=== PATIENT | female | born 1950 | race American Indian/Alaskan Native ===

== ENCOUNTER 2021-09-19 15:15 | Inpatient (IN) ==
--- NOTE | 2021-09-19 16:39 | Emergency Department Note ---
HPI General Chief complaint: Shortness of Breath/Dyspnea Stated complaint: SOB, Abdominal Pain Time Seen by Provider: 09/19/21 15:24 Source: patient and RN notes reviewed Mode of arrival: wheelchair Limitations: no limitations History of Present Illness HPI Narrative: Narrative: Related Data Home Medications Medication Instructions Recorded Confirmed omeprazole 20 mg tablet,delayed 20 mg PO BID 10/15/15 09/15/21 release oxybutynin chloride 5 mg tablet 5 mg PO BID tab 10/15/15 09/12/21 atorvastatin 80 mg tablet 80 mg PO QHS 11/02/19 09/12/21 carvedilol 6.25 mg tablet (Coreg) 6.25 mg PO BID 11/02/19 09/15/21 docusate sodium 100 mg capsule 100 mg PO QDAY 11/02/19 09/12/21 magnesium oxide 420 mg tablet 420 mg PO QDAY 11/02/19 09/12/21 potassium chloride 20 mEq 20 meq PO QDAY 11/02/19 09/12/21 tablet,extended release sucralfate 1 gram tablet 1 g PO BID tab 11/02/19 09/15/21 acetaminophen 325 mg tablet 325 mg PO Q4H PRN 09/12/21 09/12/21 aspirin 81 mg tablet,delayed 81 mg PO QDAY 09/12/21 09/15/21 release calcium carbonate 300 mg (750 mg) 325 mg PO TID 09/12/21 09/12/21 chewable tablet (Tums) cyanocobalamin (vitamin B-12) 1,000 mcg PO QDAY 09/12/21 09/12/21 1,000 mcg tablet (Vitamin B-12) ergocalciferol (vitamin D2) 1,250 1,250 mcg PO QMONTH 09/12/21 09/12/21 mcg (50,000 unit) capsule ibuprofen 200 mg tablet 400 mg PO Q6H PRN 09/12/21 09/12/21 polyethylene glycol 3350 17 gram 17 g PO QDAY 09/12/21 09/12/21 oral powder packet (Miralax) rituximab 10 mg/mL 1,000 mg IV MONTHLY 09/12/21 09/12/21 concentrate,intravenous (Rituxan) spironolactone 25 mg tablet 25 mg PO QDAY 09/12/21 09/15/21 vitamin A-vitamin C-vit E-min 1 tab PO QDAY 09/12/21 09/12/21 tablet warfarin 2.5 mg tablet 2.5 mg PO MOWEFR@1400 09/15/21 09/15/21 warfarin 4 mg tablet 4 mg PO SUTUTHSA@1400 09/15/21 09/15/21 Previous Rx's Medication Instructions Recorded cevimeline 30 mg capsule 1 cap PO TID #90 cap 05/21/21 prednisone 5 mg tablet 5 mg PO QDAY #90 tab 08/05/21 docusate sodium 100 mg capsule 100 mg PO QDAY #60 cap 09/15/21 hydrocodone 10 mg-acetaminophen 1 - 2 tab PO Q4HP PRN #75 tab 09/15/21 325 mg tablet Allergies Allergy/AdvReac Type Severity Reaction Status Date / Time lidocaine Allergy Severe Fainting Verified 09/15/21 09:28 nitrofurantoin AdvReac Severe Nausea and Verified 09/15/21 09:25 Diarrhea Review of Systems ROS ROS Narrative: Narrative: PFSH Narrative Patient History Narrative: Narrative: Medical/Surgical/Family History All Active Problems (Updated 09/19/21 @ 16:58 by Sudhir Douglas MD) Dyspnea (Acute) Stiffness of right wrist, not elsewhere classified (Chronic) Rheumatoid arthritis (Acute) Sjogrens syndrome (Acute) Hypertension (Chronic) Ataxic gait (Chronic) Pulmonary embolism (Chronic) History of DVT (deep vein thrombosis) (Chronic) Anemia (Chronic) Hx of bilateral cataract extraction (Chronic) Heartburn (Chronic) Headache (Chronic) Depression (Chronic) Sinusitis (Chronic) Frequent urination at night (Chronic) Easy bruising (Chronic) 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) Sicca syndrome (Chronic) Elevated erythrocyte sedimentation rate (Chronic) Long-term current use of steroids (Chronic) Dermatitis (Chronic) Tobacco use disorder (Chronic) Joint pain (Chronic) UTI (urinary tract infection) (Chronic) Muscle weakness (Chronic) Muscle tenderness (Chronic) Joint swelling (Chronic) Sneezing (Chronic) Elevated liver enzymes (Chronic) Antinuclear factor positive (Chronic) Encounter for long-term (current) use of high-risk medication (Acute) Antiphospholipid antibody syndrome (Chronic) Overlap syndrome (Chronic) Uncontrolled hypertension (Chronic) Onychomycosis due to dermatophyte (Chronic) Colon polyps (Chronic) Chronic kidney disease (Chronic) Vitamin D deficiency (Chronic) Osteopenia (Chronic) Mild ascending aorta dilation (Chronic) Blood coagulation disorder (Chronic) B12 deficiency (Chronic) Neurogenic bladder (Chronic) Seasonal allergic rhinitis (Chronic) Phlebitis and thrombophlebitis (Chronic) Secondary iritis of both eyes (Chronic) Pseudophakia (Chronic) Essential hypertension (Chronic) Chronic anticoagulation (Chronic) Chronic back pain (Chronic) Chronic depression (Chronic) Chronic serous otitis media (Chronic) GERD (gastroesophageal reflux disease) (Chronic) Labile essential hypertension (Chronic) Lower urinary tract infectious disease (Chronic) Malaise and fatigue (Chronic) Dry eyes (Chronic) Ptosis of eyelid (Chronic) After-cataract with vision obscured (Chronic) Pharyngitis (Chronic) Streptococcal sore throat (Chronic) Dehydration (Chronic) Abrasion or friction burn of shoulder without infection (Chronic) 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 (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) Nonexudative age-related macular degeneration (Chronic) Suspected UTI (Chronic) Hereditary thrombophilia (Chronic) Weight decreased (Chronic) Abnormal weight loss (Chronic) Dysphasia (Chronic) Upper respiratory infection (Chronic) Myopia (Chronic) Presbyopia (Chronic) Gastritis (Chronic) Cough (Chronic) Hypokalemia (Chronic) Onychogryposis (Chronic) Onychomycosis (Chronic) Bilateral foot pain (Chronic) Contusion of rib (Chronic) Fall (Chronic) Dizziness (Chronic) Rib pain (Chronic) Toe pain, bilateral (Chronic) Irregular heart rate (Chronic) Supraventricular tachycardia (Chronic) Uterine fibroid (Chronic) Thrombophlebitis of left leg (Chronic) Erythema nodosum (Chronic) Venous stasis ulcer of left lower extremity (Chronic) History of EKG (Chronic 11/20/09) Stenosing tenosynovitis of finger of left hand (Acute) Osteoporosis (Chronic) Acute coronary syndrome with high troponin (Acute) Medical History (Updated 09/19/21 @ 16:58 by Sudhir Douglas MD) Abnormal weight loss Abrasion or friction burn of shoulder without infection After-cataract with vision obscured Anemia Antiphospholipid antibody syndrome Ataxic gait B12 deficiency Bilateral foot pain Blood coagulation disorder Chronic anticoagulation Chronic back pain Chronic depression Chronic kidney disease Chronic serous otitis media Colon polyps Contusion of rib Cough Dehydration Depression Dermatitis Dizziness Dry eyes Dysphasia Easy bruising Elevated erythrocyte sedimentation rate Elevated liver enzymes Encounter for long-term (current) use of high-risk medication Erythema nodosum Essential hypertension Fall Frequent urination at night Gastritis GERD (gastroesophageal reflux disease) Headache Heartburn Hereditary thrombophilia History of DVT (deep vein thrombosis) On Coumadin since June 2006 History of EKG (11/20/09) Hypertension Hypokalemia Irregular heart rate Joint pain Joint swelling Labile essential hypertension half-way use of drug Long-term current use of steroids Lower urinary tract infectious disease Malaise and fatigue Mild ascending aorta dilation Muscle tenderness Muscle weakness Myopia Neurogenic bladder Nonexudative age-related macular degeneration Onychogryposis Onychomycosis Onychomycosis due to dermatophyte Osteopenia Osteoporosis 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 Overlap syndrome Pharyngitis Phlebitis and thrombophlebitis Presbyopia Pseudophakia Ptosis of eyelid Pulmonary embolism 2005 Rheumatoid arthritis Rib pain Seasonal allergic rhinitis Secondary iritis of both eyes Sicca syndrome Sinusitis Sjogrens syndrome Sneezing Frequent Stenosing tenosynovitis of finger of left hand Stiffness of right wrist, not elsewhere classified Streptococcal sore throat Supraventricular tachycardia Suspected UTI Thrombophlebitis of left leg resolved Tobacco use disorder Toe pain, bilateral Uncontrolled hypertension Upper respiratory infection Uterine fibroid UTI (urinary tract infection) Post-antibiotic Venous stasis ulcer of left lower extremity Vitamin D deficiency Weight decreased Surgical History H/O: hysterectomy 1992 History of cataract surgery (05/23/14) History of colonoscopy (10/25/15) Hx of bilateral cataract extraction Status post debridement (10/14/11) toenail Family History Father Heart failure at age 80 Mother Tuberculosis Cardiac disease at age 55 Sister Malignant neoplasm Social History Smoking Status: Former smoker Alcohol Intake Frequency: does not drink Substance Use: does not use Exam Narrative Narrative: Narrative: General Limitations: no limitations Course Vital Signs Vital signs: Vital Signs Temperature 100.6 F H 09/19/21 15:16 Pulse Rate 90 09/19/21 15:16 Respiratory Rate 20 09/19/21 15:16 Blood Pressure 115/75 09/19/21 15:16 Pulse Oximetry (%) 84 L 09/19/21 15:16 Temperature 100.6 F H 09/19/21 15:16 Pulse Rate 92 H 09/19/21 16:57 Respiratory Rate 20 09/19/21 15:16 Blood Pressure 143/88 09/19/21 16:57 Pulse Oximetry (%) 88 L 09/19/21 16:57 MDM MDM Narrative Medical decision making narrative: Narrative: Lab Data Result diagrams: 09/19/21 16:58 09/19/21 16:58 EKG Data EKG #1: EKG attestation: Yes I reviewed and interpreted this EKG. and Yes There are no EKG findings of acute coronary syndrome EKG results narrative: Normal sinus rhythm at [address] elevation or depression. Evidence of LVH. Interpretation: no acute changes Discharge Plan Patient/Caregiver Discharge Instructions Follow up with: Rhona Skinner MD [Primary Care Provider] - Prescriptions: No Action prednisone 5 mg tablet 5 mg PO QDAY Qty: 90 0RF Rx Instructions: administer with food or milk oxybutynin chloride 5 mg tablet 5 mg PO BID 0RF omeprazole 20 mg tablet,delayed release (DR/EC) 20 mg PO BID 0RF sucralfate 1 gram tablet 1 g PO BID 0RF potassium chloride 20 mEq tablet extended release 20 meq PO QDAY 0RF magnesium oxide 420 mg tablet 420 mg PO QDAY 0RF atorvastatin 80 mg tablet 80 mg PO QHS 0RF docusate sodium 100 mg capsule 100 mg PO QDAY 0RF carvedilol [Coreg] 6.25 mg tablet 6.25 mg PO BID 0RF cevimeline 30 mg capsule 1 cap PO TID Qty: 90 5RF acetaminophen 325 mg Tablet 325 mg PO Q4H PRN (Reason: Pain) 0RF polyethylene glycol 3350 [Miralax] 17 gram Powder In Packet 17 g PO QDAY 0RF Rx Instructions: q other day cyanocobalamin (vitamin B-12) [Vitamin B-12] 1,000 mcg Tablet 1,000 mcg PO QDAY 0RF calcium carbonate [Tums] 300 mg (750 mg) Tablet,Chewable 325 mg PO TID 0RF spironolactone 25 mg Tablet 25 mg PO QDAY 0RF ergocalciferol (vitamin D2) 1,250 mcg (50,000 unit) Capsule 1,250 mcg PO QMONTH 0RF Rituxan 10 mg/mL Concentrate 1,000 mg IV MONTHLY 0RF Rx Instructions: Q6 months Ocuvite Tablet 1 tab PO QDAY 0RF aspirin 81 mg Tablet,Delayed Release (Dr/Ec) 81 mg PO QDAY 0RF ibuprofen 200 mg Tablet 400 mg PO Q6H PRN (Reason: Pain) 0RF hydrocodone-acetaminophen 10-325 mg Tablet 1 - 2 tab PO Q4HP PRN (Reason: Per Pain Protocol) Qty: 75 0RF docusate sodium 100 mg Capsule 100 mg PO QDAY Qty: 60 0RF warfarin 2.5 mg Tablet 2.5 mg PO MOWEFR@1400 0RF warfarin 4 mg Tablet 4 mg PO SUTUTHSA@1400 0RF
--- NOTE | 2021-09-19 17:25 | Emergency Department Note ---
HPI General Chief complaint: Shortness of Breath/Dyspnea Stated complaint: SOB, Abdominal Pain Time Seen by Provider: 09/19/21 15:24 Source: patient and RN notes reviewed Mode of arrival: wheelchair Limitations: no limitations History of Present Illness HPI Narrative: 70-year-old female with past medical history of Sjogren's syndrome, rheumatoid arthritis, hypertension, antiphospholipid antibody syndrome with prior DVT and PE, CKD, and CAD presenting with shortness of breath. Patient had an ORIF for a right humerus fracture 4 days ago and was discharged to a [facility] facility. She states she has been short of breath for the last 2 days and today she was noted to be hypoxic to the mid 80s on room air. Patient is not on O2 at baseline. Patient also endorses left lower quadrant abdominal pain and had one episode of vomiting. No diarrhea, blood in the stool, melena, dysuria, or hematuria. Patient denies fever or cough. She has received the Covid vaccine. She is on warfarin and has been compliant. History of hysterectomy. No lower extremity swelling. Related Data Home Medications Medication Instructions Recorded Confirmed omeprazole 20 mg tablet,delayed 20 mg PO BID 10/15/15 09/15/21 release oxybutynin chloride 5 mg tablet 5 mg PO BID tab 10/15/15 09/12/21 atorvastatin 80 mg tablet 80 mg PO QHS 11/02/19 09/12/21 carvedilol 6.25 mg tablet (Coreg) 6.25 mg PO BID 11/02/19 09/15/21 docusate sodium 100 mg capsule 100 mg PO QDAY 11/02/19 09/12/21 magnesium oxide 420 mg tablet 420 mg PO QDAY 11/02/19 09/12/21 potassium chloride 20 mEq 20 meq PO QDAY 11/02/19 09/12/21 tablet,extended release sucralfate 1 gram tablet 1 g PO BID tab 11/02/19 09/15/21 acetaminophen 325 mg tablet 325 mg PO Q4H PRN 09/12/21 09/12/21 aspirin 81 mg tablet,delayed 81 mg PO QDAY 09/12/21 09/15/21 release calcium carbonate 300 mg (750 mg) 325 mg PO TID 09/12/21 09/12/21 chewable tablet (Tums) cyanocobalamin (vitamin B-12) 1,000 mcg PO QDAY 09/12/21 09/12/21 1,000 mcg tablet (Vitamin B-12) ergocalciferol (vitamin D2) 1,250 1,250 mcg PO QMONTH 09/12/21 09/12/21 mcg (50,000 unit) capsule ibuprofen 200 mg tablet 400 mg PO Q6H PRN 09/12/21 09/12/21 polyethylene glycol 3350 17 gram 17 g PO QDAY 09/12/21 09/12/21 oral powder packet (Miralax) rituximab 10 mg/mL 1,000 mg IV MONTHLY 09/12/21 09/12/21 concentrate,intravenous (Rituxan) spironolactone 25 mg tablet 25 mg PO QDAY 09/12/21 09/15/21 vitamin A-vitamin C-vit E-min 1 tab PO QDAY 09/12/21 09/12/21 tablet warfarin 2.5 mg tablet 2.5 mg PO MOWEFR@1400 09/15/21 09/15/21 warfarin 4 mg tablet 4 mg PO SUTUTHSA@1400 09/15/21 09/15/21 Previous Rx's Medication Instructions Recorded cevimeline 30 mg capsule 1 cap PO TID #90 cap 05/21/21 prednisone 5 mg tablet 5 mg PO QDAY #90 tab 08/05/21 docusate sodium 100 mg capsule 100 mg PO QDAY #60 cap 09/15/21 hydrocodone 10 mg-acetaminophen 1 - 2 tab PO Q4HP PRN #75 tab 09/15/21 325 mg tablet Allergies Allergy/AdvReac Type Severity Reaction Status Date / Time lidocaine Allergy Severe Fainting Verified 09/15/21 09:28 nitrofurantoin AdvReac Severe Nausea and Verified 09/15/21 09:25 Diarrhea Review of Systems ROS ROS Narrative: Narrative: Constitutional: Denies fever or chills ENT ED: Denies throat pain Cardiovascular: Denies chest pain Respiratory: Reports shortness of breath; Denies cough Gastrointestinal: Reports abdominal pain, nausea and vomiting; Denies diarrhea or melena Genitourinary: Denies dysuria or frequency Musculoskeletal: Denies back pain or joint swelling Integumentary: Denies rash Neurological: Denies headache, weakness or dizziness Psychiatric: Denies anxiety Hematological/Lymphatic: Denies easy bleeding PFSH Narrative Patient History Narrative: Narrative: Medical/Surgical/Family History All Active Problems (Updated 09/19/21 @ 19:29 by Sudhir Douglas MD) Bilateral pneumonia (Acute) Hypoxia (Acute) Dyspnea (Acute) Stiffness of right wrist, not elsewhere classified (Chronic) Rheumatoid arthritis (Acute) Sjogrens syndrome (Acute) Hypertension (Chronic) Ataxic gait (Chronic) Pulmonary embolism (Chronic) History of DVT (deep vein thrombosis) (Chronic) Anemia (Chronic) Hx of bilateral cataract extraction (Chronic) Heartburn (Chronic) Headache (Chronic) Depression (Chronic) Sinusitis (Chronic) Frequent urination at night (Chronic) Easy bruising (Chronic) 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) Sicca syndrome (Chronic) Elevated erythrocyte sedimentation rate (Chronic) Long-term current use of steroids (Chronic) Dermatitis (Chronic) Tobacco use disorder (Chronic) Joint pain (Chronic) UTI (urinary tract infection) (Chronic) Muscle weakness (Chronic) Muscle tenderness (Chronic) Joint swelling (Chronic) Sneezing (Chronic) Elevated liver enzymes (Chronic) Antinuclear factor positive (Chronic) Encounter for long-term (current) use of high-risk medication (Acute) Antiphospholipid antibody syndrome (Chronic) Overlap syndrome (Chronic) Uncontrolled hypertension (Chronic) Onychomycosis due to dermatophyte (Chronic) Colon polyps (Chronic) Chronic kidney disease (Chronic) Vitamin D deficiency (Chronic) Osteopenia (Chronic) Mild ascending aorta dilation (Chronic) Blood coagulation disorder (Chronic) B12 deficiency (Chronic) Neurogenic bladder (Chronic) Seasonal allergic rhinitis (Chronic) Phlebitis and thrombophlebitis (Chronic) Secondary iritis of both eyes (Chronic) Pseudophakia (Chronic) Essential hypertension (Chronic) Chronic anticoagulation (Chronic) Chronic back pain (Chronic) Chronic depression (Chronic) Chronic serous otitis media (Chronic) GERD (gastroesophageal reflux disease) (Chronic) Labile essential hypertension (Chronic) Lower urinary tract infectious disease (Chronic) Malaise and fatigue (Chronic) Dry eyes (Chronic) Ptosis of eyelid (Chronic) After-cataract with vision obscured (Chronic) Pharyngitis (Chronic) Streptococcal sore throat (Chronic) Dehydration (Chronic) Abrasion or friction burn of shoulder without infection (Chronic) 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) Nonexudative age-related macular degeneration (Chronic) Suspected UTI (Chronic) Hereditary thrombophilia (Chronic) Weight decreased (Chronic) Abnormal weight loss (Chronic) Dysphasia (Chronic) Upper respiratory infection (Chronic) Myopia (Chronic) Presbyopia (Chronic) Gastritis (Chronic) Cough (Chronic) Hypokalemia (Chronic) Onychogryposis (Chronic) Onychomycosis (Chronic) Bilateral foot pain (Chronic) Contusion of rib (Chronic) Fall (Chronic) Dizziness (Chronic) Rib pain (Chronic) Toe pain, bilateral (Chronic) Irregular heart rate (Chronic) Supraventricular tachycardia (Chronic) Uterine fibroid (Chronic) Thrombophlebitis of left leg (Chronic) Erythema nodosum (Chronic) Venous stasis ulcer of left lower extremity (Chronic) History of EKG (Chronic 11/20/09) Stenosing tenosynovitis of finger of left hand (Acute) Osteoporosis (Chronic) Acute coronary syndrome with high troponin (Acute) Medical History (Updated 09/19/21 @ 19:29 by Sudhir Douglas MD) Abnormal weight loss Abrasion or friction burn of shoulder without infection After-cataract with vision obscured Anemia Antiphospholipid antibody syndrome Ataxic gait B12 deficiency Bilateral foot pain Blood coagulation disorder Chronic anticoagulation Chronic back pain Chronic depression Chronic kidney disease Chronic serous otitis media Colon polyps Contusion of rib Cough Dehydration Depression Dermatitis Dizziness Dry eyes Dysphasia Easy bruising Elevated erythrocyte sedimentation rate Elevated liver enzymes Encounter for long-term (current) use of high-risk medication Erythema nodosum Essential hypertension Fall Frequent urination at night Gastritis GERD (gastroesophageal reflux disease) Headache Heartburn Hereditary thrombophilia History of DVT (deep vein thrombosis) On Coumadin since June 2006 History of EKG (11/20/09) Hypertension Hypokalemia Irregular heart rate Joint pain Joint swelling Labile essential hypertension 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 Long-term current use of steroids Lower urinary tract infectious disease Malaise and fatigue Mild ascending aorta dilation Muscle tenderness Muscle weakness Myopia Neurogenic bladder Nonexudative age-related macular degeneration Onychogryposis Onychomycosis Onychomycosis due to dermatophyte Osteopenia Osteoporosis Other [facility] (current) drug therapy Overlap syndrome Pharyngitis Phlebitis and thrombophlebitis Presbyopia Pseudophakia Ptosis of eyelid Pulmonary embolism 2005 Rheumatoid arthritis Rib pain Seasonal allergic rhinitis Secondary iritis of both eyes Sicca syndrome Sinusitis Sjogrens syndrome Sneezing Frequent Stenosing tenosynovitis of finger of left hand Stiffness of right wrist, not elsewhere classified Streptococcal sore throat Supraventricular tachycardia Suspected UTI Thrombophlebitis of left leg resolved Tobacco use disorder Toe pain, bilateral Uncontrolled hypertension Upper respiratory infection Uterine fibroid UTI (urinary tract infection) Post-antibiotic Venous stasis ulcer of left lower extremity Vitamin D deficiency Weight decreased Surgical History H/O: hysterectomy 1992 History of cataract surgery (05/23/14) History of colonoscopy (10/25/15) Hx of bilateral cataract extraction Status post debridement (10/14/11) toenail Family History Father Heart failure at age 80 Mother Tuberculosis Cardiac disease at age 55 Sister Malignant neoplasm Social History Smoking Status: Former smoker Alcohol Intake Frequency: does not drink Substance Use: does not use Exam Narrative Narrative: Narrative: General Limitations: no limitations General appearance: Present alert and other (In mild respiratory distress) Head Head: Present atraumatic and normocephalic Eye Eye: Present normal appearance, PERRL and EOMI; Absent scleral icterus or conjunctival injection ENT ENT: Present mucous membranes moist Neck Neck: Present normal inspection, full ROM and trachea midline; Absent meningismus or lymphadenopathy Chest Chest: Present symmetric chest wall rise Respiratory Respiratory: Present respiratory distress and other (Coarse breath sounds b ilaterally); Absent wheezes, stridor, accessory muscle use or prolonged expiratory phase Cardiovascular Cardiovascular: Present regular rate and normal rhythm; Absent systolic murmur or diastolic murmur Adbominal Abdominal: Present soft and tenderness (Left lower quadrant tenderness to palpation); Absent distention, guarding, rebound, rigidity, organomegaly or mass Extremities Extremities: Present other (Right upper extremity in sling); Absent pretibial edema Back Back: Present normal inspection; Absent CVA tenderness (R) or CVA tenderness (L) Neurological Neurological: Present alert, oriented X3 and CN II-XII intact; Absent motor sensory deficit Psychiatric Psychiatric: Present normal affect and normal mood Skin Skin: Present warm (WNL) and dry Course Vital Signs Vital signs: Vital Signs Temperature 100.6 F H 09/19/21 15:16 Pulse Rate 90 09/19/21 15:16 Respiratory Rate 20 09/19/21 15:16 Blood Pressure 115/75 09/19/21 15:16 Pulse Oximetry (%) 84 L 09/19/21 15:16 Temperature 100.6 F H 09/19/21 15:16 Pulse Rate 83 09/19/21 19:11 Respiratory Rate 20 09/19/21 15:16 Blood Pressure 113/77 09/19/21 18:44 Pulse Oximetry (%) 96 09/19/21 19:11 MDM MDM Narrative Medical decision making narrative: 70-year-old female presenting with shortness of breath and hypoxia. She is hypoxic on room air to 85%. She has coarse breath sounds bilaterally and has left lower quadrant tenderness on exam. EKG with no ischemic changes. Will obtain labs, chest x-ray, CT, and reevaluate. Labs notable for leukopenia to 1.2, hyponatremia to 127, elevated lactic acid level 2.1 and elevated procalcitonin to 3.77. Chest x-ray is consistent with bilateral pneumonia. Rapid Covid test is negative. Blood cultures sent. She was given a 30 mL/kg normal saline bolus as well as 1.5 g of vancomycin and 3.[address] of the abdomen obtained given her left lower quadrant pain and it shows no acute abnormality. Patient is requiring 3 to 4 L of O2 via nasal cannula to maintain saturations. Plan for admission, will see if we have bed availability here. Patient signed out to patel BENAVIDES, Dr. Luna. Lab Data Lab results reviewed: Yes I reviewed the patient's lab results. Result diagrams: 09/19/21 16:58 09/19/21 16:58 Labs: Lab Results 09/19/21 09/19/21 09/19/21 Range/Units 16:58 16:58 16:58 WBC 1.2 L (4.5-11.0) K/mcL RBC 4.19 (3.59-5.38) M/mcL Hgb 13.1 (11.2-15.7) g/dL Hct 39.5 (34.1-44.9) % MCV 94.3 (80.0-100.0) fL MCH 31.3 (26.0-34.0) pg MCHC 33.2 (31.0-36.0) g/dL RDW 13.5 (11.5-14.5) % Plt Count 222 (140-440) K/mcL MPV 11.2 H (7.4-10.4) fL Neut % (Auto) 82.9 H (38.0-78.0) % Lymph % (Auto) 12.0 L (15.5-49.0) % [place] % (Auto) 5.1 (1.0-12.0) % Eos % (Auto) 0 (0.0-7.0) % Baso % (Auto) 0 (0.0-2.0) % Lymph # (Auto) 0.14 L (1.50-4.80) K/mcL [place] # (Auto) 0.06 L (0.10-0.90) K/mcL Eos # (Auto) 0 (0.00-0.70) K/mcL Baso # (Auto) 0 (0.00-0.30) K/mcL Absolute Neutrophils 0.97 L* (1.80-8.00) K/mcL PT (11.9-14.5) sec INR (0.9-1.1) VBG Lactic Acid (0.5-2.0) mmol/L Sodium 127 L (133-145) mmol/L Potassium 5.1 (3.3-5.1) mmol/L Chloride 89 L (96-108) mmol/L Carbon Dioxide 25 (22-30) mmol/L Anion Gap 13.0 (8.0-16.0) BUN 28 H (8-23) mg/dL Creatinine 0.7 (0.6-1.1) mg/dL GFR Calculation 87 Glucose 81 (70-105) mg/dL Calcium 8.1 L (8.6-10.4) mg/dL Total Bilirubin 1.7 H (0.1-1.0) mg/dL AST 38 H (<32) U/L ALT 10 (<40) U/L Alkaline Phosphatase 88 (39-117) U/L Total Protein 6.3 (5.9-8.4) gm/dL Albumin 3.2 (3.2-5.2) gm/dL Globulin 3.1 (2.2-3.7) gm/dL Albumin/Globulin Ratio 1.0 (1.0-2.3) Procalcitonin (<0.10) ng/mL POC Troponin I 0.01 L (0.02-0.08) ng/mL 09/19/21 09/19/21 09/19/21 Range/Units 16:58 16:58 17:33 WBC (4.5-11.0) K/mcL RBC (3.59-5.38) M/mcL Hgb (11.2-15.7) g/dL Hct (34.1-44.9) % MCV (80.0-100.0) fL MCH (26.0-34.0) pg MCHC (31.0-36.0) g/dL RDW (11.5-14.5) % Plt Count (140-440) K/mcL MPV (7.4-10.4) fL Neut % (Auto) (38.0-78.0) % Lymph % (Auto) (15.5-49.0) % [place] % (Auto) (1.0-12.0) % Eos % (Auto) (0.0-7.0) % Baso % (Auto) (0.0-2.0) % Lymph # (Auto) (1.50-4.80) K/mcL [place] # (Auto) (0.10-0.90) K/mcL Eos # (Auto) (0.00-0.70) K/mcL Baso # (Auto) (0.00-0.30) K/mcL Absolute Neutrophils (1.80-8.00) K/mcL PT 18.4 H (11.9-14.5) sec INR 1.5 H (0.9-1.1) VBG Lactic Acid 2.1 H (0.5-2.0) mmol/L Sodium (133-145) mmol/L Potassium (3.3-5.1) mmol/L Chloride (96-108) mmol/L Carbon Dioxide (22-30) mmol/L Anion Gap (8.0-16.0) BUN (8-23) mg/dL Creatinine (0.6-1.1) mg/dL GFR Calculation Glucose (70-105) mg/dL Calcium (8.6-10.4) mg/dL Total Bilirubin (0.1-1.0) mg/dL AST (<32) U/L ALT (<40) U/L Alkaline Phosphatase (39-117) U/L Total Protein (5.9-8.4) gm/dL Albumin (3.2-5.2) gm/dL Globulin (2.2-3.7) gm/dL Albumin/Globulin Ratio (1.0-2.3) Procalcitonin 3.77 H (<0.10) ng/mL POC Troponin I (0.02-0.08) ng/mL ED POC Tests ED POC Tests: SHANTEL - SARS Antigen Negative Radiology Data Radiology results reviewed: Yes I reviewed the patient's radiology results. Radiology results narrative: Ordering Physician:Sudhir Douglas M.D. Date of Service:09/19/21 Procedure(s):XR chest 1V portable CLINICAL INFORMATION: Shortness of breath COMPARISON: 09/30/2020 TECHNIQUE: PA and Lateral views FINDINGS: Mild cardiomegaly is unchanged. Thoracic aorta ectasia noted. Remaining mediastinum and pulmonary vessels are normal. Moderate alveolar infiltrate is developed in the left mid and lower lung. A small alveolar infiltrate has developed in the right lower lung. The colonic hepatic flexure interposition between the liver and the diaphragm as previously seen. No effusions. IMPRESSION: Moderate left mid/lower lung infiltrate and small right lower lung infiltrate. Interpreted and Authenticated by: Prateek Ngo 09/19/21 CT abdomen pelvis without contrast: No acute abnormality noted. Extensive airspace disease noted in the lung bases, per outside radiology read. Discharge Plan Patient/Caregiver Discharge Instructions Pt seen by MANAGER SURGICAL/PA only: No Clinical Impression: Bilateral pneumonia, Hypoxia Patient Disposition: Still a Patient Follow up with: Rhona Skinner MD [Primary Care Provider] - Prescriptions: No Action prednisone 5 mg tablet 5 mg PO QDAY Qty: 90 0RF Rx Instructions: administer with food or milk oxybutynin chloride 5 mg tablet 5 mg PO BID 0RF omeprazole 20 mg tablet,delayed release (DR/EC) 20 mg PO BID 0RF sucralfate 1 gram tablet 1 g PO BID 0RF potassium chloride 20 mEq tablet extended release 20 meq PO QDAY 0RF magnesium oxide 420 mg tablet 420 mg PO QDAY 0RF atorvastatin 80 mg tablet 80 mg PO QHS 0RF docusate sodium 100 mg capsule 100 mg PO QDAY 0RF carvedilol [Coreg] 6.25 mg tablet 6.25 mg PO BID 0RF cevimeline 30 mg capsule 1 cap PO TID Qty: 90 5RF acetaminophen 325 mg Tablet 325 mg PO Q4H PRN (Reason: Pain) 0RF polyethylene glycol 3350 [Miralax] 17 gram Powder In Packet 17 g PO QDAY 0RF Rx Instructions: q other day cyanocobalamin (vitamin B-12) [Vitamin B-12] 1,000 mcg Tablet 1,000 mcg PO QDAY 0RF calcium carbonate [Tums] 300 mg (750 mg) Tablet,Chewable 325 mg PO TID 0RF spironolactone 25 mg Tablet 25 mg PO QDAY 0RF ergocalciferol (vitamin D2) 1,250 mcg (50,000 unit) Capsule 1,250 mcg PO QMONTH 0RF Rituxan 10 mg/mL Concentrate 1,000 mg IV MONTHLY 0RF Rx Instructions: Q6 months Ocuvite Tablet 1 tab PO QDAY 0RF aspirin 81 mg Tablet,Delayed Release (Dr/Ec) 81 mg PO QDAY 0RF ibuprofen 200 mg Tablet 400 mg PO Q6H PRN (Reason: Pain) 0RF hydrocodone-acetaminophen 10-325 mg Tablet 1 - 2 tab PO Q4HP PRN (Reason: Per Pain Protocol) Qty: 75 0RF docusate sodium 100 mg Capsule 100 mg PO QDAY Qty: 60 0RF warfarin 2.5 mg Tablet 2.5 mg PO MOWEFR@1400 0RF warfarin 4 mg Tablet 4 mg PO SUTUTHSA@1400 0RF
[2021-09-19] MEDS ORDERED: HYDROcodone/APAP 5/325MG TABLET PO ONE (17:27)
--- NOTE | 2021-09-19 17:45 | XRay Report ---
CLINICAL INFORMATION: Shortness of breath COMPARISON: 09/30/2020 TECHNIQUE: PA and Lateral views FINDINGS: Mild cardiomegaly is unchanged. Thoracic aorta ectasia noted. Remaining mediastinum and pulmonary vessels are normal. Moderate alveolar infiltrate is developed in the left mid and lower lung. A small alveolar infiltrate has developed in the right lower lung. The colonic hepatic flexure interposition between the liver and the diaphragm as previously seen. No effusions. IMPRESSION: Moderate left mid/lower lung infiltrate and small right lower lung infiltrate. Interpreted and Authenticated by: Prateek Ngo 09/19/21
[2021-09-19 18:01] LABS: Basophils # (Auto) 0 K/mcL (0.00-0.30); Basophils % (Auto) 0 % (0.0-2.0); Eosinophils # (Auto) 0 K/mcL (0.00-0.70); Eosinophils % (Auto) 0 % (0.0-7.0); Hematocrit 39.5 % (34.1-44.9); Hemoglobin 13.1 g/dL (11.2-15.7); Lymphocytes # (Auto) 0.14 K/mcL (1.50-4.80); Mean Cell Volume 94.3 fL (80.0-100.0); Mean Corpuscular HGB Conc 33.2 g/dL (31.0-36.0); Mean Platelet Volume 11.2 fL (7.4-10.4); Monocytes # (Auto) 0.06 K/mcL (0.10-0.90); Monocytes % (Auto) 5.1 % (1.0-12.0); Platelet Count 222 K/mcL (140-440); RBC 4.19 M/mcL (3.59-5.38); Red Cell Distribution Width 13.5 % (11.5-14.5); WBC 1.2 K/mcL (4.5-11.0)
[2021-09-19 18:04] LABS: ALT/SGPT 10 U/L (<40); AST/SGOT 38 U/L (<32); Albumin 3.2 gm/dL (3.2-5.2); Alkaline Phosphatase 88 U/L (39-117); Bilirubin,Total 1.7 mg/dL (0.1-1.0); Blood Urea Nitrogen 28 mg/dL (8-23); Calcium 8.1 mg/dL (8.6-10.4); Carbon Dioxide 25 mmol/L (22-30); Chloride 89 mmol/L (96-108); Globulin 3.1 gm/dL (2.2-3.7); Glomerular Filtration Rate 87; Glucose 81 mg/dL (70-105)
[2021-09-19] MEDS ORDERED: 0.9 % SODIUM CHLORIDE 1,000 ML IV ONE (18:14)
[2021-09-19] MEDS ORDERED: PIPERACILLIN SODIUM/TAZOBACTAM 3.375 GM in DEXTROSE 5% IN WATER 50 ML IV ONE (18:23)
[2021-09-19] MEDS ORDERED: VANCOMYCIN 1,500 MG in 0.9 % SODIUM CHLORIDE 500 ML IV ONE (18:23)
[2021-09-19] MEDS ORDERED: 0.9 % SODIUM CHLORIDE 1,000 ML BAG IV ONE (18:23)
[2021-09-19] MEDS ORDERED: ONDANSETRON 4 MG/2 ML VIAL IV ONE (18:28)
[2021-09-19 18:44] LABS: INR 1.5 (0.9-1.1); Prothrombin Time 18.4 sec (11.9-14.5)
[2021-09-19 19:45] LABS: Neutrophils % (Auto) 82.9 % (38.0-78.0)
--- NOTE | 2021-09-19 19:59 | EKG ---
[facility] Test Date: 2021-09-19 Pat Name: Sima Gómez Department: ED Room: Gender: Female Hospital Carrier: : 1950 Requested By: Sudhir Douglas Order Number: [id number] Reading MD: Ro Barrientos D.O. Measurements Intervals [place] Rate: 91 P: 34 MA: 126 QRS: 11 QRSD: 87 T: 12 QT: 339 QTc: 418 Interpretive Statements Sinus rhythm Probable left ventricular hypertrophy Electronically Signed On 09-19-2021 19:59:46 PST by Ro Barrientos D.O. /store/[email or web address]/[id number]
--- NOTE | 2021-09-19 22:38 | Emergency Department Note ---
ED Note Addendum Note Addendum: I received signout of this patient at [address] Sudhir Douglas. In brief 70-year-old female with bilateral pneumonia on chest x-ray on oxygen with CT pending. CT scan came back and revealed no acute intra-abdominal or pelvic abnormality. Large amount of retained fecal content. No evidence of bowel obstruction. Distended urinary bladder. Extensive airspace disease in the lung bases compatible with bilateral pneumonia multiple degenerative arthritic changes in the lumbar spine with chronic compression fractures of T11 and T12. I discussed the results with the hospitalist who agreed to come down to the ER and admit the patient to the hospital for further care
[2021-09-19] MEDS ORDERED: VANCOMYCIN PER PHARMACY IV ONE (23:04)
[2021-09-19] MEDS ORDERED: MAGNESIUM HYDROXIDE 30 ML ORAL.SUSP PO PRN (23:08)
[2021-09-19] MEDS ORDERED: NALOXONE HCL 0.4 MG/ML VIAL IV PRN (23:08)
[2021-09-19] MEDS ORDERED: ACETAMINOPHEN 325 MG TABLET PO PRN (23:08)
[2021-09-19] MEDS ORDERED: PROMETHAZINE 25 MG/ML VIAL IV PRN (23:08)
[2021-09-19] MEDS ORDERED: NITROGLYCERIN 0.4 MG TAB.SUBL SL PRN (23:08)
[2021-09-19] MEDS ORDERED: FLEETS ADULT ENEMA PR ONE (23:14)
[2021-09-19] MEDS ORDERED: SENNOSIDES 1 TABLET PO SCH (23:15)
--- NOTE | 2021-09-20 00:04 | Internal Med History&Physical ---
HPI History of Present Illness Patient information: Note initiated : 09/19/21 at 11:58 pm Service Date, if different from initiated Date: [] Patient: Sima Gómez a 70 y/o F admitted on 09/19/21 for SOB, Abdominal Pain. Chief Complaint: [] History of present illness: Ms. Gómez is a 70 year old F With history of inflammatory arthritis, history of DVT antiphospholipid syndrome, on Coumadin for anticoagulation, presents to the emergency room today for evaluation of shortness of breath. The patient had a right shoulder open reduction and internal fixation done a few days ago at this facility. Subsequently [facility] was [facility] a [facility]. Over the last 2 days in the [facility] the patient has reported progressive shortness of breath, this is associated with cough, subjective sensation of fever, as well as some nausea. The patient does not recollect when her last bowel movement was. Given that she was noted to be hypoxic at the SNF, associated with shortness of breath she was sent to the emergency room for further evaluation. On arrival to the emergency room patient was noted to be hypoxic in the 80s, requiring 4 to 5 L of oxygen to maintain oxygen saturation more than 90%. She was mildly tachycardic and had soft blood pressures. Chest x-ray showed bilateral pneumonia, CT scan of the abdomen pelvis was done which confirms a pneumonia, noted significant stool retention but no acute intra-abdominal pathology, no obstruction. Lab work showed leukopenia, elevated procalcitonin. Patient is going to be admitted to the hospital for management of respiratory failure and pneumonia. Review of Systems All systems: reviewed and no additional remarkable complaints except as stated PFSH PFSH All Active Problems Bilateral pneumonia (Acute) Hypoxia (Acute) Dyspnea (Acute) Stiffness of right wrist, not elsewhere classified (Chronic) Rheumatoid arthritis (Acute) Sjogrens syndrome (Acute) Hypertension (Chronic) Ataxic gait (Chronic) Pulmonary embolism (Chronic) History of DVT (deep vein thrombosis) (Chronic) Anemia (Chronic) Hx of bilateral cataract extraction (Chronic) Heartburn (Chronic) Headache (Chronic) Depression (Chronic) Sinusitis (Chronic) Frequent urination at night (Chronic) Easy bruising (Chronic) long-term use of drug (Chronic) Sicca syndrome (Chronic) Elevated erythrocyte sedimentation rate (Chronic) Long-term current use of steroids (Chronic) Dermatitis (Chronic) Tobacco use disorder (Chronic) Joint pain (Chronic) UTI (urinary tract infection) (Chronic) Muscle weakness (Chronic) Muscle tenderness (Chronic) Joint swelling (Chronic) Sneezing (Chronic) Elevated liver enzymes (Chronic) Antinuclear factor positive (Chronic) Encounter for long-term (current) use of high-risk medication (Acute) Antiphospholipid antibody syndrome (Chronic) Overlap syndrome (Chronic) Uncontrolled hypertension (Chronic) Onychomycosis due to dermatophyte (Chronic) Colon polyps (Chronic) Chronic kidney disease (Chronic) Vitamin D deficiency (Chronic) Osteopenia (Chronic) Mild ascending aorta dilation (Chronic) Blood coagulation disorder (Chronic) B12 deficiency (Chronic) Neurogenic bladder (Chronic) Seasonal allergic rhinitis (Chronic) Phlebitis and thrombophlebitis (Chronic) Secondary iritis of both eyes (Chronic) Pseudophakia (Chronic) Essential hypertension (Chronic) Chronic anticoagulation (Chronic) Chronic back pain (Chronic) Chronic depression (Chronic) Chronic serous otitis media (Chronic) GERD (gastroesophageal reflux disease) (Chronic) Labile essential hypertension (Chronic) Lower urinary tract infectious disease (Chronic) Malaise and fatigue (Chronic) Dry eyes (Chronic) Ptosis of eyelid (Chronic) After-cataract with vision obscured (Chronic) Pharyngitis (Chronic) Streptococcal sore throat (Chronic) Dehydration (Chronic) Abrasion or friction burn of shoulder without infection (Chronic) Other custodial (current) drug therapy (Chronic) Nonexudative age-related macular degeneration (Chronic) Suspected UTI (Chronic) Hereditary thrombophilia (Chronic) Weight decreased (Chronic) Abnormal weight loss (Chronic) Dysphasia (Chronic) Upper respiratory infection (Chronic) Myopia (Chronic) Presbyopia (Chronic) Gastritis (Chronic) Cough (Chronic) Hypokalemia (Chronic) Onychogryposis (Chronic) Onychomycosis (Chronic) Bilateral foot pain (Chronic) Contusion of rib (Chronic) Fall (Chronic) Dizziness (Chronic) Rib pain (Chronic) Toe pain, bilateral (Chronic) Irregular heart rate (Chronic) Supraventricular tachycardia (Chronic) Uterine fibroid (Chronic) Thrombophlebitis of left leg (Chronic) Erythema nodosum (Chronic) Venous stasis ulcer of left lower extremity (Chronic) History of EKG (Chronic 11/20/09) Stenosing tenosynovitis of finger of left hand (Acute) Osteoporosis (Chronic) Acute coronary syndrome with high troponin (Acute) Medical History Abnormal weight loss Abrasion or friction burn of shoulder without infection After-cataract with vision obscured Anemia Antiphospholipid antibody syndrome Ataxic gait B12 deficiency Bilateral foot pain Blood coagulation disorder Chronic anticoagulation Chronic back pain Chronic depression Chronic kidney disease Chronic serous otitis media Colon polyps Contusion of rib Cough Dehydration Depression Dermatitis Dizziness Dry eyes Dysphasia Easy bruising Elevated erythrocyte sedimentation rate Elevated liver enzymes Encounter for long-term (current) use of high-risk medication Erythema nodosum Essential hypertension Fall Frequent urination at night Gastritis GERD (gastroesophageal reflux disease) Headache Heartburn Hereditary thrombophilia History of DVT (deep vein thrombosis) On Coumadin since June 2006 History of EKG (11/20/09) Hypertension Hypokalemia Irregular heart rate Joint pain Joint swelling 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 Long-term current use of steroids Lower urinary tract infectious disease Malaise and fatigue Mild ascending aorta dilation Muscle tenderness Muscle weakness Myopia Neurogenic bladder Nonexudative age-related macular degeneration Onychogryposis Onychomycosis Onychomycosis due to dermatophyte Osteopenia Osteoporosis 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 therapy Overlap syndrome Pharyngitis Phlebitis and thrombophlebitis Presbyopia Pseudophakia Ptosis of eyelid Pulmonary embolism 2005 Rheumatoid arthritis Rib pain Seasonal allergic rhinitis Secondary iritis of both eyes Sicca syndrome Sinusitis Sjogrens syndrome Sneezing Frequent Stenosing tenosynovitis of finger of left hand Stiffness of right wrist, not elsewhere classified Streptococcal sore throat Supraventricular tachycardia Suspected UTI Thrombophlebitis of left leg resolved Tobacco use disorder Toe pain, bilateral Uncontrolled hypertension Upper respiratory infection Uterine fibroid UTI (urinary tract infection) Post-antibiotic Venous stasis ulcer of left lower extremity Vitamin D deficiency Weight decreased Surgical History H/O: hysterectomy 1992 History of cataract surgery (05/23/14) History of colonoscopy (10/25/15) Hx of bilateral cataract extraction Status post debridement (10/14/11) toenail Family History Father Heart failure at age 80 Mother Tuberculosis Cardiac disease at age 55 Sister Malignant neoplasm Social History marital status: education level: college occupational status: retired physical activity: walking frequency: 3-4 times per week alcohol intake frequency: does not drink substance use type: does not use MEDS/ALLERGIES Home Medications and Allergies Home Medications Medication Instructions Recorded Confirmed Type omeprazole 20 mg tablet,delayed 20 mg PO BID 10/15/15 09/15/21 History release oxybutynin chloride 5 mg tablet 5 mg PO BID tab 10/15/15 09/12/21 History atorvastatin 80 mg tablet 40 mg PO QHS 11/02/19 09/12/21 History carvedilol 6.25 mg tablet (Coreg) 6.25 mg PO BID 11/02/19 09/19/21 History docusate sodium 100 mg capsule 100 mg PO QDAY 11/02/19 09/19/21 History magnesium oxide 420 mg tablet 420 mg PO QDAY 11/02/19 09/19/21 History potassium chloride 20 mEq 20 meq PO QDAY 11/02/19 09/12/21 History tablet,extended release sucralfate 1 gram tablet 1 g PO BID tab 11/02/19 09/19/21 History prednisone 5 mg tablet 5 mg PO QDAY #90 tab 08/05/21 09/12/21 Rx acetaminophen 325 mg tablet 325 mg PO Q4H PRN 09/12/21 09/19/21 History aspirin 81 mg tablet,delayed 81 mg PO QDAY 09/12/21 09/15/21 History release calcium carbonate 300 mg (750 mg) 325 mg PO TID 09/12/21 09/19/21 History chewable tablet (Tums) cyanocobalamin (vitamin B-12) 1,000 mcg PO QDAY 09/12/21 09/19/21 History 1,000 mcg tablet (Vitamin B-12) ergocalciferol (vitamin D2) 1,250 1,250 mcg PO QMONTH 09/12/21 09/19/21 History mcg (50,000 unit) capsule ibuprofen 200 mg tablet 400 mg PO Q6H PRN 09/12/21 09/12/21 History polyethylene glycol 3350 17 gram 17 g PO QDAY 09/12/21 09/12/21 History oral powder packet (Miralax) rituximab 10 mg/mL 1,000 mg IV MONTHLY 09/12/21 09/12/21 History concentrate,intravenous (Rituxan) spironolactone 25 mg tablet 25 mg PO QDAY 09/12/21 09/15/21 History vitamin A-vitamin C-vit E-min 1 tab PO QDAY 09/12/21 09/12/21 History tablet docusate sodium 100 mg capsule 100 mg PO QDAY #60 cap 09/15/21 Rx hydrocodone 10 mg-acetaminophen 1 - 2 tab PO Q4HP PRN #75 tab 09/15/21 09/19/21 Rx 325 mg tablet warfarin 2.5 mg tablet 5 mg PO HS 09/15/21 09/19/21 History warfarin 4 mg tablet 4 mg PO SUTUTHSA@1400 09/15/21 09/19/21 History atenolol 25 mg tablet 25 mg PO QDAY 09/19/21 09/19/21 History atorvastatin 40 mg tablet 40 mg PO QHS 09/19/21 09/19/21 History azithromycin 250 mg tablet 250 mg PO QDAY 09/19/21 09/19/21 History cevimeline 30 mg capsule 1 cap PO BID 09/19/21 09/19/21 History warfarin 2.5 mg tablet See Rx Instructions .ROUTE .COMPLEX 09/19/21 09/19/21 History Allergies Allergy/AdvReac Type Severity Reaction Status Date / Time lidocaine Allergy Severe Fainting Verified 09/15/21 09:28 nitrofurantoin AdvReac Severe Nausea and Verified 09/15/21 09:25 Diarrhea EXAM Constitutional Vitals: Temp Pulse Resp BP Pulse Ox 100.6 F H 81 20 86/59 93 09/19/21 15:16 09/19/21 23:45 09/19/21 15:16 09/19/21 23:45 09/19/21 23:45 General appearance: average body habitus and no acute distress Head Head exam: Present atraumatic and normal inspection Expanded Head Exam Head exam: Absent contusion or laceration ENT ENT exam: Present mucous membranes dry Neck Neck exam: Present full ROM and normal inspection; Absent tenderness Expanded Neck Exam Neck exam: Absent anterior neck swelling Respiratory Additional comments: Air entry reduced at both bases, left > right Bilateral basilar crackles heard. no wheezing. Cardiovascular Cardiovascular exam: Present normal rate and rhythm and systolic murmur GI/Abdominal GI/Abdominal exam: Present soft and hypoactive bowel sounds; Absent tenderness Expanded GI/Abdominal Exam GI/Abdominal exam: Absent ascites Rectal Rectal exam: Present deferred Extremities Exam Extremities exam: Present normal inspection; Absent joint swelling Additional comments: Right should joint is in dressing. Back Exam Back exam: Present normal inspection; Absent CVA tenderness (L) or CVA tenderness (R) Neurological Exam Neurological exam: Present CN II-XII intact, motor sensory deficit and oriented X3 Psychiatric Psychiatric exam: Present normal affect and normal mood Skin Skin exam: Present dry; Absent diaphoretic or urticaria DATA Data Completed and Pending Labs: Labs from last 24 hours 09/19/21 09/19/21 09/19/21 17:33 16:58 16:58 WBC RBC Hgb Hct MCV MCH MCHC RDW Plt Count MPV Neut % (Auto) Lymph % (Auto) [place] % (Auto) Eos % (Auto) Baso % (Auto) Lymph # (Auto) [place] # (Auto) Eos # (Auto) Baso # (Auto) Absolute Neutrophils PT 18.4 H INR 1.5 H VBG Lactic Acid 2.1 H Sodium Potassium Chloride Carbon Dioxide Anion Gap BUN Creatinine GFR Calculation Glucose Calcium Total Bilirubin AST ALT Alkaline Phosphatase Total Protein Albumin Globulin Albumin/Globulin Ratio Procalcitonin 3.77 H POC Troponin I 09/19/21 09/19/21 09/19/21 16:58 16:58 16:58 WBC 1.2 L RBC 4.19 Hgb 13.1 Hct 39.5 MCV 94.3 MCH 31.3 MCHC 33.2 RDW 13.5 Plt Count 222 MPV 11.2 H Neut % (Auto) 82.9 H Lymph % (Auto) 12.0 L [place] % (Auto) 5.1 Eos % (Auto) 0 Baso % (Auto) 0 Lymph # (Auto) 0.14 L [place] # (Auto) 0.06 L Eos # (Auto) 0 Baso # (Auto) 0 Absolute Neutrophils 0.97 L* PT INR VBG Lactic Acid Sodium 127 L Potassium 5.1 Chloride 89 L Carbon Dioxide 25 Anion Gap 13.0 BUN 28 H Creatinine 0.7 GFR Calculation 87 Glucose 81 Calcium 8.1 L Total Bilirubin 1.7 H AST 38 H ALT 10 Alkaline Phosphatase 88 Total Protein 6.3 Albumin 3.2 Globulin 3.1 Albumin/Globulin Ratio 1.0 Procalcitonin POC Troponin I 0.01 L A/P Narrative A/P Narrative: Acute hypxoic Respiratory Failure Severe SEpsis Pneumonia, suspect aspiratin -Ternd lactate -check nasa mrsa, -on iv vanco and zosyn, if mrsa neg, d/c vanco -follow culutres -wean down oxygen as tolerated -incentive spirometery Hypercoagulable state h/o DVT h/o PE Antiphospholipid syndrome -INR is subtherapeutic -pharmacy consult -lovenox for now h/o CKD stage 2 -monitor renal function Constipation -as noted on CT -suspect from opiate induced constipation -start on senna, give enema x 1 -if does not respond, will need to start on relistor. Time Spent With Patient Time: Total time spent is greater than 50% in coordination of care (as documented) at patient's floor/unit and/or counseling patient:
[2021-09-20] MEDS: LACTATED RINGERS 1,000 ML IV SCH ×4 (00:33→23:11)
[2021-09-20] MEDS ORDERED: FLEETS ADULT ENEMA PR ONE (00:44)
[2021-09-20] MEDS: PIPERACILLIN SODIUM/TAZOBACTAM 4.5 GM in DEXTROSE 5% IN WATER 50 ML IV SCH ×4 (01:04→22:21)
[2021-09-20] MEDS ORDERED: ACETAMINOPHEN 325 MG TABLET PO ONE (02:08)
[2021-09-20 02:14] LABS: Appearance,Urine Clear (Clear); Bilirubin,Urine Negative (Negative); Color,Urine Yellow; Culture Indicated,Urine No; Glucose,Urine (UA) Negative (Negative); Ketones,Urine 15 mg/dL mg/dL (Negative); Leukocyte Esterase,Urine Negative /uL (Negative); Mucus,Urine FEW /hpf; Nitrate,Urine Negative (Negative); Specific Gravity,Urine 1.025 (1.000-1.035); Urine Blood Negative ery/mcL (Negative); Urine Hyaline Cast 6 /lph (0-2); Urine RBC < 1 /hpf (0-3); Urine Squamous Epithelial Cell 0 /hpf (0-4); Urine WBC 0 /hpf (0-4); Urobilinogen,Urine Normal
[2021-09-20] MEDS: 0.9 % SODIUM CHLORIDE 10 ML SYRINGE IV SCH ×3 (04:06→21:54)
--- NOTE | 2021-09-20 06:16 | Cat Scan Report ---
CLINICAL INFORMATION: Abdominal pain COMPARISON: None. TECHNIQUE: 0.625 mm helical slices were obtained from the mid heart through the subtrochanteric regions. Following reconstruction, 2.5 mm sagittal, coronal and axial reformatted images were processed and reviewed at bone and soft tissue windows.The exam was performed using radiation dose optimization techniques including, but not limited to, automated exposure control, adjustment of the mA and/or kV according to patient size and use of iterative reconstruction technique. FINDINGS: The lung bases show large consolidating infiltrates in both lower and right middle lobes. Small bilateral pleural effusions noted. The heart is moderately enlarged. Heavy calcific plaque present in the coronary arteries. There is also mitral valve calcification Abdominal images show the noncontrasted gallbladder and bile ducts, adrenal glands, spleen, pancreas and aorta are normal in size, configuration and attenuation without focal lesion. Mild bilateral renal atrophy appreciated: the left kidney is 8.6 cm and the right kidney is 8.2 cm. No focal renal lesion. There is no free air or adenopathy. Small amount of free fluid is noted in the true pelvis. The GI tract is atypical and difficult to evaluate without the presence of positive enteric contrast. The stomach and duodenum are moderately dilated to the transverse duodenal level. The remaining small bowel is decompressed. The colon is markedly dilated to the distal sigmoid level, however the rectum appears decompressed. The possibility of duodenal and/or distal colonic obstruction should be entertained. The patient will return for additional imaging following positive enteric contrast. Urinary bladder is moderately distended. Probable hysterectomy and oophorectomy changes. Bone windows show mild T11 and T12 compression fractures likely related to chronic Scheuermann's disease. Moderate degenerative change seen in both hips. There is a 2.8 cm subdermal soft tissue lesion posterior to the rectum which could indicate fibrosis or inflammation. IMPRESSION: 1. Atypical stool gas pattern. Please see above. The possibility of duodenal and/or distal sigmoid colon obstruction cannot be excluded on the basis of this exam which did not utilize positive enteric contrast. Positive enteric contrast will be administered. Repeat abdomen and pelvic CT with will be obtained four hours after administration of oral contrast to opacificy the GI tract. IV contrast is not necessary 2. Mild bilateral renal atrophy. 3. Large consolidated infiltrates in both lower and right middle lobes with small effusions. Consider aspiration or infection. 4. Moderate cardiomegaly with heavy calcific plaque in the coronary arteries. 5. 3 cm subdermal lesion inferior to the coccyx which extends to the posterior wall of the rectum. This could indicate fibrosis, pilonidal cyst or a region of inflammation please correlate with physical exam findings. Interpreted and Authenticated by: Prateek Ngo 09/20/21
[2021-09-20] MEDS ORDERED: VANCOMYCIN PER PHARMACY IV SCH (07:45)
[2021-09-20 07:55] LABS: Basophils # (Auto) 0.02 K/mcL (0.00-0.30); Basophils % (Auto) 0.6 % (0.0-2.0); Eosinophils # (Auto) 0 K/mcL (0.00-0.70); Eosinophils % (Auto) 0 % (0.0-7.0); Hematocrit 34.7 % (34.1-44.9); Hemoglobin 11.1 g/dL (11.2-15.7); Lymphocytes # (Auto) 0.29 K/mcL (1.50-4.80); Lymphocytes % (Auto) 9.4 % (15.5-49.0); Mean Cell Volume 94.3 fL (80.0-100.0); Monocytes % (Auto) 6.5 % (1.0-12.0); Neutrophils % (Auto) 83.5 % (38.0-78.0); Platelet Count 161 K/mcL (140-440); RBC 3.68 M/mcL (3.59-5.38); Red Cell Distribution Width 13.7 % (11.5-14.5); WBC 3.1 K/mcL (4.5-11.0)
[2021-09-20] MEDS ORDERED: predniSONE 5 MG TABLET PO SCH (08:00)
[2021-09-20 08:03] LABS: Prothrombin Time 23.1 sec (11.9-14.5)
[2021-09-20 08:09] LABS: ALT/SGPT 8 U/L (<40); AST/SGOT 30 U/L (<32); Albumin 2.6 gm/dL (3.2-5.2); Alkaline Phosphatase 63 U/L (39-117); Bilirubin,Direct 0.7 mg/dL (<0.3); Bilirubin,Total 1.5 mg/dL (0.1-1.0); Blood Urea Nitrogen 27 mg/dL (8-23); Calcium 7.4 mg/dL (8.6-10.4); Carbon Dioxide 25 mmol/L (22-30); Chloride 95 mmol/L (96-108); Globulin 2.5 gm/dL (2.2-3.7); Glomerular Filtration Rate 91; Glucose 51 mg/dL (70-105); Lactate Dehydrogenase 233 U/L (135-225); Phosphorous 3.6 mg/dL (2.5-4.5); Triglycerides 76 mg/dL (<150); Uric Acid 4.9 mg/dL (2.5-8.0)
[2021-09-20] MEDS: ONDANSETRON 4 MG/2 ML VIAL IV PRN ×2 (08:24→13:59)
[2021-09-20] MEDS ORDERED: ENOXAPARIN 40 MG/0.4 ML SYRINGE SQ SCH (09:00)
[2021-09-20] MEDS ORDERED: VANCOMYCIN 750 MG in 0.9 % SODIUM CHLORIDE 250 ML IV SCH (09:00)
[2021-09-20] MEDS ORDERED: ENOXAPARIN 100 MG/ML SYRINGE SQ SCH (09:00)
--- NOTE | 2021-09-20 10:16 | Internal Med Progress Note ---
SUBJECTIVE Subjective Patient information: Note initiated : 09/20/21 at 10:13 am Service Date, if different from initiated Date: [] Patient: Sima Gómez a 70 y/o F admitted on 09/19/21 for SOB, Abdominal Pain. Chief Complaint: [] Interval history: Ms. Gómez is a 70 year old F With history of inflammatory arthritis, history of DVT antiphospholipid syndrome, on Coumadin for anticoagulation, presents to the emergency room today for evaluation of shortness of breath. The patient had a right shoulder open reduction and internal fixation done a few days ago at this facility. Subsequently she was discharged to a custodial. Over the last 2 days in the custodial the patient has reported progressive shortness of breath, this is associated with cough, subjective sensation of fever, as well as some nausea. The patient does not recollect when her last bowel movement was. Given that she was noted to be hypoxic at the SNF, associated with shortness of breath she was sent to the emergency room for further evaluation. On arrival to the emergency room patient was noted to be hypoxic in the 80s, requiring 4 to 5 L of oxygen to maintain oxygen saturation more than 90%. She was mildly tachycardic and had soft blood pressures. Chest x-ray showed bilateral pneumonia, CT scan of the abdomen pelvis was done which confirms a pneumonia, noted significant stool retention but no acute intra-abdominal pathology, no obstruction. Lab work showed leukopenia, elevated procalcitonin. Patient is going to be admitted to the hospital for management of respiratory failure and pneumonia. 09/20 patient seen examined at bed side Oxygen levels stable, oxyge needs are trending down now on 2 L Still has nausea, no bm since yesterday despite enema plan to get CT abdomen pelvis with oral contrast Pertinent ROS: Denies headache, dizziness Denies chest pain, palpitations Improving shortness of breath Denies abdominal pain, nausea or vomiting. Constitutional Vitals: Vital Signs Temp Pulse Resp BP Pulse Ox 98.4 F 82 18 104/71 92 09/20/21 08:01 09/20/21 09:01 09/20/21 09:01 09/20/21 09:01 09/20/21 09:01 Period Temp Pulse Resp BP Sys/[place] Pulse Ox Last 24 Hr 97.7 F-100.6 F 72-93 86-153/54-88 84-100 Intake and Output 09/19/21 09/20/21 09/20/21 21:59 05:59 13:59 Intake Total 1000 800 50 Output Total 400 500 Balance 1000 400 -450 Weight 58.967 kg 55.293 kg Intake & Output: Intake & Output 09/19/21 09/20/21 09/20/21 21:59 05:59 13:59 Intake Total 1000 800 50 Output Total 400 500 Balance 1000 400 -450 Weight 58.967 kg 55.293 kg Intake: IV 1000 600 50 Sodium Chloride 0.9% 1,000 ml @ 1000 Wide Open IV BOLUS ONE Rx#: [id number] Zosyn 3.375 gm In Dextrose 5% 50 in Water 50 ml @ 100 mls/hr IV ONCE ONE Rx#:[id number] Zosyn 4.5 gm In Dextrose 5% in 50 50 Water 50 ml @ 100 mls/hr IV Q8H SHELBY Rx#:[id number] Vancomycin 1,500 mg In Sodium 500 Chloride 0.9% 500 ml @ 333.3 mls/hr IV ONCE ONE Rx#: [id number] Oral 200 Output: Urine Catheter Amount 400 Void Amount 500 Other: Urine Appearance Clear Clear Uretheral (Weber) Clear Clear Urine Color Dark Shanae Bright Yellow Uretheral (Weber) Dark Yellow Dark Yellow Urine Odor Strong Normal Uretheral (Weber) Normal Normal # Emeses 2 Additional findings Additional findings: Constitutional; Afebrile, cooperative, alert, not in distress. Eyes- No icterus, , No periorbital swelling Ears- Ext ear normal, hearing normal to conversation. Neck- Midline trachea, supple Respiratory system: Air Entry equal on both sides, peristent bibasilar crackles CVS- Rate rhythm regular, S1,S2 heard, no gallop, no rub. Abdomen- Soft nontender abdomen, no organomegaly, no tenderness, no guarding or rigidity, [employer]- AOOx3, moving all extremities, no gross focal deficit noted. OBJ DATA Labs CBC & Chem 7: 09/20/21 06:21 09/20/21 06:21 Labs: Abnormal Lab Results 09/20/21 09/20/21 09/20/21 06:21 06:21 05:15 WBC 3.1 L Hgb 11.1 L MPV 11.0 H Neut % (Auto) 83.5 H Lymph % (Auto) 9.4 L Lymph # (Auto) 0.29 L Gregg # (Auto) Absolute Neutrophils PT 23.1 H INR 2.0 H VBG Lactic Acid Sodium 131 L Chloride 95 L BUN 27 H Glucose 51 L Calcium 7.4 L Total Bilirubin 1.5 H Direct Bilirubin 0.7 H AST Lactate Dehydrogenase 233 H Total Protein 5.1 L Albumin 2.6 L Procalcitonin Urine Protein Urine Ketones Hyaline Casts Urine Mucus POC Troponin I 09/19/21 09/19/21 09/19/21 17:33 16:59 16:58 WBC Hgb MPV Neut % (Auto) Lymph % (Auto) Lymph # (Auto) Gregg # (Auto) Absolute Neutrophils PT 18.4 H INR 1.5 H VBG Lactic Acid 2.1 H Sodium Chloride BUN Glucose Calcium Total Bilirubin Direct Bilirubin AST Lactate Dehydrogenase Total Protein Albumin Procalcitonin Urine Protein 30 mg/dl A Urine Ketones 15 mg/dl A Hyaline Casts 6 H Urine Mucus Few A POC Troponin I 09/19/21 09/19/21 09/19/21 16:58 16:58 16:58 WBC Hgb MPV Neut % (Auto) Lymph % (Auto) Lymph # (Auto) Gregg # (Auto) Absolute Neutrophils PT INR VBG Lactic Acid Sodium 127 L Chloride 89 L BUN 28 H Glucose Calcium 8.1 L Total Bilirubin 1.7 H Direct Bilirubin AST 38 H Lactate Dehydrogenase Total Protein Albumin Procalcitonin 3.77 H Urine Protein Urine Ketones Hyaline Casts Urine Mucus POC Troponin I 0.01 L 09/19/21 16:58 WBC 1.2 L Hgb MPV 11.2 H Neut % (Auto) 82.9 H Lymph % (Auto) 12.0 L Lymph # (Auto) 0.14 L Gregg # (Auto) 0.06 L Absolute Neutrophils 0.97 L* PT INR VBG Lactic Acid Sodium Chloride BUN Glucose Calcium Total Bilirubin Direct Bilirubin AST Lactate Dehydrogenase Total Protein Albumin Procalcitonin Urine Protein Urine Ketones Hyaline Casts Urine Mucus POC Troponin I Meds: Medications Acetaminophen (Acetaminophen 325 Mg Tablet) 650 mg PO Q4-6HP PRN; Protocol PRN Reason: Per Pain Protocol/Fever > 101 Albuterol/Ipratropium (Ipratropium/Albuterol 3 Ml Ampul.Neb) 3 ml NEB Q4HRT PRN PRN Reason: shortness of breath Atorvastatin Calcium (Atorvastatin 40 Mg Tablet) 40 mg PO QHS [facility] Piperacillin Sod/Tazobactam (Sod 4.5 gm/ Dextrose) 50 mls @ 100 mls/hr IV Q8H [facility]; Protocol Last Infusion: 09/20/21 08:50 Dose: Infused Documented by: Lactated Ringer's (Lactated Ringers) 1,000 mls @ 75 mls/hr IV .[id number] [facility] Last Admin: 09/20/21 00:33 Dose: 75 mls/hr Documented by: Vancomycin HCl 750 mg/ Sodium (Chloride) 250 mls @ 250 mls/hr IV Q12H [facility] Last Admin: 09/20/21 09:09 Dose: 250 mls/hr Documented by: Lorazepam (Lorazepam 2 Mg/Ml Vial) 0.5 mg IV Q2HP PRN PRN Reason: ANXIETY/SEDATION Magnesium Hydroxide (Magnesium Hydroxide 30 Ml Oral.Susp) 30 ml PO DAILYP PRN PRN Reason: Constipation Naloxone HCl (Naloxone Hcl 0.4 Mg/Ml Vial) 0.1 mg IV Q2MIN PRN PRN Reason: Opiate Reversal Nitroglycerin (Nitroglycerin 0.4 Mg Tab.Subl) 0.4 mg SL Q5M PRN PRN Reason: Chest Pain Ondansetron HCl (Ondansetron 4 Mg/2 Ml Vial) 4 mg IV Q4-6HP PRN; Protocol PRN Reason: Nausea And Vomiting Last Admin: 09/20/21 08:24 Dose: 4 mg Documented by: Prednisone (Prednisone 5 Mg Tablet) 5 mg PO [facility] Last Admin: 09/20/21 08:17 Dose: 5 mg Documented by: Promethazine HCl (Promethazine 25 Mg/Ml Vial) 12.5 mg IV Q4-6HP PRN; Protocol PRN Reason: Nausea And Vomiting Senna (Sennosides 1 Tablet) 2 tab PO [facility] Sodium Chloride (0.9 % Sodium Chloride 10 Ml Syringe) 10 ml IV Q8 [facility] Last Admin: 09/20/21 04:06 Dose: Not Given Documented by: Vancomycin HCl (Vancomycin Per Pharmacy) 1 order IV [facility] [place]; Protocol Warfarin Sodium (Warfarin Per Pharmacy) 1 order PO DAILY@1400 [facility] Imaging and cardiology CT scan - abdomen: Additional comments: Report reviewed A/P Narrative A/P Narrative: A/P Narrative: Acute hypxoic Respiratory Failure Severe Sepsis Pneumonia, suspect aspiration -Ternd lactate, unfortunately lab was ordered for next day, will order stat now. -clinically sepsis syndrome is improving. -check nasa mrsa, -on iv vanco and zosyn, if mrsa neg, d/c vanco -follow cultures NGTD -wean down oxygen as tolerated, prsently on 2 L -incentive spirometery Hypoglycemia -glucose 51 this AM -recheck if low start on dextrose fluids Hypercoagulable state h/o DVT h/o PE Antiphospholipid syndrome -INR is therapeutic now -pharmacy consult -lovenox to be stopped h/o CKD stage 2 -monitor renal function Constipation -as noted on CT -suspect from opiate induced constipation, will get CT scan with oral c ontrast to r/o any obstructive process -if neg, will start on relistor Hyponatremia, present on admissin -improving, monitor. Time Spent With Patient Time: Total time spent is greater than 50% in coordination of care (as documented) at patient's floor/unit and/or counseling patient: Total time spent with greater than 50% in coordination of care (as documented) at patient's floor/unit and/or counseling patient:: Greater than 35 minutes QUALITY VTE Deep Vein Thrombosis/Pulmonary Embolism Present on Admission: No
[2021-09-20] MEDS ORDERED: DEXTROSE 50% 50 ML SYRINGE IV ONE ×2 (10:37→10:54)
[2021-09-20] MEDS ORDERED: IOPAMIDOL 100 ML BOTTLE IV ONE (13:30)
[2021-09-20] MEDS ORDERED: WARFARIN 2 MG TABLET PO SCH (14:00)
--- NOTE | 2021-09-20 16:07 | Cat Scan Report ---
CLINICAL INFORMATION: Possible proximal small bowel and distal colonic obstruction on the basis of noncontrast exam. COMPARISON: None. TECHNIQUE: Following positive enteric contrast 0.625 mm helical slices were obtained from the mid heart through the subtrochanteric regions. Following reconstruction, 2.5 mm sagittal, coronal and axial reformatted images were processed and reviewed at bone and soft tissue windows.The exam was performed using radiation dose optimization techniques including, but not limited to, automated exposure control, adjustment of the mA and/or kV according to patient size and use of iterative reconstruction technique. FINDINGS: The lung bases show large consolidating infiltrates in both lower and right middle lobes. Small bilateral pleural effusions noted. The heart is moderately enlarged. Heavy calcific plaque present in the coronary arteries. There is also mitral valve calcification Abdominal images show the noncontrasted gallbladder and bile ducts, adrenal glands, spleen, pancreas and aorta are normal in size, configuration and attenuation without focal lesion. Mild bilateral renal atrophy appreciated: the left kidney is 8.6 cm and the right kidney is 8.2 cm. No focal renal lesion. There is no free air or adenopathy. Small amount of free fluid is noted in the true pelvis. Pelvic images now show Weber catheter decompressing the urinary bladder. Hysterectomy/oophorectomy changes noted. Following enteric contrast, the GI tract is better visualized. The stomach and duodenum are dilated to the possible transverse duodenal segment. There is narrowing of the transverse duodenum as it crosses between the aorta and the SMA compatible with SMA syndrome. The small bowel distal to the crossing is relatively decompressed. The colon appears symmetrically dilated with moderate stool compatible with ileus-no evidence of colonic obstruction. IMPRESSION: 1. Partial obstruction of the transverse duodenum as it crosses between the SMA and the abdominal aorta (SMA syndrome). The colon shows symmetric dilatation of bowel compatible with ileus. No evidence of distal colonic obstruction. 2. Mild bilateral renal atrophy. 3. Large consolidative infiltrates of both lower right middle lobe with small effusions. Consider aspiration or infection. No change Interpreted and Authenticated by: Prateek Ngo 09/20/21
--- NOTE | 2021-09-20 18:25 | General Surgery Consult Note ---
HPI Data of Consult Patient: new to practice Consult date: 09/20/21 Requesting physician: Alfonso Carpio Primary Care Provider: Rhona Skinner Consult Narrative History of present illness: 70-year-old female who was admitted primarily for bilateral pneumonia with hyp oxemia. She was noted to have a distended abdomen and x-rays of the chest and abdomen revealed massively dilated colon extending down to the distal rectum. She has a large fecal volume in the right colon descending colon and sigmoid. The rectum itself appears to be decompressed. History confirms that the patient has not had a bowel movement for over 10 days. She was hospitalized on 15 September with right shoulder fracture and rotator cuff tear. She had ORIF and repair of the rotator cuff. She was transferred to nursing care facility. She has been on oral narcotics for pain control. She has a very long history of inflammatory arthritis and has been intermittently on narcotic analgesics. I have not quite sure how long she has been using narcotics however her intestinal films are compatible with chronic colonic pseudoobstruction with secondary fecal impaction due to hypOperistaltic activity. I discussed treatment plans with today she complains of diffuse tenderness with moderate to severe distention family members and treatment has been instituted. cc:: CC: Alfonso Carpio Review of Systems ROS unobtainable: due to mental status (Patient complains of diffuse pain in her right shoulder but also in her other joints and back. She also has diffuse abdominal pain and she gives a history of having nausea with vomiting which may have contributed to her pneumonia.) PFSH PFSH All Active Problems (Updated 09/20/21 @ 18:36 by Gilles Bond MD) Slow transit constipation (Acute) Primary chronic pseudo-obstruction of colon (Acute) Bilateral pneumonia (Acute) Hypoxia (Acute) Dyspnea (Acute) Stiffness of right wrist, not elsewhere classified (Chronic) Rheumatoid arthritis (Acute) Sjogrens syndrome (Acute) Hypertension (Chronic) Ataxic gait (Chronic) Pulmonary embolism (Chronic) History of DVT (deep vein thrombosis) (Chronic) Anemia (Chronic) Hx of bilateral cataract extraction (Chronic) Heartburn (Chronic) Headache (Chronic) Depression (Chronic) Sinusitis (Chronic) Frequent urination at night (Chronic) Easy bruising (Chronic) 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) Sicca syndrome (Chronic) Elevated erythrocyte sedimentation rate (Chronic) Long-term current use of steroids (Chronic) Dermatitis (Chronic) Tobacco use disorder (Chronic) Joint pain (Chronic) UTI (urinary tract infection) (Chronic) Muscle weakness (Chronic) Muscle tenderness (Chronic) Joint swelling (Chronic) Sneezing (Chronic) Elevated liver enzymes (Chronic) Antinuclear factor positive (Chronic) Encounter for long-term (current) use of high-risk medication (Acute) Antiphospholipid antibody syndrome (Chronic) Overlap syndrome (Chronic) Uncontrolled hypertension (Chronic) Onychomycosis due to dermatophyte (Chronic) Colon polyps (Chronic) Chronic kidney disease (Chronic) Vitamin D deficiency (Chronic) Osteopenia (Chronic) Mild ascending aorta dilation (Chronic) Blood coagulation disorder (Chronic) B12 deficiency (Chronic) Neurogenic bladder (Chronic) Seasonal allergic rhinitis (Chronic) Phlebitis and thrombophlebitis (Chronic) Secondary iritis of both eyes (Chronic) Pseudophakia (Chronic) Essential hypertension (Chronic) Chronic anticoagulation (Chronic) Chronic back pain (Chronic) Chronic depression (Chronic) Chronic serous otitis media (Chronic) GERD (gastroesophageal reflux disease) (Chronic) Labile essential hypertension (Chronic) Lower urinary tract infectious disease (Chronic) Malaise and fatigue (Chronic) Dry eyes (Chronic) Ptosis of eyelid (Chronic) After-cataract with vision obscured (Chronic) Pharyngitis (Chronic) Streptococcal sore throat (Chronic) Dehydration (Chronic) Abrasion or friction burn of shoulder without infection (Chronic) Other group home (current) drug therapy (Chronic) Nonexudative age-related macular degeneration (Chronic) Suspected UTI (Chronic) Hereditary thrombophilia (Chronic) Weight decreased (Chronic) Abnormal weight loss (Chronic) Dysphasia (Chronic) Upper respiratory infection (Chronic) Myopia (Chronic) Presbyopia (Chronic) Gastritis (Chronic) Cough (Chronic) Hypokalemia (Chronic) Onychogryposis (Chronic) Onychomycosis (Chronic) Bilateral foot pain (Chronic) Contusion of rib (Chronic) Fall (Chronic) Dizziness (Chronic) Rib pain (Chronic) Toe pain, bilateral (Chronic) Irregular heart rate (Chronic) Supraventricular tachycardia (Chronic) Uterine fibroid (Chronic) Thrombophlebitis of left leg (Chronic) Erythema nodosum (Chronic) Venous stasis ulcer of left lower extremity (Chronic) History of EKG (Chronic 11/20/09) Stenosing tenosynovitis of finger of left hand (Acute) Osteoporosis (Chronic) Acute coronary syndrome with high troponin (Acute) Medical History (Updated 09/20/21 @ 18:36 by Gilles Bond MD) Abnormal weight loss Abrasion or friction burn of shoulder without infection After-cataract with vision obscured Anemia Antiphospholipid antibody syndrome Ataxic gait B12 deficiency Bilateral foot pain Blood coagulation disorder Chronic anticoagulation Chronic back pain Chronic depression Chronic kidney disease Chronic serous otitis media Colon polyps Contusion of rib Cough Dehydration Depression Dermatitis Dizziness Dry eyes Dysphasia Easy bruising Elevated erythrocyte sedimentation rate Elevated liver enzymes Encounter for long-term (current) use of high-risk medication Erythema nodosum Essential hypertension Fall Frequent urination at night Gastritis GERD (gastroesophageal reflux disease) Headache Heartburn Hereditary thrombophilia History of DVT (deep vein thrombosis) On Coumadin since June 2006 History of EKG (11/20/09) Hypertension Hypokalemia Irregular heart rate Joint pain Joint swelling Labile essential hypertension correction use of drug Long-term current use of steroids Lower urinary tract infectious disease Malaise and fatigue Mild ascending aorta dilation Muscle tenderness Muscle weakness Myopia Neurogenic bladder Nonexudative age-related macular degeneration Onychogryposis Onychomycosis Onychomycosis due to dermatophyte Osteopenia Osteoporosis 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 Overlap syndrome Pharyngitis Phlebitis and thrombophlebitis Presbyopia Pseudophakia Ptosis of eyelid Pulmonary embolism 2005 Rheumatoid arthritis Rib pain Seasonal allergic rhinitis Secondary iritis of both eyes Sicca syndrome Sinusitis Sjogrens syndrome Sneezing Frequent Stenosing tenosynovitis of finger of left hand Stiffness of right wrist, not elsewhere classified Streptococcal sore throat Supraventricular tachycardia Suspected UTI Thrombophlebitis of left leg resolved Tobacco use disorder Toe pain, bilateral Uncontrolled hypertension Upper respiratory infection Uterine fibroid UTI (urinary tract infection) Post-antibiotic Venous stasis ulcer of left lower extremity Vitamin D deficiency Weight decreased Surgical History H/O: hysterectomy 1992 History of cataract surgery (05/23/14) History of colonoscopy (10/25/15) Hx of bilateral cataract extraction Status post debridement (10/14/11) toenail Family History Father Heart failure at age 80 Mother Tuberculosis Cardiac disease at age 55 Sister Malignant neoplasm Social History marital status: education level: college occupational status: retired physical activity: walking frequency: 3-4 times per week alcohol intake frequency: does not drink substance use type: does not use MEDS/ALLERGIES Home Medications and Allergies Home Medications Medication Instructions Recorded Confirmed Type omeprazole 20 mg tablet,delayed 20 mg PO BID 10/15/15 09/20/21 History release oxybutynin chloride 5 mg tablet 5 mg PO BID tab 10/15/15 09/20/21 History carvedilol 6.25 mg tablet (Coreg) 6.25 mg PO BID 11/02/19 09/20/21 History docusate sodium 100 mg capsule 100 mg PO QDAY 11/02/19 09/20/21 History magnesium oxide 420 mg tablet 400 mg PO QDAY 11/02/19 09/20/21 History potassium chloride 20 mEq 20 meq PO QDAY 11/02/19 09/20/21 History tablet,extended release sucralfate 1 gram tablet 1 g PO BID tab 11/02/19 09/20/21 History prednisone 5 mg tablet 5 mg PO QDAY #90 tab 08/05/21 09/20/21 Rx acetaminophen 325 mg tablet 325 mg PO Q4H PRN 09/12/21 09/20/21 History calcium carbonate 300 mg (750 mg) 1,000 mg PO TID 09/12/21 09/20/21 History chewable tablet (Tums) cyanocobalamin (vitamin B-12) 1,000 mcg PO QDAY 09/12/21 09/20/21 History 1,000 mcg tablet (Vitamin B-12) ergocalciferol (vitamin D2) 1,250 1,250 mcg PO WEEKLY 09/12/21 09/20/21 History mcg (50,000 unit) capsule polyethylene glycol 3350 17 gram 17 g PO QDAY 09/12/21 09/20/21 History oral powder packet (Miralax) rituximab 10 mg/mL 1,000 mg IV MONTHLY 09/12/21 09/12/21 History concentrate,intravenous (Rituxan) spironolactone 25 mg tablet 25 mg PO QDAY 09/12/21 09/20/21 History vitamin A-vitamin C-vit E-min 1 tab PO QDAY 09/12/21 09/20/21 History tablet hydrocodone 10 mg-acetaminophen 1 - 2 tab PO Q4HP PRN #75 tab 09/15/21 09/20/21 Rx 325 mg tablet warfarin 2.5 mg tablet See Rx Instructions .ROUTE .COMPLEX 09/15/21 09/20/21 History warfarin 4 mg tablet See Rx Instructions .ROUTE .COMPLEX 09/15/21 09/20/21 History atenolol 25 mg tablet 25 mg PO QDAY 09/19/21 09/20/21 History atorvastatin 40 mg tablet 40 mg PO QHS 09/19/21 09/20/21 History azithromycin 250 mg tablet 250 mg PO QDAY 09/19/21 09/20/21 History cevimeline 30 mg capsule 1 cap PO BID 09/19/21 09/20/21 History ipratropium 0.5 mg-albuterol 3 mg 3 ml INHALATION Q6H PRN 09/20/21 09/20/21 History (2.5 mg base)/3 mL nebulization soln Allergies Allergy/AdvReac Type Severity Reaction Status Date / Time lidocaine Allergy Severe Fainting Verified 09/20/21 02:45 nitrofurantoin AdvReac Severe Nausea and Verified 09/20/21 02:45 Diarrhea Physical Examination Vital Signs Vital signs: Temp Pulse Resp BP Pulse Ox 98.2 F 80 22 104/61 96 09/20/21 16:01 09/20/21 18:01 09/20/21 18:01 09/20/21 18:01 09/20/21 18:01 General physical appearance General physical exam: moderate distress, moderate pain, cachectic and chronica lly ill Eyes Eye exam: PERRL and normal ocular movement ENT ENT exam: decreased hearing Head Head exam IM: Present atraumatic, normal inspection and normocephalic Neck Neck exam: no masses, no bruits, trachea midline, no lymphadenopathy and no venous distension Cardiovascular Cardiovascular exam IM: Present normal rate and rhythm, RRR, +S1 and +S2; Absent JVD Respiratory Respiratory exam: other (Bilateral hypoventilation with significant decreased breath sounds in both lung marcial even extending up to the apex. Deep breathing is hampered by pain.) Abdomen Abdomen: Present tender, guarding and distended (Abdomen is diffusely distended and tender; she has hypoactive bowel sounds; there are some scattered gurgling sounds in the mid abdomen) Integumentary Integumentary: Present no rash, no growths and no abnormal pigmentation Neurologic Neurologic: Present other (Patient appears to be immobile and bedridden at this time. She does have mobility of her left upper extremity and her legs) Psychiatric Psychiatric: Present oriented to person and other (Mental status altered by narcotic analgesics) Results Labs Result diagrams: 09/20/21 06:21 09/20/21 06:21 Labs: Abnormal lab results 09/19/21 09/19/21 09/19/21 Range/Units 16:58 16:58 16:58 WBC (4.5-11.0) K/mcL Hgb (11.2-15.7) g/dL MPV (7.4-10.4) fL Neut % (Auto) 82.9 H (38.0-78.0) % Lymph % (Auto) (15.5-49.0) % Lymph # (Auto) (1.50-4.80) K/mcL PT 18.4 H (11.9-14.5) sec INR 1.5 H (0.9-1.1) Sodium (133-145) mmol/L Chloride (96-108) mmol/L BUN (8-23) mg/dL Glucose (70-105) mg/dL Calcium (8.6-10.4) mg/dL Total Bilirubin (0.1-1.0) mg/dL Direct Bilirubin (<0.3) mg/dL Lactate Dehydrogenase (135-225) U/L Total Protein (5.9-8.4) gm/dL Albumin (3.2-5.2) gm/dL Procalcitonin 3.77 H (<0.10) ng/mL Urine Protein (Negative) mg/dL Urine Ketones (Negative) mg/dL Hyaline Casts (0-2) /lph Urine Mucus (None) /hpf 09/19/21 09/20/21 09/20/21 Range/Units 16:59 05:15 06:21 WBC 3.1 L (4.5-11.0) K/mcL Hgb 11.1 L (11.2-15.7) g/dL MPV 11.0 H (7.4-10.4) fL Neut % (Auto) 83.5 H (38.0-78.0) % Lymph % (Auto) 9.4 L (15.5-49.0) % Lymph # (Auto) 0.29 L (1.50-4.80) K/mcL PT 23.1 H (11.9-14.5) sec INR 2.0 H (0.9-1.1) Sodium (133-145) mmol/L Chloride (96-108) mmol/L BUN (8-23) mg/dL Glucose (70-105) mg/dL Calcium (8.6-10.4) mg/dL Total Bilirubin (0.1-1.0) mg/dL Direct Bilirubin (<0.3) mg/dL Lactate Dehydrogenase (135-225) U/L Total Protein (5.9-8.4) gm/dL Albumin (3.2-5.2) gm/dL Procalcitonin (<0.10) ng/mL Urine Protein 30 mg/dl A (Negative) mg/dL Urine Ketones 15 mg/dl A (Negative) mg/dL Hyaline Casts 6 H (0-2) /lph Urine Mucus Few A (None) /hpf 09/20/21 Range/Units 06:21 WBC (4.5-11.0) K/mcL Hgb (11.2-15.7) g/dL MPV (7.4-10.4) fL Neut % (Auto) (38.0-78.0) % Lymph % (Auto) (15.5-49.0) % Lymph # (Auto) (1.50-4.80) K/mcL PT (11.9-14.5) sec INR (0.9-1.1) Sodium 131 L (133-145) mmol/L Chloride 95 L (96-108) mmol/L BUN 27 H (8-23) mg/dL Glucose 51 L (70-105) mg/dL Calcium 7.4 L (8.6-10.4) mg/dL Total Bilirubin 1.5 H (0.1-1.0) mg/dL Direct Bilirubin 0.7 H (<0.3) mg/dL Lactate Dehydrogenase 233 H (135-225) U/L Total Protein 5.1 L (5.9-8.4) gm/dL Albumin 2.6 L (3.2-5.2) gm/dL Procalcitonin (<0.10) ng/mL Urine Protein (Negative) mg/dL Urine Ketones (Negative) mg/dL Hyaline Casts (0-2) /lph Urine Mucus (None) /hpf Diabetes panel 09/20/21 Range/Units 06:21 Sodium 131 L (133-145) mmol/L Potassium 4.5 (3.3-5.1) mmol/L Chloride 95 L (96-108) mmol/L Carbon Dioxide 25 (22-30) mmol/L BUN 27 H (8-23) mg/dL Creatinine 0.6 (0.6-1.1) mg/dL Glucose 51 L (70-105) mg/dL Calcium 7.4 L (8.6-10.4) mg/dL AST 30 (<32) U/L ALT 8 (<40) U/L Alkaline Phosphatase 63 (39-117) U/L Total Protein 5.1 L (5.9-8.4) gm/dL Albumin 2.6 L (3.2-5.2) gm/dL Triglycerides 76 (<150) mg/dL Calcium panel 09/20/21 Range/Units 06:21 Calcium 7.4 L (8.6-10.4) mg/dL Phosphorus 3.6 (2.5-4.5) mg/dL Albumin 2.6 L (3.2-5.2) gm/dL Pituitary panel 09/20/21 Range/Units 06:21 Sodium 131 L (133-145) mmol/L Potassium 4.5 (3.3-5.1) mmol/L Chloride 95 L (96-108) mmol/L Carbon Dioxide 25 (22-30) mmol/L BUN 27 H (8-23) mg/dL Creatinine 0.6 (0.6-1.1) mg/dL Glucose 51 L (70-105) mg/dL Calcium 7.4 L (8.6-10.4) mg/dL Adrenal panel 09/20/21 Range/Units 06:21 Sodium 131 L (133-145) mmol/L Potassium 4.5 (3.3-5.1) mmol/L Chloride 95 L (96-108) mmol/L Carbon Dioxide 25 (22-30) mmol/L BUN 27 H (8-23) mg/dL Creatinine 0.6 (0.6-1.1) mg/dL Glucose 51 L (70-105) mg/dL Calcium 7.4 L (8.6-10.4) mg/dL Total Bilirubin 1.5 H (0.1-1.0) mg/dL AST 30 (<32) U/L ALT 8 (<40) U/L Alkaline Phosphatase 63 (39-117) U/L Total Protein 5.1 L (5.9-8.4) gm/dL Albumin 2.6 L (3.2-5.2) gm/dL All other labs normal. A/P Assessment and plan (1) Bilateral pneumonia: Status: Acute (2) Primary chronic pseudo-obstruction of colon: Status: Acute (3) Slow transit constipation: Status: Acute (4) Sjogrens syndrome: Status: Acute Qualifiers: Sjogren's organ involvement: unspecified organ involvement Qualified Code(s): M35.00 - Sicca syndrome, unspecified (5) Depression: Status: Chronic Narrative A/P Narrative: Milk of molasses enema tonight Reglan 10 mg IV every 6 hours Relistor 12 mg subcu daily Follow-up abdominal x-rays in the morning and if the stool: Is clear we will start pyridostigmine subcu every 6 hours for better colonic stimulation If there is any concern about distal rectosigmoid pathology and low-pressure single contrast Gastrografin enema will be performed before starting the pyridostigmine. Time Spent With Patient Time: Total time spent is greater than 50% in coordination of care (as documented) at patient's floor/unit and/or counseling patient:
[2021-09-20] MEDS: METOCLOPRAMIDE 10 MG/2 ML VIAL IV SCH (19:04)
[2021-09-20] MEDS ORDERED: METOCLOPRAMIDE 10 MG/2 ML VIAL ONE (19:08)
[2021-09-20] MEDS ORDERED: ATORVASTATIN 40 MG TABLET PO SCH (21:00)
[2021-09-20] MEDS: ACETAMINOPHEN 650 MG/65 ML BAG IV PRN (21:34)
[2021-09-20] MEDS ORDERED: ACETAMINOPHEN 1,000 MG/100 ML BAG IV ONE (21:37)
[2021-09-20] MEDS: METHYLNALTREXONE BROMIDE 12 MG/0.6 ML SYRINGE SQ SCH (21:45)
[2021-09-21] MEDS: METOCLOPRAMIDE 10 MG/2 ML VIAL IV SCH ×4 (00:31→21:19)
[2021-09-21] MEDS: LACTATED RINGERS 1,000 ML IV SCH ×2 (02:45→04:35)
--- NOTE | 2021-09-21 03:01 | XRay Report ---
CLINICAL INFORMATION: NG tube placement COMPARISON: None. FINDINGS: NG tube overlies the gastric body. Moderate distention of the colon appreciated. Stomach and small bowel appear relatively decompressed. Moderate bibasilar consolidated infiltrates noted as before. There is no free air, soft tissue mass, organomegaly or pathologic calcification. IMPRESSION: NG tube overlying the gastric body. Moderate colonic distention compatible with ileus. Moderate bibasilar infiltrates Interpreted and Authenticated by: Prateek Ngo 09/21/21
[2021-09-21] MEDS: 0.9 % SODIUM CHLORIDE 10 ML SYRINGE IV SCH ×3 (04:36→21:00)
[2021-09-21] MEDS: PIPERACILLIN SODIUM/TAZOBACTAM 4.5 GM in DEXTROSE 5% IN WATER 50 ML IV SCH ×3 (06:05→21:35)
--- NOTE | 2021-09-21 06:26 | Internal Med Progress Note ---
SUBJECTIVE Subjective Patient information: Note initiated : 09/21/21 at 6:25 am Service Date, if different from initiated Date: [] Patient: Sima Gómez a 70 y/o F admitted on 09/19/21 for SOB, Abdominal Pain. Chief Complaint: [] Interval history: Ms. Gómez is a 70 year old F With history of inflammatory arthritis, history of DVT antiphospholipid syndrome, on Coumadin for anticoagulation, presents to the emergency room today for evaluation of shortness of breath. The patient had a right shoulder open reduction and internal fixation done a few days ago at this facility. Subsequently she was discharged to a senior care. Over the last 2 days in the senior care the patient has reported progressive shortness of breath, this is associated with cough, subjective sensation of fever, as well as some nausea. The patient does not recollect when her last bowel movement was. Given that she was noted to be hypoxic at the SNF, associated with shortness of breath she was sent to the emergency room for further evaluation. On arrival to the emergency room patient was noted to be hypoxic in the 80s, requiring 4 to 5 L of oxygen to maintain oxygen saturation more than 90%. She was mildly tachycardic and had soft blood pressures. Chest x-ray showed bilateral pneumonia, CT scan of the abdomen pelvis was done which confirms a pneumonia, noted significant stool retention but no acute intra-abdominal pathology, no obstruction. Lab work showed leukopenia, elevated procalcitonin. Patient is going to be admitted to the hospital for management of respiratory failure and pneumonia. 09/20 patient seen examined at bed side Oxygen levels stable, oxyge needs are trending down now on 2 L Still has nausea, no bm since yesterday despite enema plan to get CT abdomen pelvis with oral contrast 09/21 Patient seen and examined, overnight events ntoed Enema x 2 tired without much imrpovement, X ray this AM ordered by surgery Hemodynamically remains stable Notes of pain and discomfort in back, belly, Has NG to suction, greenish fluid o ut 1800cc documented Pertinent ROS: Denies headache, dizziness Denies chest pain, palpitations No cough, stable shortness of breath abdomai pain resent intermittently per nursing, NG suctino present. . Constitutional Vitals: Vital Signs Temp Pulse Resp BP Pulse Ox 98.4 F 80 29 H 106/60 89 L 09/21/21 00:01 09/21/21 06:06 09/21/21 06:06 09/21/21 06:01 09/21/21 06:06 Period Temp Pulse Resp BP Sys/[place]ario Pulse Ox Last 24 Hr 97.7 F-98.5 F 74-86 14-29 91-130/55-116 84-100 Intake and Output 09/20/21 09/21/21 09/21/21 21:59 05:59 13:59 Intake Total 2079 917 Output Total 1000 915 Balance 1080 2 Weight 56.382 kg Intake & Output: Intake & Output 09/20/21 09/21/21 09/21/21 21:59 05:59 13:59 Intake Total 2079 917 Output Total 1000 915 Balance 1080 2 Weight 56.382 kg Intake: IV 2049 867 Lactated Ringers 1,000 ml @ 75 2000 752 mls/hr IV .[id number] [facility] Rx#: [id number] Zosyn 4.5 gm In Dextrose 5% in 50 50 Water 50 ml @ 100 mls/hr IV Q8H [facility] Rx#:[id number] Oral 0 50 NG Tube Flush 30 Right Nare 30 Output: Gastric Drainage 900 900 Right Nare 900 900 Urine Catheter Amount 25 15 Void Amount 75 Other: Urine Appearance Clear Sediment Uretheral (Weber) Clear Urine Color Tea Colored Dark Shanae Tea Colored Uretheral (Weber) Dark Shanae Urine Odor Normal Normal Uretheral (Weber) Normal # Bowel Movements 0 Additional findings Additional findings: Physical Exam Constitutional; Afebrile, cooperative, drowsy, goes to sleep easily , not in di stress. Eyes- No icterus, , No periorbital swelling Ears- Ext ear normal, hearing normal to conversation. Neck- Midline trachea, supple Respiratory system: Bibailar crackles, reduced air entry right base, no wheezing, no accesory muscle use CVS- Rate rhythm regular, S1,S2 heard, no gallop, no rub. Abdomen- Soft nontender abdomen, no organomegaly, no tenderness, no guarding or rigidity, bs present [employer]- AOOx3, moving all extremities, no gross focal deficit noted. OBJ DATA Labs CBC & Chem 7: 09/20/21 06:21 09/20/21 06:21 Labs: Abnormal Lab Results 09/20/21 09/20/21 09/20/21 06:21 06:21 05:15 WBC 3.1 L Hgb 11.1 L MPV 11.0 H Neut % (Auto) 83.5 H Lymph % (Auto) 9.4 L Lymph # (Auto) 0.29 L [place] # (Auto) Absolute Neutrophils PT 23.1 H INR 2.0 H VBG Lactic Acid Sodium 131 L Chloride 95 L BUN 27 H Glucose 51 L Calcium 7.4 L Total Bilirubin 1.5 H Direct Bilirubin 0.7 H AST Lactate Dehydrogenase 233 H Total Protein 5.1 L Albumin 2.6 L Procalcitonin Urine Protein Urine Ketones Hyaline Casts Urine Mucus POC Troponin I 09/19/21 09/19/21 09/19/21 17:33 16:59 16:58 WBC Hgb MPV Neut % (Auto) Lymph % (Auto) Lymph # (Auto) [place] # (Auto) Absolute Neutrophils PT 18.4 H INR 1.5 H VBG Lactic Acid 2.1 H Sodium Chloride BUN Glucose Calcium Total Bilirubin Direct Bilirubin AST Lactate Dehydrogenase Total Protein Albumin Procalcitonin Urine Protein 30 mg/dl A Urine Ketones 15 mg/dl A Hyaline Casts 6 H Urine Mucus Few A POC Troponin I 09/19/21 09/19/21 09/19/21 16:58 16:58 16:58 WBC Hgb MPV Neut % (Auto) Lymph % (Auto) Lymph # (Auto) [place] # (Auto) Absolute Neutrophils PT INR VBG Lactic Acid Sodium 127 L Chloride 89 L BUN 28 H Glucose Calcium 8.1 L Total Bilirubin 1.7 H Direct Bilirubin AST 38 H Lactate Dehydrogenase Total Protein Albumin Procalcitonin 3.77 H Urine Protein Urine Ketones Hyaline Casts Urine Mucus POC Troponin I 0.01 L 09/19/21 16:58 WBC 1.2 L Hgb MPV 11.2 H Neut % (Auto) 82.9 H Lymph % (Auto) 12.0 L Lymph # (Auto) 0.14 L [place] # (Auto) 0.06 L Absolute Neutrophils 0.97 L* PT INR VBG Lactic Acid Sodium Chloride BUN Glucose Calcium Total Bilirubin Direct Bilirubin AST Lactate Dehydrogenase Total Protein Albumin Procalcitonin Urine Protein Urine Ketones Hyaline Casts Urine Mucus POC Troponin I Meds: Medications Acetaminophen (Acetaminophen 325 Mg Tablet) 650 mg PO Q4-6HP PRN; Protocol PRN Reason: Per Pain Protocol/Fever > 101 Albuterol/Ipratropium (Ipratropium/Albuterol 3 Ml Ampul.Neb) 3 ml NEB Q4HRT PRN PRN Reason: shortness of breath Atorvastatin Calcium (Atorvastatin 40 Mg Tablet) 40 mg PO QHS [facility] Last Admin: 09/20/21 21:21 Dose: Not Given Documented by: Diagnostic Test (Pha) (Accu-Chek 1 Each Strip) 1 each FS PRN PRN PRN Reason: Blood Sugar - Low Last Admin: 09/20/21 12:23 Dose: 1 each Documented by: Piperacillin Sod/Tazobactam (Sod 4.5 gm/ Dextrose) 50 mls @ 100 mls/hr IV Q8H [facility]; Protocol Last Admin: 09/21/21 06:05 Dose: 100 mls/hr Documented by: Lactated Ringer's (Lactated Ringers) 1,000 mls @ 75 mls/hr IV .[id number] [facility] Last Admin: 09/21/21 04:35 Dose: 75 mls/hr Documented by: Acetaminophen (Ofirmev) 650 mg in 65 mls @ 130 mls/hr IV Q6HP PRN; Protocol PRN Reason: PAIN/FEVER > 101 Last Infusion: 09/20/21 22:22 Dose: Infused Documented by: Lorazepam (Lorazepam 2 Mg/Ml Vial) 0.5 mg IV Q2HP PRN PRN Reason: ANXIETY/SEDATION Magnesium Hydroxide (Magnesium Hydroxide 30 Ml Oral.Susp) 30 ml PO DAILYP PRN PRN Reason: Constipation Methylnaltrexone [place] (Methylnaltrexone [place] 12 Mg/0.6 Ml Syringe) 12 mg SQ DAILY [facility] Stop: 09/22/21 09:01 Last Admin: 09/20/21 21:45 Dose: 12 mg Documented by: Metoclopramide HCl (Metoclopramide 10 Mg/2 Ml Vial) 10 mg IV Q6 [facility] Last Admin: 09/21/21 06:05 Dose: 10 mg Documented by: Naloxone HCl (Naloxone Hcl 0.4 Mg/Ml Vial) 0.1 mg IV Q2MIN PRN PRN Reason: Opiate Reversal Nitroglycerin (Nitroglycerin 0.4 Mg Tab.Subl) 0.4 mg SL Q5M PRN PRN Reason: Chest Pain Ondansetron HCl (Ondansetron 4 Mg/2 Ml Vial) 4 mg IV Q4-6HP PRN; Protocol PRN Reason: Nausea And Vomiting Last Admin: 09/20/21 13:59 Dose: 4 mg Documented by: Prednisone (Prednisone 5 Mg Tablet) 5 mg PO [facility] Last Admin: 09/20/21 08:17 Dose: 5 mg Documented by: Promethazine HCl (Promethazine 25 Mg/Ml Vial) 12.5 mg IV Q4-6HP PRN; Protocol PRN Reason: Nausea And Vomiting Senna (Sennosides 1 Tablet) 2 tab PO [facility] Sodium Chloride (0.9 % Sodium Chloride 10 Ml Syringe) 10 ml IV Q8 [facility] Last Admin: 09/21/21 04:36 Dose: Not Given Documented by: Warfarin Sodium (Warfarin Per Pharmacy) 1 order PO DAILY@1400 [facility] Last Admin: 09/20/21 14:26 Dose: 1 order Documented by: A/P Narrative A/P Narrative: A/P Narrative: Acute hypoxic Respiratory Failure Severe Sepsis Pneumonia, suspect aspiration -Lactate was 1.4 yesterday, -clinically sepsis syndrome is improving. -check nasa mrsa, is neg, vanco discontinued continue zosyn -follow cultures NGTD -wean down oxygen as tolerated, presently on 4 L -incentive spirometery as tolerated Hypoglycemia -glucose 51 yesterday, given d50 with improvement in levels -recheck if low start on dextrose fluids Hypertension -bp stalbe not on any meds at thsi time, continue to hold Hypercoagulable state h/o DVT h/o PE Antiphospholipid syndrome -INR is therapeutic now -pharmacy consult -lovenox to be stopped h/o CKD stage 2 -monitor renal function Constipation Small bowel obstruction, partial significant Fecal retention in colon -as noted on CT -Consulted Gen surgery, started on relistor, and enema x 2 not much improvement Hyponatremia, present on admission -improving, monitor. Time Spent With Patient Time: Total time spent is greater than 50% in coordination of care (as documented) at patient's floor/unit and/or counseling patient: Total time spent with greater than 50% in coordination of care (as documented) at patient's floor/unit and/or counseling patient:: Greater than 35 minutes QUALITY VTE Deep Vein Thrombosis/Pulmonary Embolism Present on Admission: No
[2021-09-21] MEDS ORDERED: DEXTROSE 50% 50 ML SYRINGE IV ONE ×2 (06:51→07:06)
[2021-09-21] MEDS: DEXTROSE 5%-LR 1,000 ML IV SCH (07:08)
[2021-09-21] MEDS: HYDROCORTISONE SOD SUCC 100 MG VIAL IV SCH ×3 (07:41→21:19)
[2021-09-21] MEDS: ACETAMINOPHEN 650 MG/65 ML BAG IV PRN (07:45)
[2021-09-21 07:57] LABS: Basophils # (Auto) 0 K/mcL (0.00-0.30); Basophils % (Auto) 0 % (0.0-2.0); Eosinophils # (Auto) 0.01 K/mcL (0.00-0.70); Eosinophils % (Auto) 0.1 % (0.0-7.0); Hematocrit 32.9 % (34.1-44.9); Hemoglobin 10.5 g/dL (11.2-15.7); Lymphocytes # (Auto) 0.32 K/mcL (1.50-4.80); Lymphocytes % (Auto) 3.4 % (15.5-49.0); Mean Cell Volume 97.1 fL (80.0-100.0); Mean Corpuscular HGB Conc 31.9 g/dL (31.0-36.0); Mean Platelet Volume 10.9 fL (7.4-10.4); Monocytes # (Auto) 0.32 K/mcL (0.10-0.90); Monocytes % (Auto) 3.4 % (1.0-12.0); Neutrophils % (Auto) 93.1 % (38.0-78.0); Platelet Count 163 K/mcL (140-440); RBC 3.39 M/mcL (3.59-5.38); Red Cell Distribution Width 13.9 % (11.5-14.5); WBC 9.4 K/mcL (4.5-11.0)
[2021-09-21 08:25] LABS: ALT/SGPT 9 U/L (<40); AST/SGOT 30 U/L (<32); Albumin 2.2 gm/dL (3.2-5.2); Albumin/Globulin Ratio 0.8 (1.0-2.3); Alkaline Phosphatase 66 U/L (39-117); Bilirubin,Direct 0.9 mg/dL (<0.3); Bilirubin,Total 1.5 mg/dL (0.1-1.0); Blood Urea Nitrogen 33 mg/dL (8-23); Calcium 7.2 mg/dL (8.6-10.4); Carbon Dioxide 24 mmol/L (22-30); Chloride 93 mmol/L (96-108); Globulin 2.8 gm/dL (2.2-3.7); Glomerular Filtration Rate 87; Glucose 152 mg/dL (70-105); Lactate Dehydrogenase 233 U/L (135-225); Phosphorous 3.2 mg/dL (2.5-4.5); Triglycerides 62 mg/dL (<150)
[2021-09-21 08:27] LABS: INR 5.2 (0.9-1.1); Prothrombin Time 50.2 sec (11.9-14.5)
[2021-09-21] MEDS: METHYLNALTREXONE BROMIDE 12 MG/0.6 ML SYRINGE SQ SCH (08:35)
[2021-09-21] MEDS: THIAMINE 100 MG in 0.9 % SODIUM CHLORIDE 50 ML IV SCH (08:35)
--- NOTE | 2021-09-21 10:00 | XRay Report ---
CLINICAL INFORMATION: FOR F/U OF ILEUS COMPARISON: None. FINDINGS: NG tube tip in stable position the gastric body. Stomach and small bowel are decompressed with moderate dilatation of the colon to the rectal level. Moderate amount of colonic stool noted. Findings most compatible atypical ileus. Moderate bibasilar infiltrates appreciated. IMPRESSION: Moderate atypical ileus. Consider Hypaque enema both to cleanse the colon and to ensure the absence of distal colonic obstruction Interpreted and Authenticated by: Prateek Ngo 09/21/21
[2021-09-21] MEDS: ONDANSETRON 4 MG/2 ML VIAL IV PRN (12:42)
--- NOTE | 2021-09-21 12:58 | General Surgery Progress Note ---
SUBJECTIVE Subjective Patient information: Note initiated : 09/21/21 at 12:53 pm Service Date, if different from initiated Date: [] Patient: Sima Gómez 70 y/o F admitted on 09/19/21 for SOB, Abdominal Pain. Chief Complaint: [] Principal diagnosis: Colonic pseudoobstruction; slow transit constipation Interval history: Patient had milk molasses enema, subcutaneous Relistor last evening without results. She still has dilated colon down to the rectosigmoid area and massive distention of her right colon with a large melenic stool. She complains of abdominal tenderness. She has significant distention of her abdomen. Patient will be scheduled for Gastrografin enema to evaluate the rectosigmoid today Constitutional Vitals: Vital Signs Temp Pulse Resp BP Pulse Ox 97.7 F 75 18 104/63 98 09/21/21 12:01 09/21/21 12:01 09/21/21 12:01 09/21/21 12:01 09/21/21 12:01 Period Temp Pulse Resp BP Sys/Del Rosario Pulse Ox Last 24 Hr 97.7 F-98.4 F 73-86 15-29 91-130/55-116 84-100 Intake and Output 09/20/21 09/21/21 09/21/21 21:59 05:59 13:59 Intake Total 2079 917 387 Output Total 1000 915 85 Balance 1080 2 302 Weight 124 lb 4.8 oz Intake & Output: Intake & Output 09/20/21 09/21/21 09/21/21 21:59 05:59 13:59 Intake Total 2079 917 387 Output Total 1000 915 85 Balance 1080 2 302 Weight 124 lb 4.8 oz Intake: IV 2049 867 357 Lactated Ringers 1,000 ml @ 75 2000 752 191 mls/hr IV .[id number] [facility] Rx#: [id number] Zosyn 4.5 gm In Dextrose 5% in 50 50 50 Water 50 ml @ 100 mls/hr IV Q8H [facility] Rx#:[id number] Vitamin B1 100 mg In Sodium 51 Chloride 0.9% 50 ml @ 50 mls/hr IV DAILY [facility] Rx#:[id number] Oral 0 50 Tube Feeding 0 NG Tube Flush 30 30 Right Nare 30 30 Output: Gastric Drainage 900 900 Right Nare 900 900 Urine Catheter Amount 25 15 85 Void Amount 75 Other: Urine Appearance Clear Sediment Clear Uretheral (Weber) Clear Clear Urine Color Tea Colored Dark Shanae Dark Shanae Tea Colored Uretheral (Weber) Dark Shanae Dark Shanae Urine Odor Normal Normal Normal Uretheral (Weber) Normal Normal # Bowel Movements 0 Eye Eye exam: Present EOMI Pupils: Present normal accommodation and PERRL ENT ENT exam: Present mucous membranes dry and normal oropharynx Neck Neck exam: Present full ROM; Absent tenderness Respiratory Respiratory exam: Present normal respiratory exam and CTAB; Absent wheezes Cardiovascular Cardiovascular exam: Present normal rate and rhythm, +S1 and +S2; Absent JVD GI/Abdominal GI/Abdominal exam: Present normal bowel sounds, distended (Diffuse distention of entire abdominal area), guarding and tenderness (Diffuse tenderness) Extremities Exam Extremities exam: Present full ROM, normal capillary refill and neurovascular intact Neurological Exam Neurological exam: Present oriented X3; Absent motor sensory deficit Psychiatric Psychiatric exam: Present depressed, normal affect and normal mood A/P Assessment and plan (1) Slow transit constipation: Status: Acute (2) Primary chronic pseudo-obstruction of colon: Status: Acute (3) Bilateral pneumonia: Status: Acute Narrative A/P Narrative: Patient will have Gastrografin enema and decision about further therapy will be dependent on the results of that test Time Spent With Patient Time: Total time spent is greater than 50% in coordination of care (as documented) at patient's floor/unit and/or counseling patient:
--- NOTE | 2021-09-21 13:06 | Internal Med Progress Note ---
SUBJECTIVE Subjective Patient information: Note initiated : 09/21/21 at 12:59 pm Service Date, if different from initiated Date: [] Patient: Sima Gómez 70 y/o F admitted on 09/19/21 for SOB, Abdominal Pain. Chief Complaint: [] Principal diagnosis: Colonic pseudoobstruction; slow transit constipation Interval history: History of present illness: Ms. Gómez is a 70 year old F With history of inflammatory arthritis, history of DVT antiphospholipid syndrome, on Coumadin for anticoagulation, presents to the emergency room today for evaluation of shortness of breath. The patient had a right shoulder open reduction and internal fixation done a few days ago at this facility. Subsequently she was discharged to a residential. Over the last 2 days in the residential the patient has reported progressive shortness of breath, this is associated with cough, subjective sensation of fever, as well as some nausea. The patient does not recollect when her last bowel movement was. Given that she was noted to be hypoxic at the SNF, associated with shortness of breath she was sent to the emergency room for further evaluation. On arrival to the emergency room patient was noted to be hypoxic in the 80s, requiring 4 to 5 L of oxygen to maintain oxygen saturation more than 90%. She was mildly tachycardic and had soft blood pressures. Chest x-ray showed bilateral pneumonia, CT scan of the abdomen pelvis was done which confirms a pneumonia, noted significant stool retention but no acute intra-abdominal pathology, no obstruction. Lab work showed leukopenia, elevated procalcitonin. Patient is going to be admitted to the hospital for management of respiratory failure and pneumonia. 09/20 patient seen examined at bed side Oxygen levels stable, oxyge needs are trending down now on 2 L Still has nausea, no bm since yesterday despite enema plan to get CT abdomen pelvis with oral contrast 09/21 Patient seen and examined, overnight events ntoed Enema x 2 tired without much imrpovement, X ray this AM ordered by surgery Hemodynamically remains stable Notes of pain and discomfort in back, belly, Has NG to suction, greenish fluid out 1800cc documented 09/22 Constitutional Vitals: Vital Signs Temp Pulse Resp BP Pulse Ox 97.7 F 75 18 104/63 98 09/21/21 12:01 09/21/21 12:09/21/21 12:09/21/21 12:01 09/21/21 12:01 Period Temp Pulse Resp BP Sys/[place] Pulse Ox Last 24 Hr 97.7 F-98.4 F 73-86 15-29 91-130/55-116 84-100 Intake and Output 09/20/21 09/21/21 09/21/21 21:59 05:59 13:59 Intake Total 2080 917 387 Output Total 1000 915 85 Balance 1080 2 302 Weight 56.382 kg Intake & Output: Intake & Output 09/20/21 09/21/21 09/21/21 21:59 05:59 13:59 Intake Total 2080 917 387 Output Total 1000 915 85 Balance 1080 2 302 Weight 56.382 kg Intake: IV 2049 867 357 Lactated Ringers 1,000 ml @ 75 2000 752 191 mls/hr IV .[id number] [facility] Rx#: [id number] Zosyn 4.5 gm In Dextrose 5% in 50 50 50 Water 50 ml @ 100 mls/hr IV Q8H [facility] Rx#:[id number] Vitamin B1 100 mg In Sodium 51 Chloride 0.9% 50 ml @ 50 mls/hr IV DAILY [facility] Rx#:[id number] Oral 0 50 Tube Feeding 0 NG Tube Flush 30 30 Right Nare 30 30 Output: Gastric Drainage 900 900 Right Nare 900 900 Urine Catheter Amount 25 15 85 Void Amount 75 Other: Urine Appearance Clear Sediment Clear Uretheral (Weber) Clear Clear Urine Color Tea Colored Dark Shanae Dark Shanae Tea Colored Uretheral (Weber) Dark Shanae Dark Shanae Urine Odor Normal Normal Normal Uretheral (Weber) Normal Normal # Bowel Movements 0 Exam: General: Alert, Awake, No acute Distress Eyes/N/T: EOMI, Head/Neck: neck supple, CV: RRR, No murmurs, Pulm: Bibasilar rales , diminished right base, no wheezing Abd: soft, nontender, +BS x4 Ext: no clubbing/cyanosis/edema Neuro: Alert, no focal deficits, moves all extremities, Skin: warm/dry OBJ DATA Labs CBC & Chem 7: 09/21/21 03:21 09/21/21 03:21 Labs: Abnormal Lab Results 09/21/21 09/21/21 09/21/21 03:21 03:21 03:21 WBC RBC 3.39 L Hgb 10.5 L Hct 32.9 L MPV 10.9 H Neut % (Auto) 93.1 H Lymph % (Auto) 3.4 L Lymph # (Auto) 0.32 L [place] # (Auto) Absolute Neutrophils 8.76 H PT 50.2 H INR 5.2 H VBG Lactic Acid Sodium 128 L Chloride 93 L BUN 33 H Glucose 152 H Calcium 7.2 L Total Bilirubin 1.5 H Direct Bilirubin 0.9 H AST Lactate Dehydrogenase 233 H Total Protein 5.0 L Albumin 2.2 L Albumin/Globulin Ratio 0.8 L Procalcitonin Urine Protein Urine Ketones Hyaline Casts Urine Mucus POC Troponin I 09/20/21 09/20/21 09/20/21 06:21 06:21 05:15 WBC 3.1 L RBC Hgb 11.1 L Hct MPV 11.0 H Neut % (Auto) 83.5 H Lymph % (Auto) 9.4 L Lymph # (Auto) 0.29 L [place] # (Auto) Absolute Neutrophils PT 23.1 H INR 2.0 H VBG Lactic Acid Sodium 131 L Chloride 95 L BUN 27 H Glucose 51 L Calcium 7.4 L Total Bilirubin 1.5 H Direct Bilirubin 0.7 H AST Lactate Dehydrogenase 233 H Total Protein 5.1 L Albumin 2.6 L Albumin/Globulin Ratio Procalcitonin Urine Protein Urine Ketones Hyaline Casts Urine Mucus POC Troponin I 09/19/21 09/19/21 09/19/21 17:33 16:59 16:58 WBC RBC Hgb Hct MPV Neut % (Auto) Lymph % (Auto) Lymph # (Auto) [place] # (Auto) Absolute Neutrophils PT 18.4 H INR 1.5 H VBG Lactic Acid 2.1 H Sodium Chloride BUN Glucose Calcium Total Bilirubin Direct Bilirubin AST Lactate Dehydrogenase Total Protein Albumin Albumin/Globulin Ratio Procalcitonin Urine Protein 30 mg/dl A Urine Ketones 15 mg/dl A Hyaline Casts 6 H Urine Mucus Few A POC Troponin I 09/19/21 09/19/21 09/19/21 16:58 16:58 16:58 WBC RBC Hgb Hct MPV Neut % (Auto) Lymph % (Auto) Lymph # (Auto) [place] # (Auto) Absolute Neutrophils PT INR VBG Lactic Acid Sodium 127 L Chloride 89 L BUN 28 H Glucose Calcium 8.1 L Total Bilirubin 1.7 H Direct Bilirubin AST 38 H Lactate Dehydrogenase Total Protein Albumin Albumin/Globulin Ratio Procalcitonin 3.77 H Urine Protein Urine Ketones Hyaline Casts Urine Mucus POC Troponin I 0.01 L 09/19/21 16:58 WBC 1.2 L RBC Hgb Hct MPV 11.2 H Neut % (Auto) 82.9 H Lymph % (Auto) 12.0 L Lymph # (Auto) 0.14 L [place] # (Auto) 0.06 L Absolute Neutrophils 0.97 L* PT INR VBG Lactic Acid Sodium Chloride BUN Glucose Calcium Total Bilirubin Direct Bilirubin AST Lactate Dehydrogenase Total Protein Albumin Albumin/Globulin Ratio Procalcitonin Urine Protein Urine Ketones Hyaline Casts Urine Mucus POC Troponin I Meds: Medications Acetaminophen (Acetaminophen 325 Mg Tablet) 650 mg PO Q4-6HP PRN; Protocol PRN Reason: Per Pain Protocol/Fever > 101 Albuterol/Ipratropium (Ipratropium/Albuterol 3 Ml Ampul.Neb) 3 ml NEB Q4HRT PRN PRN Reason: shortness of breath Atorvastatin Calcium (Atorvastatin 40 Mg Tablet) 40 mg PO QHS [facility] Last Admin: 09/20/21 21:21 Dose: Not Given Documented by: Diagnostic Test (Pha) (Accu-Chek 1 Each Strip) 1 each FS PRN PRN PRN Reason: Blood Sugar - Low Last Admin: 09/21/21 07:12 Dose: 1 each Documented by: Diagnostic Test (Pha) (Accu-Chek 1 Each Strip) 1 each FS Q4 [facility] Last Admin: 09/21/21 12:14 Dose: 1 each Documented by: Hydrocortisone Sodium Succinate (Hydrocortisone Sod Succ 100 Mg Vial) 50 mg IV Q6 [facility] Last Admin: 09/21/21 12:14 Dose: 50 mg Documented by: Piperacillin Sod/Tazobactam (Sod 4.5 gm/ Dextrose) 50 mls @ 100 mls/hr IV Q8H [facility]; Protocol Last Infusion: 09/21/21 06:35 Dose: Infused Documented by: Acetaminophen (Ofirmev) 650 mg in 65 mls @ 130 mls/hr IV Q6HP PRN; Protocol PRN Reason: PAIN/FEVER > 101 Last Infusion: 09/21/21 08:15 Dose: Infused Documented by: Dextrose/Lactated Ringer's (Dextrose 5%-Lactated Ringers) 1,000 mls @ 100 mls/hr IV .Q10H [facility] Last Admin: 09/21/21 07:08 Dose: 100 mls/hr Documented by: Thiamine HCl 100 mg/ Sodium (Chloride) 51 mls @ 50 mls/hr IV DAILY [facility] Stop: 09/23/21 10:02 Last Infusion: 09/21/21 09:40 Dose: Infused Documented by: Lorazepam (Lorazepam 2 Mg/Ml Vial) 0.5 mg IV Q2HP PRN PRN Reason: ANXIETY/SEDATION Magnesium Hydroxide (Magnesium Hydroxide 30 Ml Oral.Susp) 30 ml PO DAILYP PRN PRN Reason: Constipation Methylnaltrexone [place] (Methylnaltrexone [place] 12 Mg/0.6 Ml Syringe) 12 mg SQ DAILY [facility] Stop: 09/22/21 09:01 Last Admin: 09/21/21 08:35 Dose: 12 mg Documented by: Metoclopramide HCl (Metoclopramide 10 Mg/2 Ml Vial) 10 mg IV Q6 [facility] Last Admin: 09/21/21 12:14 Dose: 10 mg Documented by: Naloxone HCl (Naloxone Hcl 0.4 Mg/Ml Vial) 0.1 mg IV Q2MIN PRN PRN Reason: Opiate Reversal Nitroglycerin (Nitroglycerin 0.4 Mg Tab.Subl) 0.4 mg SL Q5M PRN PRN Reason: Chest Pain Ondansetron HCl (Ondansetron 4 Mg/2 Ml Vial) 4 mg IV Q4-6HP PRN; Protocol PRN Reason: Nausea And Vomiting Last Admin: 09/21/21 12:42 Dose: 4 mg Documented by: Promethazine HCl (Promethazine 25 Mg/Ml Vial) 12.5 mg IV Q4-6HP PRN; Protocol PRN Reason: Nausea And Vomiting Senna (Sennosides 1 Tablet) 2 tab PO HSP [facility] Sodium Chloride (0.9 % Sodium Chloride 10 Ml Syringe) 10 ml IV Q8 [facility] Last Admin: 09/21/21 04:36 Dose: Not Given Documented by: Warfarin Sodium (Warfarin Per Pharmacy) 1 order PO DAILY@1400 [facility] Last Admin: 09/20/21 14:26 Dose: 1 order Documented by: A/P Narrative A/P Narrative: A: *Acute hypoxic Respiratory Failure; -presently on 4 L *Severe Sepsis: *Pneumonia (suspect aspiration): clinically sepsis syndrome is improving. -check nasa mrsa, is neg, *Hypoglycemia: -pt remains hypoglycemic, start on fs monitoring *Adrenal insuficency: -pt on chr low dose prendisone, recent surgery and now acute infectino, Pt remains weak *Hypertension: -bp stalbe not on any meds at thsi time, continue to hold *Hypercoagulable state (h/o DVT/PE) / Antiphospholipid syndrome: *h/o CKD stage 2 *Constipation *pSBO & significant Fecal retention in colon: *Hyponatremia, present on admission: improving P: -wean o2 as able -IS/Acapella -IVF -vanco discontinued continue zosyn -start on d5LR at 100cc/hr -will stop prednisone and start on IV hydrocortisone at 50cc q6hrs for now -Consulted Gen surgery, started on relistor, and enema x 2 not much improvement - -pt/ot -ppx: warfarin per pharm Time Spent With Patient Time: Total time spent is greater than 50% in coordination of care (as documented) at patient's floor/unit and/or counseling patient: QUALITY VTE Deep Vein Thrombosis/Pulmonary Embolism Present on Admission: No
--- NOTE | 2021-09-21 14:39 | XRay Report ---
CLINICAL INFORMATION: Marked colonic dilatation to the distal sigmoid level. Evaluate for stricture COMPARISON: Abdomen and pelvic CT 09/20/2020 TECHNIQUE: Gastrografin diluted oneto one was infused through the rectal tube and spot films were obtained. Total fluoroscopy time: one minute. FINDINGS: There is a high-grade stricture in the distal sigmoid colon located in the central false pelvis region. Despite increasing pressures, only minimal contrast was administered through the stricture into the proximal dilated sigmoid colon. IMPRESSION: High-grade stricture of the distal sigmoid colon. Case discussed with Dr. Bond Interpreted and Authenticated by: Prateek Ngo 09/21/21
[2021-09-21] MEDS ORDERED: 0.9 % SODIUM CHLORIDE 250 ML IV SCH ×2 (14:45→18:30)
[2021-09-21] MEDS ORDERED: PHYTONADIONE 10 MG in 0.9 % SODIUM CHLORIDE 50 ML IV ONE (15:30)
[2021-09-21 15:31] LABS: POC INR > 6.0; POC Pro Time > 66.0 sec
[2021-09-21 16:26] LABS: Prothrombin Time 48.9 sec (11.9-14.5)
[2021-09-21] MEDS ORDERED: PHENYLephrine 1 MG/10 ML SYRINGE (ANEST) ONE (18:10)
[2021-09-21] MEDS ORDERED: ROCURONIUM 10 MG/ML ML IV ONE (18:10)
[2021-09-21] MEDS ORDERED: DEXAMETHASONE 10 MG/ML VIAL ONE (18:10)
[2021-09-21] MEDS ORDERED: ALBUMIN HUMAN 25 GM/100 ML BAG IV ONE ×3 (18:10→18:20)
[2021-09-21] MEDS ORDERED: ONDANSETRON 4 MG/2 ML VIAL ONE (18:10)
[2021-09-21] MEDS ORDERED: methylPREDNISolone SOD SUCC 125 MG/2 ML VIAL ONE (18:10)
[2021-09-21] MEDS ORDERED: KETAMINE 50 MG/ML Syringe (ANEST) IV ONE (18:10)
[2021-09-21] MEDS ORDERED: GLYCOPYRROLATE 0.2 MG/ML VIAL IV ONE (18:10)
[2021-09-21] MEDS ORDERED: MAGNESIUM SULFATE 2 GM/50 ML BAG IV ONE (18:10)
[2021-09-21] MEDS ORDERED: fentaNYL 100 MCG/2 ML VIAL IV ONE (18:10)
[2021-09-21] MEDS ORDERED: LIDOCAINE HCL/PF 100 MG/5 ML SYRINGE IV ONE (18:10)
[2021-09-21] MEDS ORDERED: PROPOFOL 200 MG/20 ML VIAL IV ONE (18:10)
[2021-09-21] MEDS ORDERED: SUCCINYLCHOLINE 20 MG/ML ML IV ONE (18:10)
--- NOTE | 2021-09-21 19:36 | Brief Operative Note ---
Brief Operative Note Date of procedure: 09/21/21 Pre-op diagnosis: sigmoid colon obstruction;chronic megacolon Post-op diagnosis: other (right colon volvulus and sigmoid colon volvulus with sigmoid obstruction) Procedure: exploratory laparotomy with derotation of right colon and sigmoid colon volvulus Grafts/Implants: No Anesthesia: GETA Findings: massive dilation of colon extending down to distal sigmoid colon with malrotation of cecum Surgeon: Gilles Bond
[2021-09-21] MEDS ORDERED: HEPARIN/NS 500 ML IV ONE (20:01)
[2021-09-21] MEDS ORDERED: PROPOFOL 100 ML IV ONE (20:19)
[2021-09-21] MEDS ORDERED: PHYTONADIONE 10 MG/ML AMPUL ONE (21:20)
[2021-09-22] MEDS: PROPOFOL 1,000 MG in PREMIX 1 BAG IV SCH ×3 (00:14→20:23)
[2021-09-22] MEDS: CHLORHEXIDINE GLUCONATE 1 ML ORAL.SOL SWABMOUTH SCH ×4 (00:15→20:24)
[2021-09-22] MEDS: HYDROCORTISONE SOD SUCC 100 MG VIAL IV SCH ×4 (00:22→17:52)
[2021-09-22] MEDS: METOCLOPRAMIDE 10 MG/2 ML VIAL IV SCH ×4 (00:23→17:51)
[2021-09-22] MEDS: PYRIDOSTIGMINE BROMIDE 10 MG/2 ML AMPUL IV SCH ×4 (01:21→17:52)
[2021-09-22] MEDS: fentaNYL 100 MCG/2 ML VIAL IV PRN ×5 (02:00→22:21)
[2021-09-22] MEDS ORDERED: ALBUMIN HUMAN 12.5 GM/50 ML BAG IV ONE (02:07)
[2021-09-22] MEDS ORDERED: ALBUMIN HUMAN 50 ML IV ONE (02:07)
[2021-09-22] MEDS ORDERED: NOREPINEPHRINE BITARTRATE 16 MG in 0.9 % SODIUM CHLORIDE 234 ML IV PRN ×2 (02:09→09:00)
[2021-09-22] MEDS: DEXTROSE 5%-LR 1,000 ML IV SCH ×2 (02:29→03:55)
[2021-09-22] MEDS: LORazepam 2 MG/ML VIAL IV PRN (02:47)
--- NOTE | 2021-09-22 03:12 | XRay Report ---
CLINICAL INFORMATION: Follow-up infiltrates COMPARISON: 09/19/2021 TECHNIQUE: PA and Lateral views FINDINGS: The heart is mildly enlarged but unchanged. Mediastinum and pulmonary vessels are normal. Moderate tolerated infiltrates in both mid and lower lungs have worsened since the comparison exam two days ago. Small pleural effusions noted. Right IJ central line tip overlies the SVC right atrial junction. IMPRESSION: Moderate consolidated infiltrates in both mid and lower lungs worsening since comparison exam two days ago. Consider infection or aspiration Interpreted and Authenticated by: Prateek Ngo 09/22/21
--- NOTE | 2021-09-22 03:14 | XRay Report ---
CLINICAL INFORMATION: NG Tube Confirmation of Placement COMPARISON: None. FINDINGS: NG tube tip overlies the gastric body. Stomach and small bowel remain decompressed. There is a large amount colonic stool and gas which is known to be obstructed at the distal sigmoid level. No free air or soft tissue mass. IMPRESSION: Distal sigmoid obstruction pattern unchanged NG tip overlying the gastric body Interpreted and Authenticated by: Prateek Ngo 09/22/21
[2021-09-22] MEDS ORDERED: NOREPINEPHRINE BITARTRATE 4 MG/4 ML VIAL IV ONE (03:16)
[2021-09-22] MEDS: 0.9 % SODIUM CHLORIDE 250 ML IV SCH ×2 (03:54→16:36)
[2021-09-22] MEDS: 0.9 % SODIUM CHLORIDE 10 ML SYRINGE IV SCH ×3 (06:01→22:50)
[2021-09-22 07:30] LABS: INR 1.3 (0.9-1.1); Prothrombin Time 16.4 sec (11.9-14.5)
--- NOTE | 2021-09-22 07:34 | Internal Med Progress Note ---
SUBJECTIVE Subjective Patient information: Note initiated : 09/22/21 at 7:25 am Service Date, if different from initiated Date: [] Patient: Sima Gómez a 70 y/o F admitted on 09/19/21 for SOB, Abdominal Pain. Chief Complaint: [] Principal diagnosis: Colonic pseudoobstruction; slow transit constipation Interval history: History of present illness: Ms. Gómez is a 70 year old F With history of inflammatory arthritis, history of DVT antiphospholipid syndrome, on Coumadin for anticoagulation, presents to the emergency room today for evaluation of shortness of breath. The patient had a right shoulder open reduction and internal fixation done a few days ago at this facility. Subsequently she was discharged to a senior living. Over the last 2 days in the senior living the patient has reported progressive shortness of breath, this is associated with cough, subjective sensation of fever, as well as some nausea. The patient does not recollect when her last bowel movement was. Given that she was noted to be hypoxic at the SNF, associated with shortness of breath she was sent to the emergency room for further evaluation. On arrival to the emergency room patient was noted to be hypoxic in the 80s, requiring 4 to 5 L of oxygen to maintain oxygen saturation more than 90%. She was mildly tachycardic and had soft blood pressures. Chest x-ray showed bilateral pneumonia, CT scan of the abdomen pelvis was done which confirms a pneumonia, noted significant stool retention but no acute intra-abdominal pathology, no obstruction. Lab work showed leukopenia, elevated procalcitonin. Patient is going to be a dmitted to the hospital for management of respiratory failure and pneumonia. 09/20 patient seen examined at bed side Oxygen levels stable, oxyge needs are trending down now on 2 L Still has nausea, no bm since yesterday despite enema plan to get CT abdomen pelvis with oral contrast 09/21 Patient seen and examined, overnight events ntoed Enema x 2 tired without much imrpovement, X ray this AM ordered by surgery Hemodynamically remains stable Notes of pain and discomfort in back, belly, Has NG to suction, greenish fluid out 1800cc documented 09/22 Patient went for exploratory laparotomy yesterday found to have sigmoid colon volvulus. She remained intubated postop. And is currently on the ventilator and will wean off sedation and trial CPAP. Hemoglobin low this morning receiving 2 units of blood. Follow-up CBC afterward. Unable to gather review of system given patient on vent sedated Constitutional Vitals: Vital Signs Temp Pulse Resp BP Pulse Ox 97.6 F 70 16 101/62 100 09/22/21 05:00 09/22/21 05:00 09/22/21 07:05 09/22/21 07:00 09/22/21 07:05 Period Temp Pulse Resp BP Sys/Del Rosario Pulse Ox Last 24 Hr 96.4 F-98.2 F 69-83 14-35 82-184/39-97 94-100 Intake and Output 09/21/21 09/22/21 09/22/21 21:59 05:59 13:59 Intake Total 1459 465 Output Total 70 525 Balance 1389 -60 Weight 56.382 kg Intake & Output: Intake & Output 09/21/21 09/22/21 09/22/21 21:59 05:59 13:59 Intake Total 1459 465 Output Total 70 525 Balance 1389 -60 Weight 56.382 kg Intake: IV 1009 215 Dextrose 5%-Lactated Ringers 1, 908 92 000 ml @ 100 mls/hr IV .Q10H [facility] Rx#:[id number] Levophed 16 mg In Sodium 1 Chloride 0.9% 234 ml @ 10 MCG/ MIN 9.375 mls/hr IV PRN PRN Rx# :[id number] Aquamephyton 10 mg In Sodium 51 Chloride 0.9% 50 ml @ 50 mls/hr IV ONCE ONE Rx#:[id number] Zosyn 4.5 gm In Dextrose 5% in 50 50 Water 50 ml @ 100 mls/hr IV Q8H [facility] Rx#:[id number] Diprivan 1,000 mg In Premix 1 22 Bag @ 5 MCG/KG/MIN 1.691 mls/hr IV .Q24H [facility] Rx#:[id number] Tube Feeding 0 Blood Product 450 250 Output: Urine Catheter Amount 70 525 Other: Urine Appearance Sediment Clear Uretheral (Weber) Sediment Sediment Urine Color Red Brown Dark Yellow Uretheral (Weber) Red Brown Dark Yellow Urine Odor Normal Exam: General: Alert, Awake, No acute Distress Eyes/N/T: PERRL, Head/Neck: neck supple, CV: RRR, No murmurs, Pulm: Bibasilar rales , diminished, no wheezing Abd: soft, nontender, +BS x4 Ext: no clubbing/cyanosis, trace b/l LE edema Neuro: sedated on vent unable to assess for (Alert, no focal deficits, moves all extremities) Skin: warm/dry OBJ DATA Labs CBC & Chem 7: 09/22/21 05:14 09/22/21 05:14 Labs: Abnormal Lab Results 09/21/21 09/21/21 09/21/21 15:39 15:24 03:21 WBC RBC Hgb Hct MPV Neut % (Auto) Lymph % (Auto) Lymph # (Auto) Saunders # (Auto) Absolute Neutrophils POC PT > 66.0 H* PT 48.9 H POC INR > 6.0 H* INR 5.0 H VBG Lactic Acid Sodium 128 L Chloride 93 L BUN 33 H Glucose 152 H Calcium 7.2 L Total Bilirubin 1.5 H Direct Bilirubin 0.9 H AST Lactate Dehydrogenase 233 H Total Protein 5.0 L Albumin 2.2 L Albumin/Globulin Ratio 0.8 L Procalcitonin Urine Protein Urine Ketones Hyaline Casts Urine Mucus POC Troponin I 09/21/21 09/21/21 09/20/21 03:21 03:21 06:21 WBC RBC 3.39 L Hgb 10.5 L Hct 32.9 L MPV 10.9 H Neut % (Auto) 93.1 H Lymph % (Auto) 3.4 L Lymph # (Auto) 0.32 L Saunders # (Auto) Absolute Neutrophils 8.76 H POC PT PT 50.2 H POC INR INR 5.2 H VBG Lactic Acid Sodium 131 L Chloride 95 L BUN 27 H Glucose 51 L Calcium 7.4 L Total Bilirubin 1.5 H Direct Bilirubin 0.7 H AST Lactate Dehydrogenase 233 H Total Protein 5.1 L Albumin 2.6 L Albumin/Globulin Ratio Procalcitonin Urine Protein Urine Ketones Hyaline Casts Urine Mucus POC Troponin I 09/20/21 09/20/21 09/19/21 06:21 05:15 17:33 WBC 3.1 L RBC Hgb 11.1 L Hct MPV 11.0 H Neut % (Auto) 83.5 H Lymph % (Auto) 9.4 L Lymph # (Auto) 0.29 L Saunders # (Auto) Absolute Neutrophils POC PT PT 23.1 H POC INR INR 2.0 H VBG Lactic Acid 2.1 H Sodium Chloride BUN Glucose Calcium Total Bilirubin Direct Bilirubin AST Lactate Dehydrogenase Total Protein Albumin Albumin/Globulin Ratio Procalcitonin Urine Protein Urine Ketones Hyaline Casts Urine Mucus POC Troponin I 09/19/21 09/19/21 09/19/21 16:59 16:58 16:58 WBC RBC Hgb Hct MPV Neut % (Auto) Lymph % (Auto) Lymph # (Auto) Saunders # (Auto) Absolute Neutrophils POC PT PT 18.4 H POC INR INR 1.5 H VBG Lactic Acid Sodium Chloride BUN Glucose Calcium Total Bilirubin Direct Bilirubin AST Lactate Dehydrogenase Total Protein Albumin Albumin/Globulin Ratio Procalcitonin 3.77 H Urine Protein 30 mg/dl A Urine Ketones 15 mg/dl A Hyaline Casts 6 H Urine Mucus Few A POC Troponin I 09/19/21 09/19/21 09/19/21 16:58 16:58 16:58 WBC 1.2 L RBC Hgb Hct MPV 11.2 H Neut % (Auto) 82.9 H Lymph % (Auto) 12.0 L Lymph # (Auto) 0.14 L Saunders # (Auto) 0.06 L Absolute Neutrophils 0.97 L* POC PT PT POC INR INR VBG Lactic Acid Sodium 127 L Chloride 89 L BUN 28 H Glucose Calcium 8.1 L Total Bilirubin 1.7 H Direct Bilirubin AST 38 H Lactate Dehydrogenase Total Protein Albumin Albumin/Globulin Ratio Procalcitonin Urine Protein Urine Ketones Hyaline Casts Urine Mucus POC Troponin I 0.01 L Meds: Medications Acetaminophen (Acetaminophen 325 Mg Tablet) 650 mg PO Q4-6HP PRN; Protocol PRN Reason: Per Pain Protocol/Fever > 101 Albuterol/Ipratropium (Ipratropium/Albuterol 3 Ml Ampul.Neb) 3 ml NEB Q4HRT PRN PRN Reason: shortness of breath Chlorhexidine Gluconate (Chlorhexidine Gluconate 1 Ml Oral.Teresita) 15 ml SWABMOUTH BID [facility] Last Admin: 09/22/21 00:28 Dose: 15 ml Documented by: Diagnostic Test (Pha) (Accu-Chek 1 Each Strip) 1 each FS PRN PRN PRN Reason: Blood Sugar - Low Last Admin: 09/21/21 07:12 Dose: 1 each Documented by: Diagnostic Test (Pha) (Accu-Chek 1 Each Strip) 1 each FS Q4 [facility] Last Admin: 09/22/21 05:30 Dose: 1 each Documented by: Fentanyl (Fentanyl 100 Mcg/2 Ml Vial) 25 mcg IV Q1HP PRN; Protocol PRN Reason: Per Pain Protocol Last Admin: 09/22/21 06:54 Dose: 25 mcg Documented by: Hydrocortisone Sodium Succinate (Hydrocortisone Sod Succ 100 Mg Vial) 50 mg IV Q6 [facility] Last Admin: 09/22/21 06:01 Dose: 50 mg Documented by: Piperacillin Sod/Tazobactam (Sod 4.5 gm/ Dextrose) 50 mls @ 100 mls/hr IV Q8H [facility]; Protocol Last Infusion: 09/21/21 22:30 Dose: Infused Documented by: Acetaminophen (Ofirmev) 650 mg in 65 mls @ 130 mls/hr IV Q6HP PRN; Protocol PRN Reason: PAIN/FEVER > 101 Last Infusion: 09/21/21 08:15 Dose: Infused Documented by: Dextrose/Lactated Ringer's (Dextrose 5%-Lactated Ringers) 1,000 mls @ 100 mls/hr IV .Q10H [facility] Last Admin: 09/22/21 03:55 Dose: Not Given Documented by: Thiamine HCl 100 mg/ Sodium (Chloride) 51 mls @ 50 mls/hr IV DAILY [facility] Stop: 09/23/21 10:02 Last Infusion: 09/21/21 09:40 Dose: Infused Documented by: Propofol 1,000 mg/ Premix 100 mls @ 1.691 mls/hr IV .Q24H [facility]; Protocol Last Titration: 09/22/21 04:15 Dose: 15 mcg/kg/min, 5.074 mls/hr Documented by: Albumin Human (Buminate) 12.5 gm in 50 mls @ 100 mls/hr IV ONCE ONE Stop: 09/22/21 02:36 Last Infusion: 09/22/21 03:56 Dose: Infused Documented by: Norepinephrine Bitartrate 16 (mg/ Sodium Chloride) 250 mls @ 9.375 mls/hr IV PRN PRN; Protocol PRN Reason: Blood Pressure - Low Last Titration: 09/22/21 03:40 Dose: 0 mcg/min, 0 mls/hr Documented by: Sodium Chloride (Sodium Chloride 0.9%) 250 mls @ 20 mls/hr IV .[id number] [facility] Last Admin: 09/22/21 03:54 Dose: 20 mls/hr Documented by: Lorazepam (Lorazepam 2 Mg/Ml Vial) 0.5 mg IV Q2HP PRN PRN Reason: ANXIETY/SEDATION Last Admin: 09/22/21 02:47 Dose: 0.5 mg Documented by: Magnesium Hydroxide (Magnesium Hydroxide 30 Ml Oral.Susp) 30 ml PO DAILYP PRN PRN Reason: Constipation Methylnaltrexone [place] (Methylnaltrexone [place] 12 Mg/0.6 Ml Syringe) 12 mg SQ DAILY [facility] Stop: 09/22/21 09:01 Last Admin: 09/21/21 08:35 Dose: 12 mg Documented by: Metoclopramide HCl (Metoclopramide 10 Mg/2 Ml Vial) 10 mg IV Q6 [facility] Last Admin: 09/22/21 06:01 Dose: 10 mg Documented by: Naloxone HCl (Naloxone Hcl 0.4 Mg/Ml Vial) 0.1 mg IV Q2MIN PRN PRN Reason: Opiate Reversal Nitroglycerin (Nitroglycerin 0.4 Mg Tab.Subl) 0.4 mg SL Q5M PRN PRN Reason: Chest Pain Ondansetron HCl (Ondansetron 4 Mg/2 Ml Vial) 4 mg IV Q4-6HP PRN; Protocol PRN Reason: Nausea And Vomiting Last Admin: 09/21/21 12:42 Dose: 4 mg Documented by: Promethazine HCl (Promethazine 25 Mg/Ml Vial) 12.5 mg IV Q4-6HP PRN; Protocol PRN Reason: Nausea And Vomiting Pyridostigmine [place] (Pyridostigmine [place] 10 Mg/2 Ml Ampul) 5 mg IV Q6 [facility] Last Admin: 09/22/21 06:01 Dose: 5 mg Documented by: Sodium Chloride (0.9 % Sodium Chloride 10 Ml Syringe) 10 ml IV Q8 [facility] Last Admin: 09/22/21 06:01 Dose: 10 ml Documented by: A/P Narrative A/P Narrative: A: *Right sigmoid colon volvulus w/obstruction: s/p Ex Lap (09/21) *Remained intubated post surgery: - *Acute hypoxic Respiratory Failure; -down to 1L NC prior to surgery/mechanical ventilation *Severe Sepsis: 2/2 PNA *Pneumonia (suspect aspiration): clinically improving -mrsa screen neg *Hypoglycemia: resolved *Adrenal insuficency: -pt on chr low dose prendisone, recent surgery and now acute infection, Pt remains weak *Hypertension: stable not on home meds at this time, continue to hold *Hypercoagulable state (h/o DVT/PE) / Antiphospholipid syndrome: on warfarin at home *h/o CKD stage 2 *Hyponatremia, present on admission: improving P: -wean off vent and then off o2 as able -IS/Acapella -IVF while intubated -on zosyn, vanco discontinued -stopped home prednisone and started on IV hydrocortisone at 50cc q6hrs (wean) -Gen surgery following -hold home BB for low bp -ST eval -pt/ot -ppx: warfarin per pharm Time Spent With Patient Time: Total time spent is greater than 50% in coordination of care (as documented) at patient's floor/unit and/or counseling patient: QUALITY VTE Deep Vein Thrombosis/Pulmonary Embolism Present on Admission: No
[2021-09-22 07:35] LABS: Basophils # (Auto) 0.04 K/mcL (0.00-0.30); Basophils % (Auto) 0.5 % (0.0-2.0); Eosinophils # (Auto) 0 K/mcL (0.00-0.70); Eosinophils % (Auto) 0 % (0.0-7.0); Hematocrit 18.7 % (34.1-44.9); Hemoglobin 5.9 g/dL (11.2-15.7); Lymphocytes # (Auto) 0.27 K/mcL (1.50-4.80); Lymphocytes % (Auto) 3.7 % (15.5-49.0); Mean Cell Volume 95.4 fL (80.0-100.0); Mean Corpuscular HGB Conc 31.6 g/dL (31.0-36.0); Mean Platelet Volume 11.6 fL (7.4-10.4); Monocytes # (Auto) 0.29 K/mcL (0.10-0.90); Neutrophils % (Auto) 91.8 % (38.0-78.0); Platelet Count 115 K/mcL (140-440); RBC 1.96 M/mcL (3.59-5.38); WBC 7.3 K/mcL (4.5-11.0)
[2021-09-22] MEDS ORDERED: 0.9 % SODIUM CHLORIDE 250 ML IV SCH (07:45)
[2021-09-22 08:11] LABS: ALT/SGPT 10 U/L (<40); AST/SGOT 22 U/L (<32); Albumin 2.7 gm/dL (3.2-5.2); Albumin/Globulin Ratio 1.4 (1.0-2.3); Alkaline Phosphatase 56 U/L (39-117); Bilirubin,Direct 0.6 mg/dL (<0.3); Bilirubin,Total 1.3 mg/dL (0.1-1.0); Blood Urea Nitrogen 31 mg/dL (8-23); Carbon Dioxide 26 mmol/L (22-30); Chloride 98 mmol/L (96-108); Globulin 1.9 gm/dL (2.2-3.7); Glomerular Filtration Rate 91; Glucose 178 mg/dL (70-105); Lactate Dehydrogenase 175 U/L (135-225); Phosphorous 1.4 mg/dL (2.5-4.5); Triglycerides 60 mg/dL (<150); Uric Acid 4.6 mg/dL (2.5-8.0)
[2021-09-22] MEDS: PIPERACILLIN SODIUM/TAZOBACTAM 4.5 GM in DEXTROSE 5% IN WATER 50 ML IV SCH ×3 (08:12→21:59)
[2021-09-22] MEDS ORDERED: POTASSIUM PHOSPHATE 40 MEQ in DEXTROSE 5% IN WATER 500 ML IV ONE (08:39)
[2021-09-22] MEDS: METHYLNALTREXONE BROMIDE 12 MG/0.6 ML SYRINGE SQ SCH (09:09)
[2021-09-22] MEDS: THIAMINE 100 MG in 0.9 % SODIUM CHLORIDE 50 ML IV SCH (09:10)
--- NOTE | 2021-09-22 09:38 | XRay Report ---
CLINICAL INFORMATION: Follow-up infiltrates COMPARISON: None. TECHNIQUE: PA and Lateral views FINDINGS: The heart size, mediastinum and pulmonary vessels are unremarkable. Endotracheal tip is 6 cm above the kayla. Right IJ line tip overlies the SVC right atrial junction. NG tube tip overlying the gastric antrum. Moderate patchy infiltrates in the mid and lower lungs show improved aeration when compared to yesterday's exam. There are no effusions. There may be a small amount right subdiaphragmatic air developing. IMPRESSION: Moderate patchy infiltrates both mid and lower lungs show improved aeration compared to yesterday. Possible free air under the right diaphragm. History of distal colonic obstruction is acknowledged. Suggest upright abdominal films and left decubitus films for better evaluation Interpreted and Authenticated by: Prateek Ngo 09/22/21
[2021-09-22 10:45] LABS: Hematocrit 23.2 % (34.1-44.9); Hemoglobin 7.6 g/dL (11.2-15.7)
[2021-09-22 13:30] LABS: Hematocrit 24.8 % (34.1-44.9); Hemoglobin 8.5 g/dL (11.2-15.7)
--- NOTE | 2021-09-22 14:28 | Brief Operative Note ---
Brief Operative Note Date of procedure: 09/21/21 Pre-op diagnosis: sigmoid colon obstruction;chronic megacolon Post-op diagnosis: other (right colon volvulus and sigmoid colon volvulus with sigmoid obstruction) Procedure: exploratory laparotomy with derotation of right colon and sigmoid colon volv Grafts/Implants: No Anesthesia: GETA Findings: massive dilation of colon extending down to distal sigmoid colon with malrotation of cecum Complications: none Surgeon: Gilles Bond Estimated blood loss (cc): 100 Specimens Removed/Pathology: none sent Condition: critical Disposition: ICU
--- NOTE | 2021-09-22 14:57 | General Surgery Progress Note ---
SUBJECTIVE Subjective Patient information: Note initiated : 09/22/21 at 2:32 pm Service Date, if different from initiated Date: [] Patient: Sima Gómez 70 y/o F admitted on 09/19/21 for SOB, Abdominal Pain. Chief Complaint: [] Principal diagnosis: Colonic pseudoobstruction; slow transit constipation Interval history: Patient is clinically stable. Vital signs have been good since her surgery. She had a breathing trial earlier today but failed and is now on sedation and assisted ventilation. She has had some liquid per rectum with a small amount of stool. Hemoglobin 8.5, hematocrit 24.3, white blood count 7.3. Chest x-ray shows improvement in her bilateral infiltrates. Constitutional Vitals: Vital Signs Temp Pulse Resp BP Pulse Ox 97.5 F 65 16 131/75 88 L 09/22/21 08:01 09/22/21 08:00 09/22/21 14:22 09/22/21 11:31 09/22/21 14:22 Period Temp Pulse Resp BP Sys/Del Rosario Pulse Ox Last 24 Hr 96.4 F-98.2 F 65-83 14-35 82-184/39-97 88-100 Intake and Output 09/22/21 09/22/21 09/22/21 05:59 13:59 21:59 Intake Total 465 1291 124 Output Total 525 155 Balance -60 1136 124 Intake & Output: Intake & Output 09/22/21 09/22/21 09/22/21 05:59 13:59 21:59 Intake Total 465 1291 124 Output Total 525 155 Balance -60 1136 124 Intake: IV 215 1241 124 Sodium Chloride 0.9% 250 ml @ 550 124 20 mls/hr IV .[id number] [facility] Rx#: [id number] Dextrose 5%-Lactated Ringers 1, 92 565 000 ml @ 100 mls/hr IV .Q10H [facility] Rx#:[id number] Levophed 16 mg In Sodium 1 Chloride 0.9% 234 ml @ 10 MCG/ MIN 9.375 mls/hr IV PRN PRN Rx# :[id number] Zosyn 4.5 gm In Dextrose 5% in 50 50 Water 50 ml @ 100 mls/hr IV Q8H [facility] Rx#:[id number] Diprivan 1,000 mg In Premix 1 22 25 Bag @ 5 MCG/KG/MIN 1.691 mls/hr IV .Q24H [facility] Rx#:[id number] Vitamin B1 100 mg In Sodium 51 Chloride 0.9% 50 ml @ 50 mls/hr IV DAILY [facility] Rx#:[id number] Tube Feeding 0 0 Blood Product 250 NG Tube Flush 50 Right Nare 50 Output: Urine Catheter Amount 525 155 Other: Urine Appearance Clear Clear Uretheral (Weber) Sediment Clear Urine Color Dark Yellow Light Shanae Uretheral (Weber) Dark Yellow Light Shanae Urine Odor Normal Stool Size Small Stool Color Brown Stool Consistency Liquid Loose ENT ENT exam: Present mucous membranes moist and normal oropharynx Neck Neck exam: Present full ROM and normal inspection; Absent tenderness Respiratory Respiratory exam: Present normal respiratory exam (Good breath sounds bilaterally) and CTAB Cardiovascular Cardiovascular exam: Present normal rate and rhythm, RRR, +S1 and +S2; Absent JVD GI/Abdominal GI/Abdominal exam: Present diminished bowel sounds (Significant improvement in bowel sounds), distended (Abdominal distention is improved) and tenderness (Mod erate incisional tenderness) Extremities Exam Extremities exam: Present full ROM and neurovascular intact Neurological Exam Additional comments: Intubated and sedated A/P Assessment and plan (1) Cecal volvulus: Status: Acute (2) Volvulus of sigmoid colon: Status: Acute (3) Slow transit constipation: Status: Acute (4) Primary chronic pseudo-obstruction of colon: Status: Acute (5) Bilateral pneumonia: Status: Acute Narrative A/P Narrative: Patient is clinically improved She will be slowly weaned as her strength improves Nasogastric tube will be clamped and she will be given MiraLAX 4 times daily to try to emulsify the right colon stool Time Spent With Patient Time: Total time spent is greater than 50% in coordination of care (as documented) at patient's floor/unit and/or counseling patient:
[2021-09-22] MEDS: 0.9 % SODIUM CHLORIDE 1,000 ML IV SCH (17:45)
[2021-09-22] MEDS: POLYETHYLENE GLYCOL 3350 17 GM PACKET PO SCH (17:51)
[2021-09-22] MEDS ORDERED: LACTATED RINGERS 250 ML IV PRN (17:55)
[2021-09-22] MEDS ORDERED: IOPAMIDOL 100 ML BOTTLE IV ONE (19:17)
[2021-09-22] MEDS ORDERED: PROPOFOL 100 ML IV ONE (20:26)
[2021-09-22] MEDS: IPRATROPIUM/ALBUTEROL 3 ML AMPUL.NEB NEB PRN (23:10)
[2021-09-22] MEDS ORDERED: ACETYLCYSTEINE 800 MG/4 ML VIAL ONE (23:10)
[2021-09-22] MEDS ORDERED: ACETYLCYSTEINE 800 MG/4 ML VIAL NEB ONE (23:23)
[2021-09-23] MEDS: fentaNYL 100 MCG/2 ML VIAL IV PRN ×6 (01:00→21:59)
[2021-09-23] MEDS: HYDROCORTISONE SOD SUCC 100 MG VIAL IV SCH ×4 (01:01→21:58)
[2021-09-23] MEDS: POLYETHYLENE GLYCOL 3350 17 GM PACKET PO SCH ×6 (01:01→23:29)
[2021-09-23] MEDS: PYRIDOSTIGMINE BROMIDE 10 MG/2 ML AMPUL IV SCH ×5 (01:01→23:32)
[2021-09-23] MEDS: METOCLOPRAMIDE 10 MG/2 ML VIAL IV SCH ×5 (01:02→23:29)
[2021-09-23] MEDS: 0.9 % SODIUM CHLORIDE 250 ML IV SCH (02:30)
--- NOTE | 2021-09-23 03:41 | XRay Report ---
CLINICAL INFORMATION: Follow-up bilateral pneumonia COMPARISON: 09/22/2021 TECHNIQUE: PA and Lateral views FINDINGS: The heart size, mediastinum and pulmonary vessels are unremarkable. Lines and tubes in stable satisfactory position. Moderate infiltrates in both mid and lower lungs show continued improvement in aeration. No definite effusion. IMPRESSION: Moderate bilateral mid and lower lung infiltrates continue to improve Interpreted and Authenticated by: Prateek Ngo 09/23/21
[2021-09-23] MEDS: ACETAMINOPHEN 650 MG/65 ML BAG IV PRN ×2 (04:31→11:31)
--- NOTE | 2021-09-23 05:12 | Cat Scan Report ---
CLINICAL INFORMATION: Hypoxia COMPARISON: None. TECHNIQUE: 80ml of Isovue-370 were injected intravenously. Using SmartPrep to maximize pulmonary artery opacification, .625mm helical slices were obtained from the lung apices through the lung bases. Following reconstruction, 2.5 mm sagittal, coronal, and axial reformations were processed. The exam was reviewed at mediastinal, lung, and bone windows. The exam was performed using radiation dose optimization techniques including, but not limited to, automated exposure control, adjustment of the mA and/or kV according to patient size and use of iterative reconstruction technique. FINDINGS: Pulmonary parenchymal windows show moderate patchy alveolar infiltrates in the inferior right lower, right middle and posterior right lower lobes. Moderate consolidated infiltrate in the left upper lobe with patchy infiltrates in the superior segment of the left lower lobe with scattered throughout the posterior left lower lobe noted. Scattered mucus is seen within the lumen of the distal trachea and left mainstem bronchus. Small bilateral pleural effusions noted. Endotracheal tube, right IJ line and NG tube remain in stable satisfactory position. Mediastinal windows show the heart is mildly enlarged with scattered calcific plaque in the coronary arteries.. The pulmonary arteries are normal diameter and well-opacified without evidence of embolus. Thoracic aorta is also normal diameter and well-opacified. There is no adenopathy in the mediastinal, hilar or axillary regions. Esophagus is grossly normal. The thyroid is unremarkable. Bones windows show mild old compression fractures in the lower thoracic spine, but no significant osseous abnormality. Images through the superior abdomen show small amount of free air and moderate simple free fluid: recent abdominal surgery acknowledged. IMPRESSION: 1. No evidence for pulmonary embolus. 2. Moderate scattered bilateral infiltrates-stable since most recent plain film. Suspect infection or, less likely, aspiration. 3. Small bilateral pleural effusions. Interpreted and Authenticated by: Prateek Ngo 09/23/21
[2021-09-23] MEDS: 0.9 % SODIUM CHLORIDE 1,000 ML IV SCH (05:20)
[2021-09-23] MEDS: PIPERACILLIN SODIUM/TAZOBACTAM 4.5 GM in DEXTROSE 5% IN WATER 50 ML IV SCH ×3 (06:19→21:58)
[2021-09-23] MEDS: 0.9 % SODIUM CHLORIDE 10 ML SYRINGE IV SCH ×3 (06:22→20:49)
[2021-09-23 06:54] LABS: INR 1.1 (0.9-1.1); Prothrombin Time 14.7 sec (11.9-14.5)
[2021-09-23 06:56] LABS: Hematocrit 20.8 % (34.1-44.9); Hemoglobin 6.9 g/dL (11.2-15.7); Mean Cell Volume 94.1 fL (80.0-100.0); Mean Corpuscular HGB Conc 33.2 g/dL (31.0-36.0); Mean Platelet Volume 11.2 fL (7.4-10.4); Platelet Count 104 K/mcL (140-440); RBC 2.21 M/mcL (3.59-5.38); Red Cell Distribution Width 14.2 % (11.5-14.5); WBC 11.4 K/mcL (4.5-11.0)
[2021-09-23 07:24] LABS: ALT/SGPT 9 U/L (<40); AST/SGOT 17 U/L (<32); Albumin 2.6 gm/dL (3.2-5.2); Albumin/Globulin Ratio 1.4 (1.0-2.3); Alkaline Phosphatase 66 U/L (39-117); Bilirubin,Direct 0.5 mg/dL (<0.3); Bilirubin,Total 0.9 mg/dL (0.1-1.0); Blood Urea Nitrogen 24 mg/dL (8-23); Calcium 6.6 mg/dL (8.6-10.4); Carbon Dioxide 26 mmol/L (22-30); Chloride 99 mmol/L (96-108); Globulin 1.8 gm/dL (2.2-3.7); Glomerular Filtration Rate 97; Glucose 121 mg/dL (70-105); Lactate Dehydrogenase 210 U/L (135-225); Phosphorous 1.8 mg/dL (2.5-4.5); Triglycerides 80 mg/dL (<150); Uric Acid 3.7 mg/dL (2.5-8.0)
--- NOTE | 2021-09-23 07:54 | Internal Med Progress Note ---
SUBJECTIVE Subjective Patient information: Note initiated : 09/23/21 at 7:51 am Service Date, if different from initiated Date: [] Patient: Sima Gómez a 70 y/o F admitted on 09/19/21 for SOB, Abdominal Pain. Chief Complaint: [] Principal diagnosis: Colonic pseudoobstruction; slow transit constipation Interval history: History of present illness: Ms. Gómez is a 70 year old F With history of inflammatory arthritis, history of DVT antiphospholipid syndrome, on Coumadin for anticoagulation, presents to the emergency room today for evaluation of shortness of breath. The patient had a right shoulder open reduction and internal fixation done a few days ago at this facility. Subsequently she was discharged to a halfway. Over the last 2 days in the halfway the patient has reported progressive shortness of breath, this is associated with cough, subjective sensation of fever, as well as some nausea. The patient does not recollect when her last bowel movement was. Given that she was noted to be hypoxic at the SNF, associated with shortness of breath she was sent to the emergency room for further evaluation. On arrival to the emergency room patient was noted to be hypoxic in the 80s, requiring 4 to 5 L of oxygen to maintain oxygen saturation more than 90%. She was mildly tachycardic and had soft blood pressures. Chest x-ray showed bilateral pneumonia, CT scan of the abdomen pelvis was done which confirms a pneumonia, noted significant stool retention but no acute intra-abdominal pathology, no obstruction. Lab work showed leukopenia, elevated procalcitonin. Patient is going to be a dmitted to the hospital for management of respiratory failure and pneumonia. 09/20 patient seen examined at bed side Oxygen levels stable, oxyge needs are trending down now on 2 L Still has nausea, no bm since yesterday despite enema plan to get CT abdomen pelvis with oral contrast 09/21 Patient seen and examined, overnight events ntoed Enema x 2 tired without much imrpovement, X ray this AM ordered by surgery Hemodynamically remains stable Notes of pain and discomfort in back, belly, Has NG to suction, greenish fluid out 1800cc documented 09/22 Patient went for exploratory laparotomy yesterday found to have sigmoid colon volvulus. She remained intubated postop. And is currently on the ventilator and will wean off sedation and trial CPAP. Hemoglobin low this morning receiving 2 units of blood. Follow-up CBC afterward. 09/23 Patient had instant yesterday evening where she cough several times and then suddenly had increasing oxygen needs. She required 100% for a period of time but subsequently improved back to a reasonably low FiO2. CT of the chest with no PEs but moderate scattered infiltrates and moderate consolidated infiltrate left upper lobe scattered mucus within the lumen of the distal trachea and mainstem bronchus. Anemia worsen again today. No obvious source, will obtain CTA of the abdomen pelvis to rule out any source including peritoneal Patient extubated and doing well. Review of Systems: denies headache/fever/chills/nausea/vomiting/chest or abdominal pain/diarrhea. Otherwise see above. Constitutional Vitals: Vital Signs Temp Pulse Resp BP Pulse Ox 98.2 F 61 18 128/68 99 09/23/21 07:46 09/23/21 07:46 09/23/21 07:46 09/23/21 07:46 09/23/21 07:46 Period Temp Pulse Resp BP Sys/Del Rosario Pulse Ox Last 24 Hr 97.5 F-98.9 F 44-78 12-29 91-147/49-104 81-100 Intake and Output 09/22/21 09/23/21 09/23/21 21:59 05:59 13:59 Intake Total 343 1066 129 Output Total 225 315 175 Balance 118 751 -46 Weight 55.452 kg Intake & Output: Intake & Output 09/22/21 09/23/21 09/23/21 21:59 05:59 13:59 Intake Total 343 1066 129 Output Total 225 315 175 Balance 118 751 -46 Weight 55.452 kg Intake: IV 343 1066 129 Sodium Chloride 0.9% 1,000 ml @ 869 75 mls/hr IV .[id number] [facility] Rx#: [id number] Sodium Chloride 0.9% 250 ml @ 250 75 20 mls/hr IV .[id number] [facility] Rx#: [id number] Zosyn 4.5 gm In Dextrose 5% in 50 50 50 Water 50 ml @ 100 mls/hr IV Q8H [facility] Rx#:[id number] Diprivan 1,000 mg In Premix 1 43 82 4 Bag @ 5 MCG/KG/MIN 1.691 mls/hr IV .Q24H [facility] Rx#:[id number] Tube Feeding 0 Output: Urine Catheter Amount 225 315 175 Other: Urine Appearance Clear Clear Clear Uretheral (Weber) Clear Clear Urine Color Bright Yellow Bright Yellow Light Shanae Uretheral (Weber) Light Shanae Bright Yellow Urine Odor Normal Normal Stool Size Small Stool Color Brown Stool Consistency Liquid Loose Exam: General: Alert, Awake, No acute Distress Eyes/N/T: PERRL, Head/Neck: neck supple, CV: RRR, No murmurs, Pulm: Bibasilar rales, rhonchi left side, diminished, no wheezing Abd: soft, nontender, +BS x4 Ext: no clubbing/cyanosis, trace b/l LE edema Neuro: Alert, no focal deficits, moves all extremities Skin: warm/dry OBJ DATA Labs CBC & Chem 7: 09/23/21 05:00 09/23/21 05:01 Labs: Abnormal Lab Results 09/23/21 09/23/21 09/23/21 05:01 05:01 05:00 WBC 11.4 H RBC 2.21 L Hgb 6.9 L* Hct 20.8 L* Plt Count 104 L MPV 11.2 H Neut % (Auto) Lymph % (Auto) Lymph # (Auto) Absolute Neutrophils POC PT PT 14.7 H POC INR INR Sodium Potassium 2.8 L* Chloride BUN 24 H Creatinine 0.5 L Glucose 121 H Calcium 6.6 L Phosphorus 1.8 L Total Bilirubin Direct Bilirubin 0.5 H Lactate Dehydrogenase Total Protein 4.4 L Albumin 2.6 L Globulin 1.8 L Albumin/Globulin Ratio 09/22/21 09/22/21 09/22/21 12:35 09:36 05:14 WBC RBC Hgb 8.5 L 7.6 L Hct 24.8 L 23.2 L Plt Count MPV Neut % (Auto) Lymph % (Auto) Lymph # (Auto) Absolute Neutrophils POC PT PT POC INR INR Sodium Potassium 3.1 L Chloride BUN 31 H Creatinine Glucose 178 H Calcium 7.0 L Phosphorus 1.4 L Total Bilirubin 1.3 H Direct Bilirubin 0.6 H Lactate Dehydrogenase Total Protein 4.6 L Albumin 2.7 L Globulin 1.9 L Albumin/Globulin Ratio 09/22/21 09/22/21 09/21/21 05:14 05:14 15:39 WBC RBC 1.96 L Hgb 5.9 L* Hct 18.7 L* Plt Count 115 L MPV 11.6 H Neut % (Auto) 91.8 H Lymph % (Auto) 3.7 L Lymph # (Auto) 0.27 L Absolute Neutrophils POC PT PT 16.4 H 48.9 H POC INR INR 1.3 H 5.0 H Sodium Potassium Chloride BUN Creatinine Glucose Calcium Phosphorus Total Bilirubin Direct Bilirubin Lactate Dehydrogenase Total Protein Albumin Globulin Albumin/Globulin Ratio 09/21/21 09/21/21 09/21/21 15:24 03:21 03:21 WBC RBC Hgb Hct Plt Count MPV Neut % (Auto) Lymph % (Auto) Lymph # (Auto) Absolute Neutrophils POC PT > 66.0 H* PT 50.2 H POC INR > 6.0 H* INR 5.2 H Sodium 128 L Potassium Chloride 93 L BUN 33 H Creatinine Glucose 152 H Calcium 7.2 L Phosphorus Total Bilirubin 1.5 H Direct Bilirubin 0.9 H Lactate Dehydrogenase 233 H Total Protein 5.0 L Albumin 2.2 L Globulin Albumin/Globulin Ratio 0.8 L 09/21/21 09/20/21 09/20/21 03:21 06:21 06:21 WBC 3.1 L RBC 3.39 L Hgb 10.5 L 11.1 L Hct 32.9 L Plt Count MPV 10.9 H 11.0 H Neut % (Auto) 93.1 H 83.5 H Lymph % (Auto) 3.4 L 9.4 L Lymph # (Auto) 0.32 L 0.29 L Absolute Neutrophils 8.76 H POC PT PT POC INR INR Sodium 131 L Potassium Chloride 95 L BUN 27 H Creatinine Glucose 51 L Calcium 7.4 L Phosphorus Total Bilirubin 1.5 H Direct Bilirubin 0.7 H Lactate Dehydrogenase 233 H Total Protein 5.1 L Albumin 2.6 L Globulin Albumin/Globulin Ratio 09/20/21 05:15 WBC RBC Hgb Hct Plt Count MPV Neut % (Auto) Lymph % (Auto) Lymph # (Auto) Absolute Neutrophils POC PT PT 23.1 H POC INR INR 2.0 H Sodium Potassium Chloride BUN Creatinine Glucose Calcium Phosphorus Total Bilirubin Direct Bilirubin Lactate Dehydrogenase Total Protein Albumin Globulin Albumin/Globulin Ratio Meds: Medications Acetaminophen (Acetaminophen 325 Mg Tablet) 650 mg PO Q4-6HP PRN; Protocol PRN Reason: Per Pain Protocol/Fever > 101 Acetylcysteine (Acetylcysteine 800 Mg/4 Ml Vial) 400 mg NEB ONCE ONE Stop: 09/22/21 23:24 Last Admin: 09/22/21 23:10 Dose: 400 mg Documented by: Albuterol/Ipratropium (Ipratropium/Albuterol 3 Ml Ampul.Neb) 3 ml NEB Q4HRT PRN PRN Reason: shortness of breath Last Admin: 09/22/21 23:10 Dose: 3 ml Documented by: Chlorhexidine Gluconate (Chlorhexidine Gluconate 1 Ml Oral.Teresita) 15 ml SWABMOUTH BID [facility] Last Admin: 09/22/21 20:24 Dose: 15 ml Documented by: Diagnostic Test (Pha) (Accu-Chek 1 Each Strip) 1 each FS PRN PRN PRN Reason: Blood Sugar - Low Last Admin: 09/21/21 07:12 Dose: 1 each Documented by: Diagnostic Test (Pha) (Accu-Chek 1 Each Strip) 1 each FS Q4 [facility] Last Admin: 09/23/21 07:46 Dose: 1 each Documented by: Fentanyl (Fentanyl 100 Mcg/2 Ml Vial) 25 mcg IV Q1HP PRN; Protocol PRN Reason: Per Pain Protocol Last Admin: 09/23/21 01:00 Dose: 25 mcg Documented by: Hydrocortisone Sodium Succinate (Hydrocortisone Sod Succ 100 Mg Vial) 50 mg IV Q6 [facility] Last Admin: 09/23/21 06:19 Dose: 50 mg Documented by: Piperacillin Sod/Tazobactam (Sod 4.5 gm/ Dextrose) 50 mls @ 100 mls/hr IV Q8H [facility]; Protocol Last Infusion: 09/23/21 07:14 Dose: Infused Documented by: Acetaminophen (Ofirmev) 650 mg in 65 mls @ 130 mls/hr IV Q6HP PRN; Protocol PRN Reason: PAIN/FEVER > 101 Last Infusion: 09/23/21 05:00 Dose: Infused Documented by: Thiamine HCl 100 mg/ Sodium (Chloride) 51 mls @ 50 mls/hr IV DAILY [facility] Stop: 09/23/21 10:02 Last Infusion: 09/22/21 10:13 Dose: Infused Documented by: Propofol 1,000 mg/ Premix 100 mls @ 1.691 mls/hr IV .Q24H [facility]; Protocol Last Titration: 09/23/21 06:15 Dose: 0 mcg/kg/min, 0 mls/hr Documented by: Sodium Chloride (Sodium Chloride 0.9%) 250 mls @ 20 mls/hr IV .[id number] [facility] Last Infusion: 09/23/21 06:15 Dose: 0 mls/hr Documented by: Norepinephrine Bitartrate 16 (mg/ Sodium Chloride) 250 mls @ 9.375 mls/hr IV Q24HP PRN; Protocol PRN Reason: Blood Pressure - Low Sodium Chloride (Sodium Chloride 0.9%) 1,000 mls @ 75 mls/hr IV .[id number] [facility] Last Admin: 09/23/21 05:20 Dose: 75 mls/hr Documented by: Lactated Ringer's (Lactated Ringers) 250 mls @ 0 mls/hr IV Q2HP PRN PRN Reason: Per Urinary Output Lorazepam (Lorazepam 2 Mg/Ml Vial) 0.5 mg IV Q2HP PRN PRN Reason: ANXIETY/SEDATION Last Admin: 09/22/21 02:47 Dose: 0.5 mg Documented by: Magnesium Hydroxide (Magnesium Hydroxide 30 Ml Oral.Susp) 30 ml PO DAILYP PRN PRN Reason: Constipation Metoclopramide HCl (Metoclopramide 10 Mg/2 Ml Vial) 10 mg IV Q6 [facility] Last Admin: 09/23/21 06:19 Dose: 10 mg Documented by: Naloxone HCl (Naloxone Hcl 0.4 Mg/Ml Vial) 0.1 mg IV Q2MIN PRN PRN Reason: Opiate Reversal Nitroglycerin (Nitroglycerin 0.4 Mg Tab.Subl) 0.4 mg SL Q5M PRN PRN Reason: Chest Pain Ondansetron HCl (Ondansetron 4 Mg/2 Ml Vial) 4 mg IV Q4-6HP PRN; Protocol PRN Reason: Nausea And Vomiting Last Admin: 09/21/21 12:42 Dose: 4 mg Documented by: Polyethylene Glycol (Polyethylene Glycol 3350 17 Gm Packet) 17 gm PO Q6H [facility] Stop: 09/23/21 12:01 Last Admin: 09/23/21 06:21 Dose: 17 gm Documented by: Promethazine HCl (Promethazine 25 Mg/Ml Vial) 12.5 mg IV Q4-6HP PRN; Protocol PRN Reason: Nausea And Vomiting Pyridostigmine Parsons (Pyridostigmine Parsons 10 Mg/2 Ml Ampul) 5 mg IV Q6 [facility] Last Admin: 09/23/21 06:19 Dose: 5 mg Documented by: Sodium Chloride (0.9 % Sodium Chloride 10 Ml Syringe) 10 ml IV Q8 [facility] Last Admin: 09/23/21 06:22 Dose: 10 ml Documented by: A/P Narrative A/P Narrative: A: *Right sigmoid colon volvulus w/obstruction: s/p Ex Lap (09/21) *Remained intubated post surgery: -extubated this morning *Acute hypoxic Respiratory Failure; -down to 1L NC prior to surgery/mechanical ventilation, currently 5 post extubation *Severe Sepsis: 2/2 PNA *Pneumonia (suspect Aspiration): clinically improving -mrsa screen neg *Hypoglycemia: resolved *Adrenal insufficiency: -pt on chr low dose prendisone, recent surgery and now acute infection, Pt remains weak *Hypertension: stable not on home meds at this time, continue to hold *Hypercoagulable state (h/o DVT/PE) / Antiphospholipid syndrome: on warfarin at home *h/o CKD stage 2 *Hyponatremia, present on admission: improving *Anemia: P: -IS/Acapella -on zosyn -prn blood transfusion to keep >7, 1 unit today -ct ab/pelv look for source of blood loss -stopped home prednisone and started on IV hydrocortisone (wean) to home prednisone -Gen surgery following -held home BB for low bp -ST eval when able -pt/ot -ppx: warfarin per pharm Time Spent With Patient Time: Total time spent is greater than 50% in coordination of care (as documented) at patient's floor/unit and/or counseling patient: QUALITY VTE Deep Vein Thrombosis/Pulmonary Embolism Present on Admission: No
[2021-09-23] MEDS ORDERED: POTASSIUM PHOSPHATE 40 MEQ in DEXTROSE 5% IN WATER 500 ML IV ONE (08:30)
[2021-09-23] MEDS ORDERED: 0.9 % SODIUM CHLORIDE 1,000 ML IV SCH (09:20)
[2021-09-23] MEDS: CHLORHEXIDINE GLUCONATE 1 ML ORAL.SOL SWABMOUTH SCH ×2 (09:26→20:42)
[2021-09-23] MEDS: THIAMINE 100 MG in 0.9 % SODIUM CHLORIDE 50 ML IV SCH (09:26)
[2021-09-23 09:35] LABS: Lymphocytes % 4 % (15-49); Monocytes % (Manual) 5 % (1-12); Myelocytes % 1 %; Platelet Estimate DECREASED (Normal); RBC Morphology NORMAL (Normal); Segmented Neutrophils % 90 % (38-78)
--- NOTE | 2021-09-23 09:49 | XRay Report ---
CLINICAL INFORMATION: FOLLOW -UP OF LARGE BOWEL OBSTRUCTION. The patient had both a cecal and a sigmoid volvulus which was detorsed. COMPARISON: Preoperative plain film 09/21/2021 FINDINGS: Moderate stool seen within the right and proximal transverse colon which are only mildly dilated. The remainder of the large bowel, small bowel and stomach are decompressed. NG tube tip overlies the gastric body as previously seen. Mild free intraperitoneal-as expected in the postoperative period. Moderate bibasilar infiltrates as previously seen IMPRESSION: Negative abdomen. Moderate bibasilar infiltrates unchanged Interpreted and Authenticated by: Prateek Ngo 09/23/21
--- NOTE | 2021-09-23 10:00 | XRay Report ---
CLINICAL INFORMATION: Follow-up bilateral pneumonia COMPARISON: 09/22/2021 TECHNIQUE: PA and Lateral views FINDINGS: The heart size, mediastinum and pulmonary vessels are unremarkable. Lines and tubes in stable satisfactory position. Infiltrates in both mid and lower lung continued to improve-particularly on the left side which is nearly resolved. No definite effusion. IMPRESSION: Opinion improvement in bilateral mid and lower lung infiltrates particularly on the left is nearly resolved . Interpreted and Authenticated by: Prateek Ngo 09/23/21
[2021-09-23] MEDS ORDERED: guaiFENesin 600 MG TAB.SR.12H PO SCH (10:10)
[2021-09-23] MEDS ORDERED: POTASSIUM CHLORIDE 20 MEQ in 0.9 % SODIUM CHLORIDE 1,000 ML IV SCH (10:39)
[2021-09-23] MEDS ORDERED: SODIUM CHLORIDE INH ONE (10:45)
[2021-09-23] MEDS: NACL 0.9% W/KCL 20MEQ 1,000 ML IV SCH (13:59)
--- NOTE | 2021-09-23 14:23 | General Surgery Progress Note ---
SUBJECTIVE Subjective Patient information: Note initiated : 09/23/21 at 2:18 pm Service Date, if different from initiated Date: [] Patient: Sima Gómez 70 y/o F admitted on 09/19/21 for SOB, Abdominal Pain. Chief Complaint: [] Principal diagnosis: Colonic pseudoobstruction; slow transit constipation Interval history: Patient is gradually improving. She was able to be extubated on this breathing normally at this time with excellent oxygen saturations her abdominal distention is improved. White blood count 11.4, hemoglobin 6.9, hematocrit 20.8, potassium 2.8 creatinine 0.5, BUN 24, PT 14.7, INR 1. Chest x-ray shows improvement infiltrates, more prominent on the left than on. Abdominal films including CT shows decrease in size of right colon with stool slowly progressing to touch proximal transverse colon. Constitutional Vitals: Vital Signs Temp Pulse Resp BP Pulse Ox 98.2 F 54 L 19 135/73 98 09/23/21 12:01 09/23/21 13:31 09/23/21 13:31 09/23/21 13:31 09/23/21 13:31 Period Temp Pulse Resp BP Sys/Del Rosario Pulse Ox Last 24 Hr 97.7 F-98.9 F 44-101 12-29 91-157/49-104 81-100 Intake and Output 09/23/21 09/23/21 09/23/21 05:59 13:59 21:59 Intake Total 1066 2071 420.3145 Output Total 315 775 Balance 751 232 550.9396 Intake & Output: Intake & Output 09/23/21 09/23/21 09/23/21 05:59 13:59 21:59 Intake Total 1066 2210 925.0868 Output Total 315 775 Balance 751 300 492.8846 Intake: IV 1066 324 419.2959 Sodium Chloride 0.9% 1,000 ml @ 869 238 75 mls/hr IV .[id number] [facility] Rx#: [id number] Sodium Chloride 0.9% 250 ml @ 75 20 mls/hr IV .[id number] [facility] Rx#: [id number] Levophed 16 mg In Sodium 0 Chloride 0.9% 234 ml @ 10 MCG/ MIN 9.375 mls/hr IV PRN PRN Rx# :[id number] Zosyn 4.5 gm In Dextrose 5% in 50 50 Water 50 ml @ 100 mls/hr IV Q8H [facility] Rx#:[id number] Potassium Phosphate 40 Meq In 509.0909 Dextrose 5% in Water 500 ml @ 127.273 mls/hr IV ONCE ONE Rx#: [id number] Diprivan 1,000 mg In Premix 1 82 4 Bag @ 5 MCG/KG/MIN 1.691 mls/hr IV .Q24H [facility] Rx#:[id number] Vitamin B1 100 mg In Sodium 51 Chloride 0.9% 50 ml @ 50 mls/hr IV DAILY [facility] Rx#:[id number] Tube Feeding 0 0 Blood Product 330 GI Tube Flush 100 NG Tube Flush 100 Right Nare 100 Output: Urine Catheter Amount 315 775 Other: Urine Appearance Clear Clear Uretheral (Weber) Clear Urine Color Bright Yellow Pale Uretheral (Weber) Bright Yellow Urine Odor Normal Eye Eye exam: Present EOMI Pupils: Present normal accommodation and PERRL ENT ENT exam: Present mucous membranes moist and normal oropharynx Neck Neck exam: Present full ROM and normal inspection; Absent tenderness Respiratory Additional comments: Significant improvement in aeration of both lung marcial though still decreased at the bases Cardiovascular Cardiovascular exam: Present normal rate and rhythm, RRR, +S1 and +S2; Absent JVD GI/Abdominal GI/Abdominal exam: Present diminished bowel sounds, distended (Distention is improved from yesterday) and tenderness (Mild incisional tenderness) Extremities Exam Extremities exam: Present neurovascular intact Neurological Exam Additional comments: Mild mental status depression but responds to simple commands A/P Assessment and plan (1) Cecal volvulus: Status: Acute (2) Volvulus of sigmoid colon: Status: Acute (3) Slow transit constipation: Status: Acute (4) Primary chronic pseudo-obstruction of colon: Status: Acute (5) Bilateral pneumonia: Status: Acute Narrative A/P Narrative: Patient is significantly improved and is making progress daily We will continue MiraLAX daily Follow-up abdominal films in the morning Time Spent With Patient Time: Total time spent is greater than 50% in coordination of care (as documented) at patient's floor/unit and/or counseling patient:
[2021-09-23] MEDS ORDERED: ENOXAPARIN 40 MG/0.4 ML SYRINGE SQ SCH (15:00)
[2021-09-23 15:19] LABS: Hematocrit 27.2 % (34.1-44.9); Hemoglobin 8.9 g/dL (11.2-15.7)
[2021-09-23] MEDS ORDERED: WARFARIN 5 MG TABLET PO ONE (16:00)
--- NOTE | 2021-09-23 16:20 | Cat Scan Report ---
CLINICAL INFORMATION: Evaluate for source of bleeding COMPARISON: 09/20/2021 TECHNIQUE: Axial imaging of the abdomen and pelvis was obtained without contrast. FINDINGS: No acute abnormality of liver spleen pancreas kidneys or adrenal glands. Significant stool present in cecum which is similar to prior examination. Distal colon is more collapsed. No current evidence of small bowel obstruction. Dense fluid is seen in the right paracolic gutter, left paracolic gutter and in the pelvis. The pelvic fluid can be seen to be layering which is suggestive of a hematocrit level. There appears to be at least 500 cc of fluid in the abdomen which was not present on prior examination of 09/20/2021. Ventral incision has been performed since that examination. Minimal postsurgical free intraperitoneal air. Catheter present in urinary bladder. Prominent patchy infiltrates present in lung bases as seen on prior chest CT. Moderate bilateral pleural effusions. IMPRESSION: Dense fluid in both paracolic gutters and pelvis, approximately 500 cc of fluid present. This is concerning for hemorrhage. Source of hemorrhage not seen. Interpreted and Authenticated by: Ez Hammer M.D. 09/23/21
[2021-09-23] MEDS ORDERED: SODIUM CHLORIDE INH PRN (16:25)
[2021-09-23] MEDS: ACETAMINOPHEN 650 MG/65 ML BAG IV SCH ×2 (17:54→23:30)
[2021-09-23 18:54] LABS: Phosphorous 3.2 mg/dL (2.5-4.5)
[2021-09-23] MEDS: IPRATROPIUM/ALBUTEROL 3 ML AMPUL.NEB NEB PRN (19:57)
[2021-09-23] MEDS: PROPOFOL 1,000 MG in PREMIX 1 BAG IV SCH (22:32)
[2021-09-24] MEDS ORDERED: ALBUMIN HUMAN 12.5 GM/50 ML BAG IV ONE ×3 (00:27→15:31)
[2021-09-24] MEDS ORDERED: FUROSEMIDE 20 MG/2 ML VIAL IV ONE ×2 (00:28→00:40)
[2021-09-24] MEDS: hydrALAZINE 20 MG/ML VIAL IV PRN ×2 (00:39→21:01)
[2021-09-24] MEDS ORDERED: hydrALAZINE 20 MG/ML VIAL ONE (00:40)
[2021-09-24] MEDS ORDERED: ALBUMIN HUMAN 50 ML IV ONE (00:41)
[2021-09-24] MEDS: LORazepam 2 MG/ML VIAL IV PRN (01:45)
[2021-09-24] MEDS: IPRATROPIUM/ALBUTEROL 3 ML AMPUL.NEB NEB PRN (02:40)
[2021-09-24 04:02] LABS: Basophils # (Auto) 0.06 K/mcL (0.00-0.30); Basophils % (Auto) 0.3 % (0.0-2.0); Eosinophils # (Auto) 0 K/mcL (0.00-0.70); Eosinophils % (Auto) 0 % (0.0-7.0); Hematocrit 30.3 % (34.1-44.9); Hemoglobin 9.7 g/dL (11.2-15.7); Lymphocytes # (Auto) 0.28 K/mcL (1.50-4.80); Lymphocytes % (Auto) 1.5 % (15.5-49.0); Mean Cell Volume 91.8 fL (80.0-100.0); Mean Platelet Volume 10.8 fL (7.4-10.4); Monocytes # (Auto) 0.81 K/mcL (0.10-0.90); Monocytes % (Auto) 4.2 % (1.0-12.0); Platelet Count 120 K/mcL (140-440); WBC 19.3 K/mcL (4.5-11.0)
[2021-09-24 04:13] LABS: INR 1.7 (0.9-1.1); Prothrombin Time 20.6 sec (11.9-14.5)
[2021-09-24 04:20] LABS: ALT/SGPT 16 U/L (<40); AST/SGOT 32 U/L (<32); Albumin 3.1 gm/dL (3.2-5.2); Albumin/Globulin Ratio 1.4 (1.0-2.3); Alkaline Phosphatase 105 U/L (39-117); Bilirubin,Direct 0.5 mg/dL (<0.3); Bilirubin,Total 0.8 mg/dL (0.1-1.0); Blood Urea Nitrogen 21 mg/dL (8-23); Calcium 6.7 mg/dL (8.6-10.4); Carbon Dioxide 26 mmol/L (22-30); Chloride 103 mmol/L (96-108); Globulin 2.2 gm/dL (2.2-3.7); Glomerular Filtration Rate 97; Glucose 183 mg/dL (70-105); Lactate Dehydrogenase 319 U/L (135-225); Triglycerides 96 mg/dL (<150); Uric Acid 3.6 mg/dL (2.5-8.0)
[2021-09-24] MEDS: NACL 0.9% W/KCL 20MEQ 1,000 ML IV SCH ×2 (04:33→09:21)
[2021-09-24] MEDS: PIPERACILLIN SODIUM/TAZOBACTAM 4.5 GM in DEXTROSE 5% IN WATER 50 ML IV SCH ×3 (05:18→21:36)
[2021-09-24] MEDS: ACETAMINOPHEN 650 MG/65 ML BAG IV SCH ×4 (05:21→23:53)
[2021-09-24] MEDS: POLYETHYLENE GLYCOL 3350 17 GM PACKET PO SCH ×4 (05:45→23:54)
[2021-09-24] MEDS: METOCLOPRAMIDE 10 MG/2 ML VIAL IV SCH ×4 (05:45→23:54)
[2021-09-24] MEDS: PYRIDOSTIGMINE BROMIDE 10 MG/2 ML AMPUL IV SCH ×4 (05:46→23:55)
[2021-09-24] MEDS: 0.9 % SODIUM CHLORIDE 10 ML SYRINGE IV SCH ×3 (05:47→22:38)
[2021-09-24] MEDS: HYDROCORTISONE SOD SUCC 100 MG VIAL IV SCH ×3 (05:47→21:37)
[2021-09-24] MEDS ORDERED: TPN PER PHARMACY IV SCH (07:03)
--- NOTE | 2021-09-24 07:07 | Internal Med Progress Note ---
SUBJECTIVE Subjective Patient information: Note initiated : 09/24/21 at 7:03 am Service Date, if different from initiated Date: [] Patient: Sima Gómez a 70 y/o F admitted on 09/19/21 for SOB, Abdominal Pain. Chief Complaint: [] Principal diagnosis: Colonic pseudoobstruction; slow transit constipation Interval history: History of present illness: Ms. Gómez is a 70 year old F With history of inflammatory arthritis, history of DVT antiphospholipid syndrome, on Coumadin for anticoagulation, presents to the emergency room today for evaluation of shortness of breath. The patient had a right shoulder open reduction and internal fixation done a few days ago at this facility. Subsequently she was discharged to a alf. Over the last 2 days in the alf the patient has reported progressive shortness of breath, this is associated with cough, subjective sensation of fever, as well as some nausea. The patient does not recollect when her last bowel movement was. Given that she was noted to be hypoxic at the SNF, associated with shortness of breath she was sent to the emergency room for further evaluation. On arrival to the emergency room patient was noted to be hypoxic in the 80s, requiring 4 to 5 L of oxygen to maintain oxygen saturation more than 90%. She was mildly tachycardic and had soft blood pressures. Chest x-ray showed bilateral pneumonia, CT scan of the abdomen pelvis was done which confirms a pneumonia, noted significant stool retention but no acute intra-abdominal pathology, no obstruction. Lab work showed leukopenia, elevated procalcitonin. Patient is going to be a dmitted to the hospital for management of respiratory failure and pneumonia. 09/20 patient seen examined at bed side Oxygen levels stable, oxyge needs are trending down now on 2 L Still has nausea, no bm since yesterday despite enema plan to get CT abdomen pelvis with oral contrast 09/21 Patient seen and examined, overnight events ntoed Enema x 2 tired without much imrpovement, X ray this AM ordered by surgery Hemodynamically remains stable Notes of pain and discomfort in back, belly, Has NG to suction, greenish fluid out 1800cc documented 09/22 Patient went for exploratory laparotomy yesterday found to have sigmoid colon volvulus. She remained intubated postop. And is currently on the ventilator and will wean off sedation and trial CPAP. Hemoglobin low this morning receiving 2 units of blood. Follow-up CBC afterward. 09/23 Patient had instant yesterday evening where she cough several times and then suddenly had increasing oxygen needs. She required 100% for a period of time but subsequently improved back to a reasonably low FiO2. CT of the chest with no PEs but moderate scattered infiltrates and moderate consolidated infiltrate left upper lobe scattered mucus within the lumen of the distal trachea and mainstem bronchus. Anemia worsen again today. No obvious source, will obtain CTA of the abdomen pelvis to rule out any source including peritoneal Patient extubated and doing well. 09/24 Patient required increased oxygen last night placed on the BiPAP as well as for hypercapnia with ABG with acidotic and hypercapnic. give a dose of albumin with Lasix with improved urine output. Was on 50% FiO2 when I arrived with good sats decreased to 40%. Follow-up ABG improved this morning. Chest x-ray worsened with bilateral infiltrates. Suspect pulmonary edema. Elevated BNP and echo pending. Review of Systems: denies headache/fever/chills/nausea/vomiting/chest or abdominal pain/diarrhea. Otherwise see above. Constitutional Vitals: Vital Signs Temp Pulse Resp BP Pulse Ox 97.3 F 79 22 132/88 100 09/24/21 03:01 09/24/21 06:05 09/24/21 06:05 09/24/21 06:01 09/24/21 06:05 Period Temp Pulse Resp BP Sys/Del Rosario Pulse Ox Last 24 Hr 97.3 F-98.5 F 35-101 18-36 93-168/62-99 78-100 Intake and Output 09/23/21 09/24/21 09/24/21 21:59 05:59 13:59 Intake Total 964.0909 655 365 Output Total 575 310 100 Balance 389.0909 345 265 Intake & Output: Intake & Output 09/23/21 09/24/21 09/24/21 21:59 05:59 13:59 Intake Total 964.0909 655 365 Output Total 575 310 100 Balance 389.0909 345 265 Intake: IV 624.0909 415 115 Lactated Ringers 250 ml @ Wide 250 Open IV Q2HP PRN Rx#:[id number] Zosyn 4.5 gm In Dextrose 5% in 50 50 50 Water 50 ml @ 100 mls/hr IV Q8H SHELBY Rx#:[id number] Potassium Phosphate 40 Meq In 509.0909 Dextrose 5% in Water 500 ml @ 127.273 mls/hr IV ONCE ONE Rx#: [id number] Tube Feeding 0 GI Tube Flush 340 200 Other 40 250 Output: Urine Catheter Amount 575 250 100 Void Amount 60 Other: Urine Appearance Clear Clear Clear Uretheral (Weber) Clear Clear Urine Color Dark Yellow Bright Yellow Bright Yellow Uretheral (Weber) Bright Yellow Bright Yellow Urine Odor Normal Normal Exam: General: Alert, Awake, No acute Distress Eyes/N/T: PERRL, Head/Neck: neck supple, CV: RRR, No murmurs, Pulm: fine rales on left, better aeration than previously, no wheezing Abd: soft, nontender, decreased BS x4 Ext: no clubbing/cyanosis, trace b/l LE edema Neuro: Alert, no focal deficits, moves all extremities Skin: warm/dry OBJ DATA Labs CBC & Chem 7: 09/24/21 03:20 09/24/21 03:20 Labs: Abnormal Lab Results 09/24/21 09/24/21 09/24/21 03:20 03:20 03:20 WBC 19.3 H RBC 3.30 L Hgb 9.7 L Hct 30.3 L RDW 16.0 H Plt Count 120 L MPV 10.8 H Neut % (Auto) 94.0 H Lymph % (Auto) 1.5 L Lymph # (Auto) 0.28 L Seg Neutrophils % Lymphocytes % Absolute Neutrophils 18.12 H Platelet Estimate POC PT PT 20.6 H POC INR INR 1.7 H Sodium Potassium Chloride BUN Creatinine 0.5 L Glucose 183 H Calcium 6.7 L Phosphorus Total Bilirubin Direct Bilirubin 0.5 H GGT 47 H AST 32 H Lactate Dehydrogenase 319 H Total Protein 5.3 L Albumin 3.1 L Globulin Albumin/Globulin Ratio 09/23/21 09/23/21 09/23/21 14:48 05:01 05:01 WBC RBC Hgb 8.9 L Hct 27.2 L RDW Plt Count MPV Neut % (Auto) Lymph % (Auto) Lymph # (Auto) Seg Neutrophils % Lymphocytes % Absolute Neutrophils Platelet Estimate POC PT PT 14.7 H POC INR INR Sodium Potassium 2.8 L* Chloride BUN 24 H Creatinine 0.5 L Glucose 121 H Calcium 6.6 L Phosphorus 1.8 L Total Bilirubin Direct Bilirubin 0.5 H GGT AST Lactate Dehydrogenase Total Protein 4.4 L Albumin 2.6 L Globulin 1.8 L Albumin/Globulin Ratio 09/23/21 09/22/21 09/22/21 05:00 12:35 09:36 WBC 11.4 H RBC 2.21 L Hgb 6.9 L* 8.5 L 7.6 L Hct 20.8 L* 24.8 L 23.2 L RDW Plt Count 104 L MPV 11.2 H Neut % (Auto) Lymph % (Auto) Lymph # (Auto) Seg Neutrophils % 90 H Lymphocytes % 4 L Absolute Neutrophils Platelet Estimate Decreased A POC PT PT POC INR INR Sodium Potassium Chloride BUN Creatinine Glucose Calcium Phosphorus Total Bilirubin Direct Bilirubin GGT AST Lactate Dehydrogenase Total Protein Albumin Globulin Albumin/Globulin Ratio 09/22/21 09/22/21 09/22/21 05:14 05:14 05:14 WBC RBC 1.96 L Hgb 5.9 L* Hct 18.7 L* RDW Plt Count 115 L MPV 11.6 H Neut % (Auto) 91.8 H Lymph % (Auto) 3.7 L Lymph # (Auto) 0.27 L Seg Neutrophils % Lymphocytes % Absolute Neutrophils Platelet Estimate POC PT PT 16.4 H POC INR INR 1.3 H Sodium Potassium 3.1 L Chloride BUN 31 H Creatinine Glucose 178 H Calcium 7.0 L Phosphorus 1.4 L Total Bilirubin 1.3 H Direct Bilirubin 0.6 H GGT AST Lactate Dehydrogenase Total Protein 4.6 L Albumin 2.7 L Globulin 1.9 L Albumin/Globulin Ratio 09/21/21 09/21/21 09/21/21 15:39 15:24 03:21 WBC RBC Hgb Hct RDW Plt Count MPV Neut % (Auto) Lymph % (Auto) Lymph # (Auto) Seg Neutrophils % Lymphocytes % Absolute Neutrophils Platelet Estimate POC PT > 66.0 H* PT 48.9 H POC INR > 6.0 H* INR 5.0 H Sodium 128 L Potassium Chloride 93 L BUN 33 H Creatinine Glucose 152 H Calcium 7.2 L Phosphorus Total Bilirubin 1.5 H Direct Bilirubin 0.9 H GGT AST Lactate Dehydrogenase 233 H Total Protein 5.0 L Albumin 2.2 L Globulin Albumin/Globulin Ratio 0.8 L 09/21/21 09/21/21 03:21 03:21 WBC RBC 3.39 L Hgb 10.5 L Hct 32.9 L RDW Plt Count MPV 10.9 H Neut % (Auto) 93.1 H Lymph % (Auto) 3.4 L Lymph # (Auto) 0.32 L Seg Neutrophils % Lymphocytes % Absolute Neutrophils 8.76 H Platelet Estimate POC PT PT 50.2 H POC INR INR 5.2 H Sodium Potassium Chloride BUN Creatinine Glucose Calcium Phosphorus Total Bilirubin Direct Bilirubin GGT AST Lactate Dehydrogenase Total Protein Albumin Globulin Albumin/Globulin Ratio Meds: Medications Acetaminophen (Acetaminophen 325 Mg Tablet) 650 mg PO Q4-6HP PRN; Protocol PRN Reason: Per Pain Protocol/Fever > 101 Albuterol/Ipratropium (Ipratropium/Albuterol 3 Ml Ampul.Neb) 3 ml NEB Q4HRT PRN PRN Reason: shortness of breath Last Admin: 09/24/21 02:40 Dose: 3 ml Documented by: Chlorhexidine Gluconate (Chlorhexidine Gluconate 1 Ml Oral.Teresita) 15 ml SWABMOUTH BID [facility] Last Admin: 09/23/21 20:42 Dose: 15 ml Documented by: Diagnostic Test (Pha) (Accu-Chek 1 Each Strip) 1 each FS PRN PRN PRN Reason: Blood Sugar - Low Last Admin: 09/21/21 07:12 Dose: 1 each Documented by: Diagnostic Test (Pha) (Accu-Chek 1 Each Strip) 1 each FS Q4 [facility] Last Admin: 09/24/21 04:34 Dose: 1 each Documented by: Fentanyl (Fentanyl 100 Mcg/2 Ml Vial) 12.5 mcg IV Q1HP PRN; Protocol PRN Reason: Per Pain Protocol Last Admin: 09/23/21 21:59 Dose: 12.5 mcg Documented by: Furosemide (Furosemide 20 Mg/2 Ml Vial) 20 mg IV ONCE ONE Stop: 09/24/21 00:29 Last Admin: 09/24/21 00:39 Dose: 20 mg Documented by: Guaifenesin (Guaifenesin 100 Mg/5 Ml Oral Teresita) 400 mg PO Q4 [facility] Last Admin: 09/24/21 04:34 Dose: 400 mg Documented by: Hydralazine HCl (Hydralazine 20 Mg/Ml Vial) 10 - 20 mg IV Q2HP PRN PRN Reason: Hypertension Last Admin: 09/24/21 00:39 Dose: 10 mg Documented by: Hydrocortisone Sodium Succinate (Hydrocortisone Sod Succ 100 Mg Vial) 50 mg IV Q8 [facility] Last Admin: 09/24/21 05:47 Dose: 50 mg Documented by: Piperacillin Sod/Tazobactam (Sod 4.5 gm/ Dextrose) 50 mls @ 100 mls/hr IV Q8H [facility]; Protocol Last Infusion: 09/24/21 06:07 Dose: Infused Documented by: Propofol 1,000 mg/ Premix 100 mls @ 1.691 mls/hr IV .Q24H SHELBY; Protocol Last Admin: 09/23/21 22:32 Dose: Not Given Documented by: Norepinephrine Bitartrate 16 (mg/ Sodium Chloride) 250 mls @ 9.375 mls/hr IV Q24HP PRN; Protocol PRN Reason: Blood Pressure - Low Lactated Ringer's (Lactated Ringers) 250 mls @ 0 mls/hr IV Q2HP PRN PRN Reason: Per Urinary Output Last Infusion: 09/24/21 04:32 Dose: Infused Documented by: Potassium Chloride/Sodium Chloride (Nacl 0.9% W/Kcl 20meq 1000ml) 1,000 mls @ 65 mls/hr IV .[id number] [facility] Last Admin: 09/24/21 04:33 Dose: Not Given Documented by: Acetaminophen (Ofirmev) 650 mg in 65 mls @ 130 mls/hr IV Q6 [facility]; Protocol Last Infusion: 09/24/21 06:06 Dose: Infused Documented by: Albumin Human (Buminate) 12.5 gm in 50 mls @ 100 mls/hr IV ONCE ONE Stop: 09/24/21 00:56 Last Infusion: 09/24/21 01:46 Dose: Infused Documented by: Lorazepam (Lorazepam 2 Mg/Ml Vial) 0.5 mg IV Q2HP PRN PRN Reason: ANXIETY/SEDATION Last Admin: 09/24/21 01:45 Dose: 0.5 mg Documented by: Magnesium Hydroxide (Magnesium Hydroxide 30 Ml Oral.Susp) 30 ml PO DAILYP PRN PRN Reason: Constipation Metoclopramide HCl (Metoclopramide 10 Mg/2 Ml Vial) 10 mg IV Q6 [facility] Last Admin: 09/24/21 05:45 Dose: 10 mg Documented by: Naloxone HCl (Naloxone Hcl 0.4 Mg/Ml Vial) 0.1 mg IV Q2MIN PRN PRN Reason: Opiate Reversal Nitroglycerin (Nitroglycerin 0.4 Mg Tab.Subl) 0.4 mg SL Q5M PRN PRN Reason: Chest Pain Ondansetron HCl (Ondansetron 4 Mg/2 Ml Vial) 4 mg IV Q4-6HP PRN; Protocol PRN Reason: Nausea And Vomiting Last Admin: 09/21/21 12:42 Dose: 4 mg Documented by: Polyethylene Glycol (Polyethylene Glycol 3350 17 Gm Packet) 17 gm PO Q6 SHELBY Stop: 09/25/21 16:09 Last Admin: 09/24/21 05:45 Dose: 17 gm Documented by: Promethazine HCl (Promethazine 25 Mg/Ml Vial) 12.5 mg IV Q4-6HP PRN; Protocol PRN Reason: Nausea And Vomiting Pyridostigmine [place] (Pyridostigmine [place] 10 Mg/2 Ml Ampul) 5 mg IV Q6 [facility] Last Admin: 09/24/21 05:46 Dose: 5 mg Documented by: Sodium Chloride (0.9 % Sodium Chloride 10 Ml Syringe) 10 ml IV Q8 [facility] Last Admin: 09/24/21 05:47 Dose: 10 ml Documented by: Sodium Chloride (Sodium Chloride For Inhalation 15 Ml Vial.Neb) 15 ml INH Q4HP PRN PRN Reason: Congestion Warfarin Sodium (Warfarin Per Pharmacy) 1 order PO UD SHELBY A/P Narrative A/P Narrative: A: *Right sigmoid colon volvulus w/obstruction: s/p Ex Lap (09/21) *Remained intubated post surgery: -extubated 09/23 *Acute hypoxic Respiratory Failure: suspect pulm edema -required bipap o/n *Severe Sepsis: 09/24 PNA *Pneumonia (suspect Aspiration): -mrsa screen neg *Oropharyngeal Dysphagia: *Hypoglycemia: resolved *Adrenal insufficiency: -pt on chr low dose prendisone, recent surgery and now acute infection, Pt remains weak *Hypertension: *Hypercoagulable state (h/o DVT/PE) / Antiphospholipid syndrome: on warfarin at home *h/o CKD stage 2 *Hyponatremia, present on admission: improving *Anemia: *Hypokal/phos: improved P: -IS/Acapella -on zosyn -prn blood transfusion to keep >7, -f/u CT ?hematoma -check bnp given hypoxia/infiltrate, check cvp -wean IV hydrocortisone (wean) to home prednisone -Gen surgery following -restart home atenolol -ST eval when able -pt/ot -NPO per ST, started on TPN -ppx: warfarin per pharm / ppi Time Spent With Patient Time: Total time spent is greater than 50% in coordination of care (as documented) at patient's floor/unit and/or counseling patient: QUALITY VTE Deep Vein Thrombosis/Pulmonary Embolism Present on Admission: No
[2021-09-24] MEDS: fentaNYL 100 MCG/2 ML VIAL IV PRN ×2 (07:36→21:02)
[2021-09-24 08:15] LABS: Anisocytosis 1+ (None Seen); Band Neutrophils % 3 % (0-10); Lymphocytes % 3 % (15-49); Monocytes % (Manual) 3 % (1-12); Myelocytes % 2 %; Nucleated Red Blood Cells 1 % (0-0); Platelet Estimate DECREASED (Normal); RBC Morphology ABNORMAL (Normal); Reactive Lymphocytes 1 % (0-2); Segmented Neutrophils % 88 % (38-78)
[2021-09-24] MEDS ORDERED: FUROSEMIDE 40 MG/4 ML VIAL IV ONE ×2 (08:36→15:31)
[2021-09-24] MEDS ORDERED: DEXTROSE 50% 50 ML SYRINGE IV PRN (08:56)
[2021-09-24] MEDS ORDERED: [UNRECOGNIZED DRUG - OTHER] IV SCH (09:00)
[2021-09-24] MEDS ORDERED: ENOXAPARIN 40 MG/0.4 ML SYRINGE SQ SCH (09:00)
[2021-09-24] MEDS ORDERED: POTASSIUM CHLORIDE IV SCH ×2 (09:00→16:00)
[2021-09-24] MEDS ORDERED: MAGNESIUM SULFATE IV SCH ×2 (09:00→16:00)
[2021-09-24] MEDS ORDERED: CALCIUM GLUCONATE IV SCH ×2 (09:00→16:00)
[2021-09-24] MEDS: PANTOPRAZOLE 40 MG VIAL IV SCH (09:26)
--- NOTE | 2021-09-24 09:38 | XRay Report ---
CLINICAL INFORMATION: Follow-up infiltrates COMPARISON: 09/23/2021 TECHNIQUE: Portable FINDINGS: The heart is mildly enlarged but unchanged. Mediastinum and pulmonary vasculature are normal. Endotracheal tube appears to been removed. The NG and right IJ line in stable satisfactory position. Moderate bilateral mid and lower lung infiltrates have worsened considerably now demonstrating dense consolidation. Small bilateral pleural effusions have progressed. Small amount of free air under the right diaphragm related to recent abdominal surgery. IMPRESSION: Moderate consolidated infiltrates in both mid and lower lungs have progressed from yesterday Interpreted and Authenticated by: Prateek Ngo 09/24/21
[2021-09-24] MEDS: CHLORHEXIDINE GLUCONATE 1 ML ORAL.SOL SWABMOUTH SCH ×2 (10:56→21:34)
[2021-09-24] MEDS: ATENOLOL 25 MG TABLET PO SCH (10:56)
--- NOTE | 2021-09-24 12:14 | XRay Report ---
CLINICAL INFORMATION: FOLLOW -UP OF LARGE BOWEL OBSTRUCTION cecal volvulus and sigmoid volvulus which were reduced COMPARISON: None. FINDINGS: NG tube overlies the gastric body. Weber catheter overlies the urinary bladder. Urinary bladder is distended. Stool gas pattern appears normal. Stomach and small and large bowel are relatively decompressed. Free air has cleared. IMPRESSION: Normal stool gas pattern no evidence recurrent bowel obstruction. Moderate urinary bladder distention despite Weber catheter placement. Weber catheter may not be functional. Interpreted and Authenticated by: Prateek Ngo 09/24/21
[2021-09-24] MEDS: INSULIN LISPRO 1 UNIT/0.01 ML UNIT SQ SCH ×3 (14:03→23:58)
--- NOTE | 2021-09-24 14:49 | General Surgery Progress Note ---
SUBJECTIVE Subjective Patient information: Note initiated : 09/24/21 at 2:48 pm Service Date, if different from initiated Date: [] Patient: Sima Gómez 70 y/o F admitted on 09/19/21 for SOB, Abdominal Pain. Chief Complaint: [] Principal diagnosis: Colonic pseudoobstruction; slow transit constipation Interval history: Patient had some respiratory compromise during the night. This is related to third space volume return with pulmonary edema. Her BNP is over 21,000. Chest x-ray shows increased infiltrate which is a combination of interstitial and alveolar infiltrate due to residual pneumonia and pulmonary edema. She has already received albumin and Lasix and I think she will benefit from more aggressive diuresis. Abdominal x-ray shows gradual movement of stool into the left colon with no evidence of intestinal obstruction. Constitutional Vitals: Vital Signs Temp Pulse Resp BP Pulse Ox 97 F 86 35 H 146/87 95 09/24/21 08:01 09/24/21 14:09 09/24/21 14:09 09/24/21 14:00 09/24/21 14:09 Period Temp Pulse Resp BP Sys/Del Rosario Pulse Ox Last 24 Hr 97 F-98.0 F 35-100 20-40 93-168/62-99 78-100 Intake and Output 09/24/21 09/24/21 09/24/21 05:59 13:59 21:59 Intake Total 655 415 Output Total 310 900 125 Balance 345 -485 -125 Weight 122 lb 4 oz Patient Weight 09/25/21 05:59 Weight 122 lb 4 oz Intake & Output: Intake & Output 09/24/21 09/24/21 09/24/21 05:59 13:59 21:59 Intake Total 655 415 Output Total 310 900 125 Balance 345 -485 -125 Weight 122 lb 4 oz Intake: IV 415 165 Lactated Ringers 250 ml @ Wide 250 Open IV Q2HP PRN Rx#:[id number] Zosyn 4.5 gm In Dextrose 5% in 50 50 Water 50 ml @ 100 mls/hr IV Q8H SHELBY Rx#:[id number] Tube Feeding 0 GI Tube Flush 200 Other 40 250 Output: Urine Catheter Amount 250 900 125 Void Amount 60 Other: Urine Appearance Clear Clear Clear Uretheral (Weber) Clear Clear Urine Color Bright Yellow Pale Pale Uretheral (Weber) Bright Yellow Bright Yellow Urine Odor Normal Normal Normal Uretheral (Weber) Normal Eye Eye exam: Present EOMI Pupils: Present normal accommodation and PERRL ENT ENT exam: Present mucous membranes moist and normal oropharynx Neck Neck exam: Present full ROM and normal inspection Respiratory Respiratory exam: Present decreased breath sounds, rales and rhonchi Additional comments: Coarse tubular breath sounds throughout both lung marcial with decreased breath sounds at the bases bilaterally Cardiovascular Cardiovascular exam: Present normal rate and rhythm, RRR, +S1 and +S2 GI/Abdominal GI/Abdominal exam: Present normal bowel sounds and distended; Absent tenderness Extremities Exam Extremities exam: Present pedal edema (1+ pedal edema) and neurovascular intact Neurological Exam Neurological exam: Present oriented X3 Psychiatric Psychiatric exam: Present depressed and flat affect A/P Assessment and plan (1) Volvulus of sigmoid colon: Status: Acute (2) Cecal volvulus: Status: Acute (3) Slow transit constipation: Status: Acute (4) Primary chronic pseudo-obstruction of colon: Status: Acute (5) Bilateral pneumonia: Status: Acute (6) Pulmonary edema: Status: Acute Narrative A/P Narrative: Continue present therapy Follow-up abdominal x-rays in the morning Time Spent With Patient Time: Total time spent is greater than 50% in coordination of care (as documented) at patient's floor/unit and/or counseling patient:
[2021-09-24] MEDS ORDERED: IOPAMIDOL 100 ML BOTTLE IV ONE (15:35)
[2021-09-24] MEDS ORDERED: FAT EMULSION 20% 250 ML in PREMIX 1 BAG IV SCH (16:00)
[2021-09-24] MEDS ORDERED: [UNRECOGNIZED DRUG - OTHER] IV SCH (16:00)
--- NOTE | 2021-09-24 18:35 | Cat Scan Report ---
CLINICAL INFORMATION: Hemorrhage. Shortness of breath COMPARISON: None. TECHNIQUE: Following enteric contrast, 80 cc of Isovue-370 were injected intravenously, and 60 seconds later, 0.625 mm helical slices were obtained from the mid heart through the subtrochanteric regions. Following reconstruction, 2.5 mm sagittal, coronal and axial reformatted images were processed and reviewed at bone, lung and soft tissue windows. Five minutes later, 0.625 mm helical slices were obtained from the mid heart through the kidneys and viewed at soft tissue windows.The exam was performed using radiation dose optimization techniques including, but not limited to, automated exposure control, adjustment of the mA and/or kV according to patient size and use of iterative reconstruction technique. FINDINGS: Lung bases show moderate consolidated infiltrates in the visualized lower lobes, right middle lobe and lingula. These have worsened slightly. Moderate bilateral pleural effusions also progressed. Heart is moderately enlarged with heavy calcification in the mitral valve and also heavy calcific plaque in the coronary arteries. Abdominal images show liver, gallbladder, bile ducts, pancreas and both adrenal glands are normal. The spleen is diminutive-as previously seen. There is mild bilateral renal atrophy: The left kidney is 8.6 cm in length and the right kidney is 9 cm in length. A moderate acute infarct, in the inferior pole of the left kidney, is new. The aorta is normal diameter. Aortic branches enhance chronic plaque however there is no active extravasation from the aortic branches. Moderate free intraperitoneal fluid throughout the abdomen and pelvis is increased modestly. Most of the fluid is simple with the exception of left paracolic gutter which shows increased attenuation compatible with hemoperitoneum. There is an acute bleeding source data was likely in this region There is no adenopathy or free air. The stomach, small and large bowel are grossly normal mild postoperative ileus. Pelvic images show Weber catheter malposition in the posterior female urethra. Urinary bladder is noted. Bone windows show no osseous abnormality IMPRESSION: 1. Moderate free intraperitoneal fluid has increased. A hemoperitoneum component in the left paracolic gutter is likely the source of blood loss. The exact site of bleeding cannot be ascertained-no evidence of active extravasation. 2. Moderate infarct in the inferior pole the left kidney. Mild bilateral renal atrophy. 3. Diminutive spleen. 4. Large alveolar infiltrates in both visualized inferior lower lobes, lingula and right middle lobe have worsened. Moderate bilateral pleural effusions also increasing. 5. Mild ileus. No evidence of recurrent bowel obstruction. 6. Large amount of edema in the subcutaneous soft tissues throughout the abdomen and pelvis which is increased 7. Malpositioned Weber catheter with the balloon in the posterior female urethra. Nurses were instructed deflate the balloon and advanced the catheter. Interpreted and Authenticated by: Prateek Ngo 09/24/21
[2021-09-24] MEDS ORDERED: WARFARIN 3 MG TABLET PO ONE (19:06)
[2021-09-24] MEDS ORDERED: ALBUMIN HUMAN 12.5 GM/50 ML BAG IV PRN (19:08)
[2021-09-25] MEDS: LORazepam 2 MG/ML VIAL IV PRN (00:49)
[2021-09-25] MEDS: INSULIN LISPRO 1 UNIT/0.01 ML UNIT SQ SCH ×3 (05:41→18:07)
[2021-09-25] MEDS: ACETAMINOPHEN 650 MG/65 ML BAG IV SCH ×3 (05:56→18:08)
[2021-09-25] MEDS: POLYETHYLENE GLYCOL 3350 17 GM PACKET PO SCH ×2 (05:56→16:05)
[2021-09-25] MEDS: METOCLOPRAMIDE 10 MG/2 ML VIAL IV SCH ×3 (05:57→18:08)
[2021-09-25] MEDS: 0.9 % SODIUM CHLORIDE 10 ML SYRINGE IV SCH ×2 (05:58→16:07)
[2021-09-25] MEDS: HYDROCORTISONE SOD SUCC 100 MG VIAL IV SCH ×2 (05:58→16:07)
[2021-09-25] MEDS: PYRIDOSTIGMINE BROMIDE 10 MG/2 ML AMPUL IV SCH ×3 (05:58→18:08)
[2021-09-25] MEDS: PIPERACILLIN SODIUM/TAZOBACTAM 4.5 GM in DEXTROSE 5% IN WATER 50 ML IV SCH ×2 (05:59→16:08)
[2021-09-25 07:09] LABS: Basophils % (Auto) 0.5 % (0.0-2.0); Eosinophils # (Auto) 0 K/mcL (0.00-0.70); Eosinophils % (Auto) 0 % (0.0-7.0); Hematocrit 30.6 % (34.1-44.9); Hemoglobin 9.6 g/dL (11.2-15.7); Lymphocytes # (Auto) 0.51 K/mcL (1.50-4.80); Lymphocytes % (Auto) 2.7 % (15.5-49.0); Mean Cell Volume 92.4 fL (80.0-100.0); Mean Corpuscular HGB Conc 31.4 g/dL (31.0-36.0); Mean Platelet Volume 11.6 fL (7.4-10.4); Monocytes # (Auto) 0.62 K/mcL (0.10-0.90); Monocytes % (Auto) 3.3 % (1.0-12.0); Neutrophils % (Auto) 93.5 % (38.0-78.0); Platelet Count 128 K/mcL (140-440); RBC 3.31 M/mcL (3.59-5.38); Red Cell Distribution Width 15.9 % (11.5-14.5)
[2021-09-25] MEDS: PANTOPRAZOLE 40 MG VIAL IV SCH (07:19)
--- NOTE | 2021-09-25 07:43 | Internal Med Progress Note ---
SUBJECTIVE Subjective Patient information: Note initiated : 09/25/21 at 7:33 am Service Date, if different from initiated Date: [] Patient: Sima Gómez a 70 y/o F admitted on 09/19/21 for SOB, Abdominal Pain. Chief Complaint: [] Principal diagnosis: Colonic pseudoobstruction; slow transit constipation Interval history: History of present illness: Ms. Gómez is a 70 year old F With history of inflammatory arthritis, history of DVT antiphospholipid syndrome, on Coumadin for anticoagulation, presents to the emergency room today for evaluation of shortness of breath. The patient had a right shoulder open reduction and internal fixation done a few days ago at this facility. Subsequently she was discharged to a senior care. Over the last 2 days in the senior care the patient has reported progressive shortness of breath, this is associated with cough, subjective sensation of fever, as well as some nausea. The patient does not recollect when her last bowel movement was. Given that she was noted to be hypoxic at the SNF, associated with shortness of breath she was sent to the emergency room for further evaluation. On arrival to the emergency room patient was noted to be hypoxic in the 80s, requiring 4 to 5 L of oxygen to maintain oxygen saturation more than 90%. She was mildly tachycardic and had soft blood pressures. Chest x-ray showed bilateral pneumonia, CT scan of the abdomen pelvis was done which confirms a pneumonia, noted significant stool retention but no acute intra-abdominal pathology, no obstruction. Lab work showed leukopenia, elevated procalcitonin. Patient is going to be a dmitted to the hospital for management of respiratory failure and pneumonia. 09/20 patient seen examined at bed side Oxygen levels stable, oxyge needs are trending down now on 2 L Still has nausea, no bm since yesterday despite enema plan to get CT abdomen pelvis with oral contrast 09/21 Patient seen and examined, overnight events ntoed Enema x 2 tired without much imrpovement, X ray this AM ordered by surgery Hemodynamically remains stable Notes of pain and discomfort in back, belly, Has NG to suction, greenish fluid out 1800cc documented 09/22 Patient went for exploratory laparotomy yesterday found to have sigmoid colon volvulus. She remained intubated postop. And is currently on the ventilator and will wean off sedation and trial CPAP. Hemoglobin low this morning receiving 2 units of blood. Follow-up CBC afterward. 09/23 Patient had instant yesterday evening where she cough several times and then suddenly had increasing oxygen needs. She required 100% for a period of time but subsequently improved back to a reasonably low FiO2. CT of the chest with no PEs but moderate scattered infiltrates and moderate consolidated infiltrate left upper lobe scattered mucus within the lumen of the distal trachea and mainstem bronchus. Anemia worsen again today. No obvious source, will obtain CTA of the abdomen pelvis to rule out any source including peritoneal Patient extubated and doing well. 09/24 Patient required increased oxygen last night placed on the BiPAP as well as for hypercapnia with ABG with acidotic and hypercapnic. give a dose of albumin with Lasix with improved urine output. Was on 50% FiO2 when I arrived with good sats decreased to 40%. Follow-up ABG improved this morning. Chest x-ray worsened with bilateral infiltrates. Suspect pulmonary edema. Elevated BNP and echo pending. 09/25 Patient required more oxygen overnight. Less responsive. Adequate urine output but decreasing again this morning. Family at bedside. Review of Systems: Patient unresponsive Constitutional Vitals: Vital Signs Temp Pulse Resp BP Pulse Ox 97.9 F 87 35 H 97/72 100 09/25/21 04:00 09/25/21 06:21 09/25/21 06:21 09/25/21 06:00 09/25/21 06:21 Period Temp Pulse Resp BP Sys/[place] Pulse Ox Last 24 Hr 97 F-98.3 F 66-100 24-45 97-158/69-106 84-100 Intake and Output 09/24/21 09/25/21 09/25/21 21:59 05:59 13:59 Intake Total 840 825 Output Total 865 640 40 Balance -25 185 -40 Intake & Output: Intake & Output 09/24/21 09/25/21 09/25/21 21:59 05:59 13:59 Intake Total 840 825 Output Total 865 640 40 Balance -25 185 -40 Intake: IV 600 365 Calcium Gluconate 5 Meq 370 Magnesium Sulfate 8.12 Meq Potassium Chloride 40 Meq Sodium Chloride 20 Meq In Clinimix 5%-20% Solution 1,000 ml @ 50 mls/hr IV Q20H [facility] Rx#: [id number] Intralipid 20% 250 ml In Premix 250 1 Bag @ 25 mls/hr IV WeSa@1600 [facility] Rx#:[id number] Zosyn 4.5 gm In Dextrose 5% in 50 50 Water 50 ml @ 100 mls/hr IV Q8H [facility] Rx#:[id number] Tube Feeding 0 200 GI Tube Flush 240 Other 260 Output: Urine Catheter Amount 865 640 Void Amount 40 Other: Urine Appearance Clear Clear Urine Color Pale Bright Yellow Urine Odor Normal Normal Stool Size Small Large Stool Color Brown Brown Stool Consistency Soft Soft Loose # Bowel Movements 1 1 Exam: General: No acute Distress Eyes/N/T: PERRL, Head/Neck: neck supple, CV: RRR, No murmurs, Pulm: severely diminished left side, better aeration on right, no wheezing Abd: soft, nontender, decreased BS x4 Ext: no clubbing/cyanosis, trace b/l LE edema, dependent edema in hips Neuro: Alert, no focal deficits, moves all extremities Skin: warm/dry OBJ DATA Labs CBC & Chem 7: 09/25/21 05:58 09/25/21 05:58 Labs: Abnormal Lab Results 09/25/21 09/24/21 09/24/21 05:58 09:16 03:20 WBC 19.0 H RBC 3.31 L Hgb 9.6 L Hct 30.6 L RDW 15.9 H Plt Count 128 L MPV 11.6 H Neut % (Auto) 93.5 H Lymph % (Auto) 2.7 L Lymph # (Auto) 0.51 L Seg Neutrophils % 88 H Lymphocytes % 3 L Absolute Neutrophils 17.76 H Nucleated RBCs 1 H Platelet Estimate Decreased A RBC Morphology Abnormal A Anisocytosis 1+ A PT INR Potassium BUN Creatinine Glucose Calcium Phosphorus Total Bilirubin Direct Bilirubin GGT AST Lactate Dehydrogenase NT-Pro-B Natriuret Pep Total Protein Albumin Globulin Prealbumin 8.0 L 09/24/21 09/24/21 09/24/21 03:20 03:20 03:20 WBC 19.3 H RBC 3.30 L Hgb 9.7 L Hct 30.3 L RDW 16.0 H Plt Count 120 L MPV 10.8 H Neut % (Auto) 94.0 H Lymph % (Auto) 1.5 L Lymph # (Auto) 0.28 L Seg Neutrophils % Lymphocytes % Absolute Neutrophils 18.12 H Nucleated RBCs Platelet Estimate RBC Morphology Anisocytosis PT INR Potassium BUN Creatinine 0.5 L Glucose 183 H Calcium 6.7 L Phosphorus Total Bilirubin Direct Bilirubin 0.5 H GGT 47 H AST 32 H Lactate Dehydrogenase 319 H NT-Pro-B Natriuret Pep 93281.0 H Total Protein 5.3 L Albumin 3.1 L Globulin Prealbumin 09/24/21 09/23/21 09/23/21 03:20 14:48 05:01 WBC RBC Hgb 8.9 L Hct 27.2 L RDW Plt Count MPV Neut % (Auto) Lymph % (Auto) Lymph # (Auto) Seg Neutrophils % Lymphocytes % Absolute Neutrophils Nucleated RBCs Platelet Estimate RBC Morphology Anisocytosis PT 20.6 H INR 1.7 H Potassium 2.8 L* BUN 24 H Creatinine 0.5 L Glucose 121 H Calcium 6.6 L Phosphorus 1.8 L Total Bilirubin Direct Bilirubin 0.5 H GGT AST Lactate Dehydrogenase NT-Pro-B Natriuret Pep Total Protein 4.4 L Albumin 2.6 L Globulin 1.8 L Prealbumin 09/23/21 09/23/21 09/22/21 05:01 05:00 12:35 WBC 11.4 H RBC 2.21 L Hgb 6.9 L* 8.5 L Hct 20.8 L* 24.8 L RDW Plt Count 104 L MPV 11.2 H Neut % (Auto) Lymph % (Auto) Lymph # (Auto) Seg Neutrophils % 90 H Lymphocytes % 4 L Absolute Neutrophils Nucleated RBCs Platelet Estimate Decreased A RBC Morphology Anisocytosis PT 14.7 H INR Potassium BUN Creatinine Glucose Calcium Phosphorus Total Bilirubin Direct Bilirubin GGT AST Lactate Dehydrogenase NT-Pro-B Natriuret Pep Total Protein Albumin Globulin Prealbumin 09/22/21 09/22/21 09/22/21 09:36 05:14 05:14 WBC RBC 1.96 L Hgb 7.6 L 5.9 L* Hct 23.2 L 18.7 L* RDW Plt Count 115 L MPV 11.6 H Neut % (Auto) 91.8 H Lymph % (Auto) 3.7 L Lymph # (Auto) 0.27 L Seg Neutrophils % Lymphocytes % Absolute Neutrophils Nucleated RBCs Platelet Estimate RBC Morphology Anisocytosis PT INR Potassium 3.1 L BUN 31 H Creatinine Glucose 178 H Calcium 7.0 L Phosphorus 1.4 L Total Bilirubin 1.3 H Direct Bilirubin 0.6 H GGT AST Lactate Dehydrogenase NT-Pro-B Natriuret Pep Total Protein 4.6 L Albumin 2.7 L Globulin 1.9 L Prealbumin Meds: Medications Acetaminophen (Acetaminophen 325 Mg Tablet) 650 mg PO Q4-6HP PRN; Protocol PRN Reason: Per Pain Protocol/Fever > 101 Albuterol/Ipratropium (Ipratropium/Albuterol 3 Ml Ampul.Neb) 3 ml NEB Q4HRT PRN PRN Reason: shortness of breath Last Admin: 09/24/21 02:40 Dose: 3 ml Documented by: Atenolol (Atenolol 25 Mg Tablet) 25 mg PO QDAY [facility] Last Admin: 09/24/21 10:56 Dose: 25 mg Documented by: Chlorhexidine Gluconate (Chlorhexidine Gluconate 1 Ml Oral.Teresita) 15 ml SWABMOUTH BID [facility] Last Admin: 09/24/21 21:34 Dose: 15 ml Documented by: Dextrose (Dextrose 50% 50 Ml Syringe) 50 ml IV UD PRN PRN Reason: Hypoglycemia Diagnostic Test (Pha) (Accu-Chek 1 Each Strip) 1 each FS PRN PRN PRN Reason: Blood Sugar - Low Last Admin: 09/21/21 07:12 Dose: 1 each Documented by: Diagnostic Test (Pha) (Accu-Chek 1 Each Strip) 1 each FS Q6 [facility] Last Admin: 09/25/21 05:40 Dose: 1 each Documented by: Fentanyl (Fentanyl 100 Mcg/2 Ml Vial) 12.5 mcg IV Q1HP PRN; Protocol PRN Reason: Per Pain Protocol Last Admin: 09/24/21 21:02 Dose: 12.5 mcg Documented by: Guaifenesin (Guaifenesin 100 Mg/5 Ml Oral Teresita) 400 mg PO Q4 [facility] Last Admin: 09/25/21 07:19 Dose: 400 mg Documented by: Hydralazine HCl (Hydralazine 20 Mg/Ml Vial) 10 - 20 mg IV Q2HP PRN PRN Reason: Hypertension Last Admin: 09/24/21 21:01 Dose: 10 mg Documented by: Hydrocortisone Sodium Succinate (Hydrocortisone Sod Succ 100 Mg Vial) 25 mg IV Q8 [facility] Last Admin: 09/25/21 05:58 Dose: 25 mg Documented by: Piperacillin Sod/Tazobactam (Sod 4.5 gm/ Dextrose) 50 mls @ 100 mls/hr IV Q8H [facility]; Protocol Last Admin: 09/25/21 05:59 Dose: 100 mls/hr Documented by: Norepinephrine Bitartrate 16 (mg/ Sodium Chloride) 250 mls @ 9.375 mls/hr IV Q24HP PRN; Protocol PRN Reason: Blood Pressure - Low Acetaminophen (Ofirmev) 650 mg in 65 mls @ 130 mls/hr IV Q6 [facility]; Protocol Last Admin: 09/25/21 05:56 Dose: 130 mls/hr Documented by: Potassium Chloride/Sodium Chloride (Nacl 0.9% W/Kcl 20meq 1000ml) 1,000 mls @ 15 mls/hr IV .Q24H [facility] Last Admin: 09/24/21 09:21 Dose: 15 mls/hr Documented by: Calcium Gluconate 5 meq/Magnesium Sulfate 8.12 meq/Potassium Chloride 40 meq/Amino Acids 1,032.7526 mls @ 50 mls/hr IV Q20H [facility] Last Admin: 09/24/21 16:16 Dose: 50 mls/hr Documented by: Fat Emulsion Intravenous 250 (ml/ Premix) 250 mls @ 25 mls/hr IV WeSa@1600 [facility] Last Infusion: 09/25/21 03:58 Dose: Infused Documented by: Albumin Human (Buminate) 12.5 gm in 50 mls @ 100 mls/hr IV PRN PRN PRN Reason: Urine output<30mls/hr x2hrs. Insulin Human Lispro (Insulin Lispro 1 Unit/0.01 Ml Unit) 0 unit SQ Q6 [facility]; Protocol Last Admin: 09/25/21 05:41 Dose: 6 unit Documented by: Lorazepam (Lorazepam 2 Mg/Ml Vial) 0.5 mg IV Q2HP PRN PRN Reason: ANXIETY/SEDATION Last Admin: 09/25/21 00:49 Dose: 0.5 mg Documented by: Magnesium Hydroxide (Magnesium Hydroxide 30 Ml Oral.Susp) 30 ml PO DAILYP PRN PRN Reason: Constipation Metoclopramide HCl (Metoclopramide 10 Mg/2 Ml Vial) 10 mg IV Q6 [facility] Last Admin: 09/25/21 05:57 Dose: 10 mg Documented by: Naloxone HCl (Naloxone Hcl 0.4 Mg/Ml Vial) 0.1 mg IV Q2MIN PRN PRN Reason: Opiate Reversal Nitroglycerin (Nitroglycerin 0.4 Mg Tab.Subl) 0.4 mg SL Q5M PRN PRN Reason: Chest Pain Ondansetron HCl (Ondansetron 4 Mg/2 Ml Vial) 4 mg IV Q4-6HP PRN; Protocol PRN Reason: Nausea And Vomiting Last Admin: 09/21/21 12:42 Dose: 4 mg Documented by: Pantoprazole Sodium (Pantoprazole 40 Mg Vial) 40 mg IV QAMAC [facility] Last Admin: 09/25/21 07:19 Dose: 40 mg Documented by: Polyethylene Glycol (Polyethylene Glycol 3350 17 Gm Packet) 17 gm PO Q6 [facility] Stop: 09/25/21 16:09 Last Admin: 09/25/21 05:56 Dose: 17 gm Documented by: Promethazine HCl (Promethazine 25 Mg/Ml Vial) 12.5 mg IV Q4-6HP PRN; Protocol PRN Reason: Nausea And Vomiting Pyridostigmine Chambers (Pyridostigmine Chambers 10 Mg/2 Ml Ampul) 5 mg IV Q6 [facility] Last Admin: 09/25/21 05:58 Dose: 5 mg Documented by: Sodium Chloride (0.9 % Sodium Chloride 10 Ml Syringe) 10 ml IV Q8 [facility] Last Admin: 09/25/21 05:58 Dose: 10 ml Documented by: Sodium Chloride (Sodium Chloride For Inhalation 15 Ml Vial.Neb) 15 ml INH Q4HP PRN PRN Reason: Congestion Warfarin Sodium (Warfarin Per Pharmacy) 1 order PO UD [facility] A/P Narrative A/P Narrative: A: *Right sigmoid colon volvulus w/obstruction: s/p Ex Lap (09/21) *Remained intubated post surgery: -extubated 09/23 *Acute hypoxic Respiratory Failure: 2/2 mucous plugging/Aspiration/pulm edema -requires intermittent bipap *Severe Sepsis: 2/2 PNA *Pneumonia (Aspiration): -mrsa screen neg -CXR worse on left *Severe Oropharyngeal Dysphagia: and likely not clearing secretions *Hypoglycemia: resolved *Adrenal insufficiency: -pt on chr low dose prendisone, recent surgery and now acute infection, Pt remains weak *Hypertension: *Hypercoagulable state (h/o DVT/PE) / Antiphospholipid syndrome: on warfarin at home *h/o CKD stage 2 *Hyponatremia, present on admission: improved *Anemia, acute on chronic blood loss: stable, received 2prbc after surgery over 24hrs *Hypokal/phos: improved *Thrombocytopenia: stable *Goals of care: have had several discussions with family P: -extremely guarded prognosis, continue family discussions -Wean bipap/O2 as able, difficult given poor respiratory effort/aspiration -IS/Acapella -on zosyn -IV lasix -prn blood transfusion to keep >7, -wean IV hydrocortisone (wean) to home prednisone -Gen surgery following -cont home atenolol -ST eval when able; NPO per ST, started on TPN -pt/ot -ppx: warfarin per pharm / ppi DNR Time Spent With Patient Time: Total time spent is greater than 50% in coordination of care (as documented) at patient's floor/unit and/or counseling patient: QUALITY VTE Deep Vein Thrombosis/Pulmonary Embolism Present on Admission: No
[2021-09-25 08:26] LABS: INR 4.9 (0.9-1.1); Prothrombin Time 48.1 sec (11.9-14.5)
[2021-09-25 08:34] LABS: Blood Urea Nitrogen 25 mg/dL (8-23); Calcium 6.7 mg/dL (8.6-10.4); Carbon Dioxide 28 mmol/L (22-30); Chloride 102 mmol/L (96-108); Glomerular Filtration Rate 91; Glucose 188 mg/dL (70-105)
[2021-09-25] MEDS ORDERED: FUROSEMIDE 40 MG/4 ML VIAL IV ONE (08:42)
[2021-09-25] MEDS ORDERED: ALBUMIN HUMAN 12.5 GM/50 ML BAG IV ONE (08:42)
[2021-09-25] MEDS ORDERED: CALCIUM GLUCONATE 4.65 MEQ/10 ML VIAL IV ONE (08:46)
[2021-09-25] MEDS ORDERED: SODIUM CHLORIDE 0.9% IV ONE (09:00)
[2021-09-25] MEDS ORDERED: CALCIUM GLUCONATE IV ONE (09:00)
[2021-09-25] MEDS ORDERED: POTASSIUM CHLORIDE 20 MEQ/15 ML ML PT ONE (09:05)
[2021-09-25] MEDS ORDERED: POTASSIUM CHLORIDE 40 MEQ in DEXTROSE 5% IN WATER 250 ML IV ONE (09:07)
[2021-09-25 09:31] LABS: ALT/SGPT 14 U/L (<40); AST/SGOT 23 U/L (<32); Albumin 2.9 gm/dL (3.2-5.2); Albumin/Globulin Ratio 1.3 (1.0-2.3); Alkaline Phosphatase 84 U/L (39-117); Bilirubin,Direct 0.3 mg/dL (<0.3); Bilirubin,Total 0.5 mg/dL (0.1-1.0); Blood Urea Nitrogen 25 mg/dL (8-23); Calcium 6.6 mg/dL (8.6-10.4); Carbon Dioxide 27 mmol/L (22-30); Chloride 101 mmol/L (96-108); Globulin 2.2 gm/dL (2.2-3.7); Glomerular Filtration Rate 87; Glucose 186 mg/dL (70-105); Lactate Dehydrogenase 343 U/L (135-225); Phosphorous 1.4 mg/dL (2.5-4.5); Triglycerides 47 mg/dL (<150); Uric Acid 3.5 mg/dL (2.5-8.0)
--- NOTE | 2021-09-25 09:33 | XRay Report ---
CLINICAL INFORMATION: Follow-up infiltrates COMPARISON: 09/24/2021 TECHNIQUE: PA and Lateral views FINDINGS: Right IJ and NG tube in stable satisfactory position. Moderate cardiomegaly is stable. Mediastinum and pulmonary vessels are normal. Large dense consolidated infiltrate left mid and lower lung with moderate left pleural effusion as worsened considerably since yesterday. Moderate right basilar infiltrate shows improved aeration IMPRESSION: Large dense consolidated infiltrate in the left mid and lower lung with moderate left pleural effusion-worsening from yesterday Moderate right lower lung infiltrate shows slight improvement Interpreted and Authenticated by: Prateek Ngo 09/25/21
--- NOTE | 2021-09-25 09:38 | XRay Report ---
CLINICAL INFORMATION: FOLLOW -UP OF LARGE BOWEL OBSTRUCTION COMPARISON: None. FINDINGS: NG tube tip in stable position overlying the gastric antrum. The stomach and small large bowel are decompressed with only minimal GI tract gas appreciated. No evidence recurrent obstruction. Moderate ascites seen in the true pelvis. No free air. IMPRESSION: Decompressed GI tract. No evidence recurrent bowel obstruction Moderate ascites Interpreted and Authenticated by: Prateek Ngo 09/25/21
[2021-09-25] MEDS ORDERED: METOPROLOL TARTRATE 5 MG/5 ML VIAL IV ONE (10:59)
[2021-09-25] MEDS ORDERED: [UNRECOGNIZED DRUG - OTHER] IV SCH (11:00)
[2021-09-25] MEDS ORDERED: POTASSIUM CHLORIDE IV SCH (11:00)
[2021-09-25] MEDS ORDERED: CALCIUM GLUCONATE IV SCH (11:00)
[2021-09-25] MEDS ORDERED: NOREPINEPHRINE BITARTRATE 16 MG in 0.9 % SODIUM CHLORIDE 234 ML IV SCH (11:00)
[2021-09-25] MEDS ORDERED: MAGNESIUM SULFATE IV SCH (11:00)
--- NOTE | 2021-09-25 11:57 | Death Note ---
Discharge Sum: Prov Provider Patient information: Note initiated : 09/25/21 at 11:55 am Service Date, if different from initiated Date: [] Patient: Sima Gómez 70 y/o F admitted on 09/19/21 for SOB, Abdominal Pain. Chief Complaint: [] Primary care physician: Rhona Skinner Consults: 09/19/21 Consult to Physician [CONS] Stat Comment: Consulting Provider: Alfonso Carpio Reason For Exam: Physician to Consult 09/20/21 16:23 Consult to Physician [CONS] Routine Comment: partial SBO, colonic dilatation. Consulting Provider: Gilles Bond Reason For Exam: Physician to Consult Discharge Sum: Diag Contributing Factors (1) Volvulus of sigmoid colon: (2) Cecal volvulus: (3) Slow transit constipation: (4) Primary chronic pseudo-obstruction of colon: (5) Bilateral pneumonia: (6) Pulmonary edema: Discharge Sum: Summary Date and Time Date of admission: 09/19/21 23:53 Summary Details: History of present illness: Ms. Gómez is a 70 year old F With history of inflammatory arthritis, history of DVT antiphospholipid syndrome, on Coumadin for anticoagulation, presents to the emergency room today for evaluation of shortness of breath. The patient had a right shoulder open reduction and internal fixation done a few days ago at this facility. Subsequently she was discharged to a retirement. Over the last 2 days in the retirement the patient has reported progressive shortness of breath, this is associated with cough, subjective sensation of fever, as well as some nausea. The patient does not recollect when her last bowel movement was. Given that she was noted to be hypoxic at the SNF, associated with shortness of breath she was sent to the emergency room for further evaluation. On arrival to the emergency room patient was noted to be hypoxic in the 80s, requiring 4 to 5 L of oxygen to maintain oxygen saturation more than 90%. She was mildly tachycardic and had soft blood pressures. Chest x-ray showed bilateral pneumonia, CT scan of the abdomen pelvis was done which confirms a pneumonia, noted significant stool retention but no acute intra-abdominal pathology, no obstruction. Lab work showed leukopenia, elevated procalcitonin. Patient is going to be admitted to the hospital for management of respiratory failure and pneumonia. 09/20 patient seen examined at bed side Oxygen levels stable, oxyge needs are trending down now on 2 L Still has nausea, no bm since yesterday despite enema plan to get CT abdomen pelvis with oral contrast 09/21 Patient seen and examined, overnight events ntoed Enema x 2 tired without much imrpovement, X ray this AM ordered by surgery Hemodynamically remains stable Notes of pain and discomfort in back, belly, Has NG to suction, greenish fluid out 1800cc documented 09/22 Patient went for exploratory laparotomy yesterday found to have sigmoid colon volvulus. She remained intubated postop. And is currently on the ventilator and will wean off sedation and trial CPAP. Hemoglobin low this morning receiving 2 units of blood. Follow-up CBC afterward. 09/23 Patient had instant yesterday evening where she cough several times and then suddenly had increasing oxygen needs. She required 100% for a period of time but subsequently improved back to a reasonably low FiO2. CT of the chest with no PEs but moderate scattered infiltrates and moderate consolidated infiltrate left upper lobe scattered mucus within the lumen of the distal trachea and mainstem bronchus. Anemia worsen again today. No obvious source, will obtain CTA of the abdomen pelvis to rule out any source including peritoneal Patient extubated and doing well. 09/24 Patient required increased oxygen last night placed on the BiPAP as well as for hypercapnia with ABG with acidotic and hypercapnic. give a dose of albumin with Lasix with improved urine output. Was on 50% FiO2 when I arrived with good sats decreased to 40%. Follow-up ABG improved this morning. Chest x-ray worsened with bilateral infiltrates. Suspect pulmonary edema. Elevated BNP and echo pending. 09/25 Patient required more oxygen overnight. Less responsive. Adequate urine output but decreasing again this morning. Family at bedside. Patient has continued to worsen over the past few days. She was hypercapnic was placed on BiPAP with some improvement this a.m. patient not clearing oral secretions and chest x-ray with white out of left lung. Not responsive to Lasix with past 24 hours for third spacing. She went into V. tach and self converted out but went back into arrythmia and subsequent hypotension. At that time with family at bedside decided to transition to comfort care. Patient with family present at 1125. A: *Right sigmoid colon volvulus w/obstruction: s/p Ex Lap (09/21) *Acute hypoxic Respiratory Failure: 2/2 mucous plugging/recurrent Aspiration/pulm edema *Pneumonia (Aspiration): *Severe Sepsis: 2/2 PNA *Severe Oropharyngeal Dysphagia: not clearing secretions *Hypoglycemia: resolved *Adrenal insufficiency: *Hypertension: *Hypercoagulable state (h/o DVT/PE) / Antiphospholipid syndrome: on warfarin at home *h/o CKD stage 2 *Hyponatremia, present on admission: improved *Anemia, acute on chronic blood loss: stable, received 2prbc after surgery over 24hrs *Hypokal/phos: improved *Thrombocytopenia: stable *Goals of care discussions with family Additional Data Attending physician: Alfonso Carpio
[2021-09-25] MEDS ORDERED: POTASSIUM PHOSPHATE 40 MEQ in DEXTROSE 5% IN WATER 500 ML IV ONE (14:00)
[2021-09-25] MEDS ORDERED: NEUTRA PHOS 1 PACKET PO SCH (15:00)
[2021-09-25] MEDS ORDERED: FUROSEMIDE 40 MG/4 ML VIAL IV SCH (16:00)
[2021-09-25] MEDS: CHLORHEXIDINE GLUCONATE 1 ML ORAL.SOL SWABMOUTH SCH (16:03)
[2021-09-25] MEDS: ATENOLOL 25 MG TABLET PO SCH (16:04)
[2021-09-25] MEDS: METOPROLOL TARTRATE 5 MG/5 ML VIAL IV SCH ×2 (17:11→17:12)
[2021-09-25] MEDS: NACL 0.9% W/KCL 20MEQ 1,000 ML IV SCH (17:12)
[2021-09-25] MEDS ORDERED: POTASSIUM CHLORIDE 20 MEQ/15 ML ML PT SCH (17:30)
--- NOTE | 2021-10-01 15:05 | Operative Note ---
DATE OF OPERATION: 09/21/2021 PREOPERATIVE DIAGNOSES: Sigmoid colon obstruction, chronic megacolon. POSTOPERATIVE DIAGNOSES: Chronic megacolon with right colon volvulus of the sigmoid colon volvulus with sigmoid total obstruction. PROCEDURE: Exploratory laparotomy with derotation of the right colon and sigmoid colon volvulus with plication. SURGEON: Gilles Bond M.D. FINDINGS: Massive dilation of the colon extending down to the distal sigmoid colon with malrotation and volvulus of the cecum and sigmoid. DESCRIPTION OF PROCEDURE: Under general anesthesia, the patient's abdomen was prepped and draped in a sterile field. Timeout procedure was carried out as per protocol. A midline incision was made. The bowel was massively dilated. Care was taken not to injure the bowel as the peritoneum was entered. Once the peritoneum was entered, there was a large volume of serous fluid that was suctioned. Because of the massive size of the bowel, the incision had to be extended proximally and distally. Once the peritoneum was opened, I was gradually able to remove some of the bowel in the mid abdomen from the peritoneal cavity. The colon was massively dilated from cecum to the distal rectosigmoid. The sigmoid colon was dusky, suggesting vascular compromise. It was tightly rotated with a total obstruction above the rectum. The bowel was gently removed from the peritoneal cavity and was derotated clockwise until the mesentery was decompressed. It had prompt return of vascularity with pulsatile flow. Once this was done, it was extended down to the distal sigmoid and the sigmoid obstruction was relieved. The bowel was then followed proximally. There was partial rotation of the transverse colon, but it was not totally complete. The transverse colon was followed over to the right upper quadrant. In the right upper quadrant, the cecum was found and it appeared to be above the liver. It was gently removed and the cecum had rotated counterclockwise and was paper thin. Using gentle maneuvers, it was moved downward and placed in the right lower quadrant. There was partial rotation, which was relieved with this maneuver. Once this was done, the colon was totally functional and the vascularity was totally restored. The colon was then followed from the cecum down to the rectum. There was no evidence of obstruction. Because of the massive dilation, the possibility of subtotal resection was entertained, but the patient was hemodynamically and cardiovascularly compromised, so it was elected not to do so. The small bowel was then inspected. It was not enlarged. It was followed from the ligament of Treitz down to the ileocecal valve, and there was no compromise. The cecum was plicated to the right lower quadrant peritoneum using three sutures of 3-0 silk through the taenia, taking care not to puncture the full thickness of the bowel. The sigmoid was plicated with three sutures at two points in the mid abdomen to try to prevent further rotation. Once this was done, all the bowel was then returned to the peritoneal cavity. Sponge, needle, instrument, and blade counts were verified as correct. The fascia was closed with running #1 Prolene. Subcutaneous tissue was closed with 2-0 Monocryl. Skin was closed with amena. The patient was hemodynamically improved by this time but was left intubated and transferred to the ICU in critical condition. LCS:[facility] Job ID: [id number] Doc ID: [id number] Gilles Bond M.D.
== END 2021-09-25 14:16 | disposition expired | DRG 853 ==
LOC: ED 15:15 → ICU 23:53
PROVIDERS: ADMIT Internal Medicine; ATTEND Internal Medicine